=== PATIENT | male | born 1985 | race Caucasian/White ===

== ENCOUNTER 2020-02-03 23:16 | Emergency (ER) | payer SELFPAY ==
[~2020-02-03] VITALS: Ht 177.8 cm; Wt 79.0 kg
--- NOTE | 2020-02-03 23:27 | PHYS DOC ---
Past History Past Medical History: Anxiety, Depression Additional Past Medical Histor: self cutting Past Surgical History: No Surgical History Smoking: Cigarettes Alcohol Use: Occasionally Drug Use: Marijuana General Adult HPI: HPI: Patient is a [age] year old [sex] who presents with [] Review of Systems: Review of Systems: Constitutional: Denies fever or chills Eyes: Denies change in visual acuity HENT: Denies nasal congestion or sore throat Respiratory: Denies cough or shortness of breath Cardiovascular: Denies chest pain or edema GI: Denies abdominal pain, nausea, vomiting, bloody stools or diarrhea : Denies dysuria Musculoskeletal: Denies back pain or joint pain Integument: Denies rash Neurologic: Denies headache, focal weakness or sensory changes Endocrine: Denies polyuria or polydipsia Lymphatic: Denies swollen glands Psychiatric: Denies depression or anxiety Heart Score: Risk Factors: Risk Factors: DM, Current or recent (<one month) smoker, HTN, HLP, family history of CAD, obesity. Risk Scores: Score 0 - 3: 2.5% MACE over next 6 weeks - Discharge Home Score 4 - 6: 20.3% MACE over next 6 weeks - Admit for Clinical Observation Score 7 - 10: 72.7% MACE over next 6 weeks - Early Invasive Strategies Physical Exam: PE: Constitutional: Well developed, well nourished, no acute distress, non-toxic appearance. [] HENT: Normocephalic, atraumatic, bilateral external ears normal, oropharynx moist, no oral exudates, nose normal. [] Eyes: PERRLA, EOMI, conjunctiva normal, no discharge. [] Neck: Normal range of motion, no tenderness, supple, no stridor. [] Cardiovascular:Heart rate regular rhythm, no murmur [] Lungs & Thorax: Bilateral breath sounds clear to auscultation [] Abdomen: Bowel sounds normal, soft, no tenderness, no masses, no pulsatile masses. [] Skin: Warm, dry, no erythema, no rash. [] Back: No tenderness, no CVA tenderness. [] Extremities: No tenderness, no cyanosis, no clubbing, ROM intact, no edema. [] Neurologic: Alert and oriented X 3, normal motor function, normal sensory function, no focal deficits noted. [] Psychologic: Affect normal, judgement normal, mood normal. [] EKG: EKG: @2321 Sinus tachycardia at 110bpm, NO ST elevation, QRS 94ms, QT/QTc 334/458ms Radiology/Procedures: Radiology/Procedures: [] Course & Med Decision Making: Course & Med Decision Making Pertinent Labs and Imaging studies reviewed. (See chart for details) [] Dragon Disclaimer: Dragon Disclaimer: This electronic medical record was generated, in whole or in part, using a voice recognition dictation system. Departure Departure: Impression: Primary Impression: Anxiety Additional Impression: Atypical chest pain Disposition: 01 HOME/RESIDENCE PRIOR TO ADM (back to police custody) Condition: STABLE Patient Instructions: Anxiety and Panic Attacks, [id number], Chest Pain (Nonspecific), [id number] Scripts Lorazepam (ATIVAN) 1 Mg Tablet 0.5 TAB PO TID PRN for ANXIETY MDD 3 Tablet(s), #6 TAB 0 Refills Prov: CLAIR MERIDA DO 02/03/20 CLAIR MERIDA DO Feb 03, 2020 23:27
--- NOTE | 2020-02-03 23:47 | RAD ---
Exam: Chest one view INDICATION: Chest pain TECHNIQUE: Frontal view of the chest Comparisons: None FINDINGS: The cardiomediastinal silhouette and pulmonary vessels are within normal limits. The lung and pleural spaces are clear. IMPRESSION: No acute cardiopulmonary process. Electronically signed by: Shyanne Blevins MD (02/03/2020 11:44 PM) [facility]
[2020-02-03] MEDS ORDERED: LORA-254 PO (23:50)
[2020-02-04] VITALS: BP 131/82
[2020-02-04] MEDS ORDERED: LORazepam 1 MG TABLET PO ONE
[2020-02-04] MEDS ORDERED: LORazepam 1 MG TABLET ONE (00:10)
--- NOTE | 2020-02-04 04:30 | EKG ---
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
== END 2020-02-04 00:12 | disposition home or self-care (01) ==
LOC: ER 23:16
DX: F41.9 Anxiety disorder, unspecified (principal); R07.89 Other chest pain; F31.9 Bipolar disorder, unspecified; F17.210 Nicotine dependence, cigarettes, uncomplicated; Z91.5 Personal history of self-harm
CPT/HCPCS: 36415; 71045; 84484; 93005; 99285

== ENCOUNTER 2020-08-01 10:59 | Emergency (ER) | payer SELFPAY ==
[~2020-08-01 10:59] MED LIST: LORA-254 PO
== END 2020-08-01 11:18 | disposition left against medical advice (07) ==
LOC: ER 10:59
DX: R10.9 Unspecified abdominal pain (principal); R11.10 Vomiting, unspecified; Z53.21 Procedure and treatment not carried out due to patient leaving prior to being seen by health care provider

== ENCOUNTER 2020-08-07 22:30 | Emergency (ER) | payer SELFPAY ==
[~2020-08-07] VITALS: Ht 177.8 cm; Wt 79.0 kg
[2020-08-07] MEDS ORDERED: ONDANSETRON ODT 4 MG TAB.RAPDIS PO ONE (23:45)
[2020-08-07] MEDS ORDERED: diazePAM 5 MG TABLET. PO ONE (23:45)
--- NOTE | 2020-08-08 01:54 | PHYS DOC ---
Past History Past Medical History: Anxiety, Depression Additional Past Medical Histor: self cutting Past Surgical History: No Surgical History Smoking: Cigarettes Alcohol Use: Heavy Drug Use: Marijuana Adult General Chief Complaint Chief Complaint: ABDOMINAL PAIN HPI HPI Patient is a 35-year-old male who presents to the emergency department with a chief complaint of right lower quadrant pain. States he quit drinking alcohol and taking Ativan about 3 days ago but has not had a bowel movement in approximately 5 days. States over the last couple of days he has had several episodes of nonbloody nonbilious emesis and feels nauseous most of the time. States he said decreased appetite as well. Denies any recent travel, illnesses, fevers, chest pain, shortness of breath, dysuria, hematuria or blood in the stool. Review of Systems Review of Systems Review of systems otherwise unremarkable except noted in HPI Current Medications Current Medications Current Medications Medications (Trade) Dose Ordered Sig/Netta Start Time Stop Time Status Last Admin Dose Admin Diazepam (Valium) 10 mg 1X ONCE 08/07/20 23:45 08/07/20 23:46 DC 08/07/20 23:43 10 MG Ondansetron HCl (Zofran Odt) 8 mg 1X ONCE 08/07/20 23:45 08/07/20 23:46 DC 08/07/20 23:42 8 MG Allergies Allergies Allergies Coded Allergies Type Severity Reaction Last Updated Verified No Known Allergies Allergy Unknown 02/04/20 Yes Physical Exam Physical Exam Constitutional: Well developed, well nourished, no acute distress, non-toxic appearance. [] HENT: Normocephalic, atraumatic, bilateral external ears normal, oropharynx moist, no oral exudates, nose normal. [] Eyes: conjunctiva normal, no discharge. [] Cardiovascular: Sinus tachycardia Lungs & Thorax: Bilateral breath sounds clear to auscultation [] Abdomen: soft, right lower quadrant tenderness no masses, no pulsatile masses. [] Skin: Warm, dry, no erythema, no rash. [] Back: No tenderness, no CVA tenderness. [] Extremities: No tenderness, no cyanosis, no clubbing, ROM intact, no edema. [] Neurologic: Alert and oriented X 3, normal motor function, normal sensory function, no focal deficits noted. [] Psychologic: Affect normal, judgement normal, mood normal. [] EKG EKG [] Radiology/Procedures Radiology/Procedures []CT SCAN OF THE ABDOMEN AND PELVIS WITH IV CONTRAST. History: Reason: rlq pain, OMNI 300, 75ml / Spl. Instructions: / History: Comparison:None. Procedure: Contiguous axial images of the abdomen and pelvis were performed after the administration of 75 cc of Omni 300 IV contrast. Oral contrast: No. Findings: There is a 6.3 cm x 6.3 cm mixed cystic solid mass with calcifications arise from the head of the pancreas which appears to protrude into the duodenal sweep. There is inflammation surrounding the distal body and tail of the pancreas the pancreatic duct is mildly dilated. The common bile duct is dilated to 1.3 cm and appears to directly involve the cystic portion of this mass. The gallbladder is normal. The appendix is normal. The left colon is collapsed however the transverse colon and right colon are distended. There is a 2.5 cm length of mild to moderate wall thickening circumferentially in the mid transverse colon. Liver: Unremarkable Spleen: Unremarkable Adrenal Glands: Unremarkable Kidneys: Unremarkable There is no mass or lymphadenopathy. There is no free air. There is no free fluid. The urinary bladder appears normal. Impression: 1. Large mass appears to involve the head of pancreas and the distal common bile duct and protrudes into the duodenal sweep. This could be benign or malignant. Recommend ERCP. 2. Dilated pancreatic duct and inflammation surrounding the distal pancreas consistent with pancreatitis. 3. Apple core lesion of the mid transverse colon resulting in mild obstructive changes of the colon this could be adenocarcinoma. End impression PQRS Compliance Statement: Heart Score C/O Chest Pain: No Risk Factors: Risk Factors: DM, Current or recent (<one month) smoker, HTN, HLP, family history of CAD, obesity. Risk Scores: Risk Factors: DM, Current or recent (<one month) smoker, HTN, HLP, family history of CAD, obesity. Course & Med Decision Making Course & Med Decision Making Patient is a 35-year-old male who presents with right lower quadrant pain, nausea, vomiting and no bowel movement for 5 days Vital signs notable for tachycardia. Physical exam noted above. Patient placed on the monitor with IV access established and IV fluid resuscitation begun. Given Zofran and diazepam. Given morphine for pain control. Laboratory analysis notable for mild leukocytosis, elevated LFTs and a lipase greater than 13,000 suggestive of pancreatitis. Imaging notable for a large mass over the head of the pancreas which protrudes into the distal common bile duct and protrudes into the duodenum, with dilated pancreatic duct and inflammation consistent with pancreatitis with an apple core lesion in the transverse colon suggestive of adenocarcinoma. Patient continued on pain and nausea control. Discussed findings with family and recommended transfer to [facility] for continued evaluation and treatment by GI. Family grateful, verbalized understanding and agreed with plan of transfer and admission.. [] Dragon Disclaimer Dragon Disclaimer This electronic medical record was generated, in whole or in part, using a voice recognition dictation system. Departure Departure: Impression: Primary Impression: Pancreatitis due to biliary obstruction Additional Impressions: Mass of colon Pancreatic mass Disposition: 02 DC/TRF OTHER SHORT TERM HOS Admitting Physician: Marci Vega Condition: IMPROVED Referrals: PCP,NO (PCP) Problem Qualifiers MINGO JIMENEZ MD Aug 08, 2020 01:53
[2020-08-08] MEDS ORDERED: MORPHINE SULFATE 4 MG/ML DISP.SYRIN. IV ONE ×2 (02:15→04:00)
[2020-08-08] MEDS ORDERED: IOHEXOL 300 MG/ML 75 ML VIAL. IV ONE (02:15)
[2020-08-08] MEDS ORDERED: IV RINGERS SOLUTION,LACTATED 1,000 ML IV ONE ×2 (02:15→04:00)
[2020-08-08 02:20] LABS: BASO # 0.2 x10^3/uL (0.0-0.2); BASO % 1 % (0-3); EOS # 0.3 x10^3/uL (0.0-0.7); EOS % 2 % (0-3); HEMATOCRIT 49.1 % (39.0-53.0); HEMOGLOBIN 17.3 g/dL (13.0-17.5); LYMPH # 1.6 x10^3/uL (1.0-4.8); LYMPH % 13 % (24-48); MEAN CORPUSCULAR HEMOGLOBIN 32 pg (25-35); MEAN CORPUSCULAR HGB CONC 35 g/dL (31-37); MEAN CORPUSCULAR VOLUME 90 fL (79-100); MONO # 0.8 x10^3/uL (0.0-1.1); MONO % 7 % (0-9); NEUT # 9.8 x10^3uL (1.8-7.7); NEUT % 77 % (31-73); PLATELET COUNT 342 x10^3/uL (140-400); RED BLOOD COUNT 5.43 x10^6/uL (4.30-5.70); RED CELL DISTRIBUTION WIDTH 14.4 % (11.5-14.5); WHITE BLOOD COUNT 12.7 x10^3/uL (4.0-11.0)
[2020-08-08 02:32] LABS: CALCIUM 9.8 mg/dL (8.5-10.1); CREATININE 0.7 mg/dL (0.7-1.3); GFR 128.3
[2020-08-08 02:38] LABS: ALBUMIN 3.6 g/dL (3.4-5.0); ALBUMIN/GLOBULIN RATIO 1.1 (1.0-1.7); TOTAL BILIRUBIN 0.6 mg/dL (0.2-1.0); TOTAL PROTEIN 6.9 g/dL (6.4-8.2)
--- NOTE | 2020-08-08 03:31 | RAD ---
CT SCAN OF THE ABDOMEN AND PELVIS WITH IV CONTRAST. History: Reason: rlq pain, OMNI 300, 75ml / Spl. Instructions: / History: Comparison:None. Procedure: Contiguous axial images of the abdomen and pelvis were performed after the administration of 75 cc o f Omni 300 IV contrast. Oral contrast: No. Findings: There is a 6.3 cm x 6.3 cm mixed cystic solid mass with calcifications arise from the head of the perry creas which appears to protrude into the duodenal sweep. There is inflammation surrounding the distal body and tail of the pancreas the pancreatic duct is mildly dilated. The common bile duct is dilated to 1.3 cm and appears to directly involve the cystic portion of this mass. The gallbladder is normal. The appendix is normal. The left colon is collapsed however the transverse colon and right colon are distended. There is a 2. 5 cm length of mild to moderate wall thickening circumferentially in the mid transverse colon. Liver: Unremarkable Spleen: Unremarkable Adrenal Glands: Unremarkable Kidneys: Unremarkable There is no mass or lymphadenopathy. There is no free air. There is no free fluid. The urinary bladder appears normal. Impression: 1. Large mass appears to involve the head of pancreas and the distal common bile duct and protrudes i nto the duodenal sweep. This could be benign or malignant. Recommend ERCP. 2. Dilated pancreatic duct and inflammation surrounding the distal pancreas consistent with pancreati tis. 3. Apple core lesion of the mid transverse colon resulting in mild obstructive changes of the colon t his could be adenocarcinoma. End impression PQRS Compliance Statement: One or more of the following individualized dose reduction techniques were utilized for this examinat ion: 1. Automated exposure control 2. Adjustment of the mA and/or kV according to patient size 3. Use of iterative reconstruction technique Electronically signed by: Frank Costello III, MD (08/08/2020 3:28 AM) [facility]
[2020-08-08] MEDS ORDERED: METOCLOPRAMIDE HCL 10 MG/2 ML VIAL. IVP ONE (04:00)
[2020-08-08 05:10] VITALS: BP 131/68
== END 2020-08-08 05:22 | disposition short-term general hospital (02) ==
LOC: ER 22:30
DX: K85.90 Acute pancreatitis without necrosis or infection, unspecified (principal); K63.9 Disease of intestine, unspecified; K86.9 Disease of pancreas, unspecified; F41.9 Anxiety disorder, unspecified; F32.9 Major depressive disorder, single episode, unspecified; F17.210 Nicotine dependence, cigarettes, uncomplicated; F12.10 Cannabis abuse, uncomplicated
CPT/HCPCS: 36415; 74177; 80053; 83690; 85025; 96361; 96374; 96375; 96376; 99285; J2270; J2765; J7120; Q0162; Q9967

== ENCOUNTER 2020-08-31 10:24 | Emergency (ER) | payer SELFPAY ==
[~2020-08-31] VITALS: Ht 177.8 cm; Wt 72.1 kg
[2020-08-31] MEDS: IV NORMAL SALINE 1,000ML 1,000 ML IV SCH (10:46)
[2020-08-31] MEDS: ONDANSETRON PF 4 MG/2 ML VIAL. IVP ONE (10:47)
[2020-08-31] MEDS: MORPHINE SULFATE 4 MG/ML DISP.SYRIN. IV ONE (10:47)
[2020-08-31] MEDS: FAMOTIDINE 20 MG/2 ML VIAL IVP ONE (10:47)
--- NOTE | 2020-08-31 10:48 | EKG ---
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
[2020-08-31] MEDS ORDERED: IOHEXOL 240 MG/ML 50ML VIAL. ONE (10:56)
[2020-08-31 11:10] LABS: BASO # 0.1 x10^3/uL (0.0-0.2); BASO % 1 % (0-3); EOS # 0.8 x10^3/uL (0.0-0.7); EOS % 4 % (0-3); HEMATOCRIT 49.7 % (39.0-53.0); HEMOGLOBIN 16.9 g/dL (13.0-17.5); LYMPH # 2.4 x10^3/uL (1.0-4.8); LYMPH % 13 % (24-48); MEAN CORPUSCULAR HEMOGLOBIN 32 pg (25-35); MEAN CORPUSCULAR HGB CONC 34 g/dL (31-37); MEAN CORPUSCULAR VOLUME 93 fL (79-100); MONO # 0.7 x10^3/uL (0.0-1.1); MONO % 4 % (0-9); NEUT % 78 % (31-73); PLATELET COUNT 379 x10^3/uL (140-400); RED BLOOD COUNT 5.33 x10^6/uL (4.30-5.70); RED CELL DISTRIBUTION WIDTH 14.8 % (11.5-14.5); WHITE BLOOD COUNT 17.9 x10^3/uL (4.0-11.0)
--- NOTE | 2020-08-31 11:10 | PHYS DOC ---
Past History Past Medical History: Alcoholism, Anxiety, Depression, Pancreatitis Additional Past Medical Histor: self cutting Past Surgical History: No Surgical History Smoking: Cigarettes Alcohol Use: Heavy Drug Use: Marijuana General Adult EDM: Chief Complaint: ABDOMINAL PAIN HPI: HPI: 35-year-old male with past medical history of pancreatitis presents with diffuse abdominal discomfort with associated nausea. Patient reports symptoms started last night. Patient with history of recent pancreatitis requiring admission to [facility]. Patient was initially seen at [facility] in the emergency department on 08/07/2020. Patient was noted to have lipase greater than 13,[address] finding concerning for mass on the head of pancreas with associated common bile duct dilatation and common bile duct stones. There was also concern for a possible "apple core lesion of the transverse colon "at that time. Patient was subsequently admitted at [facility] and seen by GI and general surgery. Patient underwent procedure to aspirate the mass/cyst at the head of the pancreas. Patient was admitted for 14 days with IV fluid, pain/nausea medication, and was also on TPN. Patient subsequently discharged on 08/21/2020. Patient reports an ERCP was not performed nor was a ch olecystectomy. Patient was advised these were outpatient procedures. Patient reports given his lack of insurance he was unable to afford these procedures/surgeries. Patient denies trauma. Denies known sick contacts. Denies known exposure to COVID-19. Patient also reports history of alcohol abuse but reports he has not drank any alcohol since before his prior admission. Review of Systems: Review of Systems: Constitutional: Denies fever or chills; reports generalized malaise Eyes: Denies redness or eye pain HENT: Denies nasal congestion or sore throat Respiratory: Denies cough or shortness of breath Cardiovascular: Denies chest pain or palpitations GI: Reports diffuse abdominal pain and nausea; denies vomiting : Denies dysuria or hematuria Musculoskeletal: Denies back pain or joint pain Integument: Denies rash or skin lesions Neurologic: Denies headache, focal weakness or sensory changes Complete systems were reviewed and found to be within normal limits, except as documented in this note. Current Medications: Current Meds: Current Medications Medications (Trade) Dose Ordered Sig/Netta Start Time Stop Time Status Last Admin Dose Admin Famotidine (Pepcid Vial) 20 mg 1X ONCE 08/31/20 10:45 08/31/20 10:54 DC 08/31/20 10:47 20 MG Iohexol (Omnipaque 240 Mg/ml) 50 ml 1X ONCE 08/31/20 11:15 08/31/20 11:16 UNV Iohexol (Omnipaque 300 Mg/ml) 75 ml 1X ONCE 08/31/20 11:15 08/31/20 11:16 UNV Morphine Sulfate (Morphine 4mg Syringe) 4 mg 1X ONCE 08/31/20 10:45 08/31/20 10:54 DC 08/31/20 10:47 4 MG Ondansetron HCl (Zofran) 4 mg 1X ONCE 08/31/20 10:45 08/31/20 10:54 DC 08/31/20 10:47 4 MG Sodium Chloride 1,000 ml @ 100 mls/hr Q10H 08/31/20 10:45 08/31/20 20:44 08/31/20 10:46 100 MLS/HR Allergies: Allergies: Allergies Coded Allergies Type Severity Reaction Last Updated Verified No Known Allergies Allergy Unknown 02/04/20 Yes Physical Exam: PE: Constitutional: Well developed, well nourished, moderate pain, appears unco mfortable, non-toxic appearance HENT: Normocephalic, atraumatic Eyes: Conjunctiva normal, no discharge Neck: Normal range of motion, supple Lungs & Thorax: No respiratory distress, equal chest rise and fall Abdomen: Soft, diffuse tenderness, voluntary guarding, slight distention Skin: Warm, dry, no erythema, no rash Back: No tenderness, no CVA tenderness Extremities: No tenderness, ROM intact, no edema Neurologic: Alert and oriented X 3, no focal deficits noted Psychologic: Affect normal, judgment normal Current Patient Data: Vital Signs: Vital Signs Date Time Temp Pulse Resp B/P (MAP) Pulse Ox O2 Delivery O2 Flow Rate FiO2 08/31/20 10:24 130 60 129/66 (87) 97 Room Air EKG: EKG: @1035 NSR at 99bpm, NO ST elevation, QRS 94ms, QT/QTc 350/449ms Radiology/Procedures: Radiology/Procedures: PROCEDURE: CT ABD PELV W/ORAL&IV CONTRAST CLINICAL HISTORY: Diffuse abdominal pain TECHNIQUE: CT of the abdomen and pelvis was performed using standard technique, scanning from just above the dome of the diaphragm to the symphysis pubis fol lowing administration of intravenous contrast. CT Dose Reduction Employed: One or more of the following individualized dose r eduction techniques were utilized for this examination: 1. Automated exposure control 2. Adjustment of the mA and/or kV according to patient size 3. Use of iterative reconstruction technique. COMPARISON: CT abdomen/pelvis 08/16/2020 FINDINGS: Partially visualized heart and lung bases unremarkable. Decreased size of the multilocular collection/cystic lesion in the pancreatico duodenal groove measuring up to 3.9 x 4.2 cm on today's exam, previously 5.5 x 6.2 cm. Apparent communication with the distal common bile duct is again noted with slightly decreased diameter of the common bile duct, measuring 11 mm on today's exam and 13 mm previously. Similar-appearing intrahepatic biliary ductal dilation and dilation of the main pancreatic duct. Multiple small ca lcifications/stones in the vicinity of the distal common bile duct and along the medial margin of the collection, similar to prior study. The mass collection appears to surround at least 75 percent of the descending duodenal circumference with increased reactive changes in the duodenum and gastric antrum. There is also increased reactive changes in the ascending and proximal transverse colon. Increased moderate to marked mesenteric stranding in the right hemiabdomen with mild simple appearing fluid extending from the flora hepatis, along the dependent right hemiabdomen/paracolic gutter, and into the rectovesical pouch. Liver, gallbladder, spleen, adrenal glands, and kidneys unchanged. Mildly filled urinary bladder. No dilated bowel. Partially visualized appendix unremarkable. Arterial atherosclerotic calcification without aneurysm. No acute osseous abnormality. IMPRESSION: Decreased size of the nonspecific multilocular collection/cystic lesion in the pancreaticoduodenal groove, however, there are increased surrounding inflammatory/reactive changes as described. Electronically signed by: Celso Pete DO (08/31/2020 1:33 PM) [facility] Heart Score: C/O Chest Pain: N/A Course & Med Decision Making: Course & Med Decision Making Pertinent Labs and Imaging studies reviewed. (See chart for details) Patient with history of pancreatitis with cyst and prior choledocholithiasis presents with continued pain despite recent admission at [facility]. Abdomen with peritoneal signs. Pain/nausea addressed. IV fluid hydration given. Labs obtained and posted to chart. Lipase elevated to >4000. CT abdomen/pelvis with findings of of continued pancreatitis with continued choledocholithiasis to distal common bile duct despite ductal dilatation down from 13 mm to 11 mm. Patient requiring frequent pain control. Patient requiring admission. Offered readmission at [facility] given lack of GI and general surgery at [facility]. Patient requesting to be transferred to as he was dissatisfied with his previous care. Utilize transfer center. excepting of transfer for admission. Dr. Rickey Lang accepting of admission. Patient stable for transfer for admission to . Discussed findings and plan with patient and family, who acknowledge understanding and agreement. Maynor Disclaimer: Maynor Disclaimer: This electronic medical record was generated, in whole or in part, using a voice recognition dictation system. Departure Departure: Impression: Primary Impression: Pancreatitis Qualified Codes: K85.10 - Biliary acute pancreatitis without necrosis or infection Additional Impression: Choledocholithiasis Disposition: 02 SHORT TERM HOSPITAL (- Dr. Rickey Lang) Condition: STABLE Referrals: PCP,SYD (PCP) CLAIR MERIDA DO August 31, 2020 11:10
[2020-08-31] MEDS: IOHEXOL 240 MG/ML 50ML VIAL. PO ONE (11:51)
[2020-08-31] MEDS: IOHEXOL 300 MG/ML 75 ML VIAL. IV ONE (11:51)
[2020-08-31 11:59] LABS: ALBUMIN/GLOBULIN RATIO 1.2 (1.0-1.7); ALK PHOS 110 U/L (46-116); ALT (SGPT) 33 U/L (16-63); ANION GAP 9 (6-14); AST (SGOT) 15 U/L (15-37); BLOOD UREA NITROGEN 12 mg/dL (8-26); BUN/CREATININE RATIO 17 (6-20); CALCIUM 8.1 mg/dL (8.5-10.1); CARBON DIOXIDE 30 mmol/L (21-32); CHLORIDE 105 mmol/L (98-107); CREATININE 0.7 mg/dL (0.7-1.3); GFR 128.3; GLUCOSE 115 mg/dL (70-99); POTASSIUM 4.4 mmol/L (3.5-5.1); SODIUM 144 mmol/L (136-145); TOTAL BILIRUBIN 0.7 mg/dL (0.2-1.0); TOTAL PROTEIN 5.6 g/dL (6.4-8.2)
[2020-08-31 12:31] LABS: LIPASE 4159 U/L (73-393)
--- NOTE | 2020-08-31 13:35 | RAD ---
EXAMINATION: CT ABDOMEN+PELVIS W (CT ABDOMEN/PELVIS WITH IV CONTRAST) CLINICAL HISTORY: Diffuse abdominal pain TECHNIQUE: CT of the abdomen and pelvis was performed using standard technique, scanning from just ab ove the dome of the diaphragm to the symphysis pubis following administration of intravenous contrast . CT Dose Reduction Employed: One or more of the following individualized dose reduction techniques wer e utilized for this examination: 1. Automated exposure control 2. Adjustment of the mA and/or kV ac cording to patient size 3. Use of iterative reconstruction technique. COMPARISON: CT abdomen/pelvis 08/16/2020 FINDINGS: Partially visualized heart and lung bases unremarkable. Decreased size of the multilocular collection/cystic lesion in the pancreaticoduodenal groove measuri ng up to 3.9 x 4.2 cm on today's exam, previously 5.5 x 6.2 cm. Apparent communication with the dista l common bile duct is again noted with slightly decreased diameter of the common bile duct, measuring 11 mm on today's exam and 13 mm previously. Similar-appearing intrahepatic biliary ductal dilation a nd dilation of the main pancreatic duct. Multiple small calcifications/stones in the vicinity of the distal common bile duct and along the medial margin of the collection, similar to prior study. The ma ss collection appears to surround at least 75 percent of the descending duodenal circumference with i ncreased reactive changes in the duodenum and gastric antrum. There is also increased reactive change s in the ascending and proximal transverse colon. Increased moderate to marked mesenteric stranding i n the right hemiabdomen with mild simple appearing fluid extending from the flora hepatis, along the dependent right hemiabdomen/paracolic gutter, and into the rectovesical pouch. Liver, gallbladder, spleen, adrenal glands, and kidneys unchanged. Mildly filled urinary bladder. No dilated bowel. Partially visualized appendix unremarkable. Arterial atherosclerotic calcification without aneurysm. No acute osseous abnormality. IMPRESSION: Decreased size of the nonspecific multilocular collection/cystic lesion in the pancreaticoduodenal gr oove, however, there are increased surrounding inflammatory/reactive changes as described. Electronically signed by: Celso Pete DO (08/31/2020 1:33 PM) [facility]
[2020-08-31] MEDS: HYDROmorphone PF 1 MG/ML DISP.SYRIN IVP ONE ×3 (13:50→18:53)
[2020-08-31 14:05] LABS: BILIRUBIN,URINE SMALL (NEG); CLARITY,URINE CLOUDY; COLOR,URINE AMBER; GLUCOSE,URINE NEG (NEG); NITRITE,URINE NEG (NEG); UROBILINOGEN,URINE 0.2 mg/dL (0.2 mg/dL)
[2020-08-31 14:09] LABS: BACTERIA,URINE 0 /HPF (0-FEW); RBC,URINE OCC /HPF (0-2)
[2020-08-31 14:10] LABS: SQUAMOUS EPITHELIAL CELL,UR OCC /LPF
[2020-08-31] MEDS: NICOTINE 21MG PATCH. TD ONE (15:35)
[2020-08-31 16:19] LABS: % ATYL 1 % (0-0); % BANDS 1 % (0-9); % EOS 4 % (0-5); % LYMPHS 15 % (24-48); % MONOS 2 % (0-10); % SEGS 77 % (35-66)
[2020-08-31 16:23] LABS: PLT ESTIMATE ADEQUATE (ADEQUATE)
[2020-08-31 16:25] LABS: POLYCHROMASIA PRESENT
[2020-08-31 19:20] VITALS: BP 108/45
== END 2020-08-31 19:30 | disposition short-term general hospital (02) ==
LOC: ER 10:24
DX: K85.90 Acute pancreatitis without necrosis or infection, unspecified (principal); K80.50 Calculus of bile duct without cholangitis or cholecystitis without obstruction; F41.9 Anxiety disorder, unspecified; F32.9 Major depressive disorder, single episode, unspecified; F17.210 Nicotine dependence, cigarettes, uncomplicated; F10.20 Alcohol dependence, uncomplicated; Z20.822 Contact with and (suspected) exposure to COVID-19; Y90.0 Blood alcohol level of less than 20 mg/100 ml
CPT/HCPCS: 36415; 74177; 80053; 81001; 82553; 83605; 83690; 84484; 85007; 85025; 85610; 85730; 87426; 93005; 96361; 96374; 96375; 96376; 99285; C9803; G0480; J1170; J2060; J2270; J2405; J3490; J7030; Q9966; Q9967; U0003

== ENCOUNTER 2020-10-30 11:57 | Emergency (ER) | payer SELFPAY ==
[~2020-10-30] VITALS: Ht 177.8 cm; Wt 64.8 kg
[2020-10-30] MEDS ORDERED: IOHEXOL 300 MG/ML 75 ML VIAL. IV ONE (12:45)
[2020-10-30] MEDS ORDERED: IV NORMAL SALINE 1,000ML 1,000 ML IV ONE (12:45)
[2020-10-30] MEDS ORDERED: HYDROmorphone PF 1 MG/ML DISP.SYRIN IVP ONE ×2 (12:45→15:15)
[2020-10-30] MEDS ORDERED: ONDANSETRON PF 4 MG/2 ML VIAL. IVP ONE (12:45)
[2020-10-30 12:59] LABS: BASO # 0.1 x10^3/uL (0.0-0.2); BASO % 1 % (0-3); EOS # 0.3 x10^3/uL (0.0-0.7); EOS % 3 % (0-3); HEMATOCRIT 38.5 % (39.0-53.0); HEMOGLOBIN 12.6 g/dL (13.0-17.5); LYMPH # 1.4 x10^3/uL (1.0-4.8); LYMPH % 14 % (24-48); MEAN CORPUSCULAR HEMOGLOBIN 27 pg (25-35); MEAN CORPUSCULAR HGB CONC 33 g/dL (31-37); MEAN CORPUSCULAR VOLUME 83 fL (79-100); MONO # 0.5 x10^3/uL (0.0-1.1); MONO % 5 % (0-9); NEUT # 7.8 x10^3uL (1.8-7.7); NEUT % 78 % (31-73); PLATELET COUNT 354 x10^3/uL (140-400); RED BLOOD COUNT 4.63 x10^6/uL (4.30-5.70); RED CELL DISTRIBUTION WIDTH 18.3 % (11.5-14.5); WHITE BLOOD COUNT 10.1 x10^3/uL (4.0-11.0)
[2020-10-30 13:07] LABS: CALCIUM 9.8 mg/dL (8.5-10.1); POTASSIUM 4.1 mmol/L (3.5-5.1)
[2020-10-30 13:13] LABS: ALBUMIN 3.3 g/dL (3.4-5.0); ALBUMIN/GLOBULIN RATIO 0.7 (1.0-1.7); TOTAL BILIRUBIN 0.5 mg/dL (0.2-1.0); TOTAL PROTEIN 7.9 g/dL (6.4-8.2)
--- NOTE | 2020-10-30 13:30 | PHYS DOC ---
Past History Past Medical History: Alcoholism, Anxiety, Depression, Pancreatitis Additional Past Medical Histor: Colon (CLAIR GUNN APRN) Past Surgical History: Other Additional Past Surgical Histo: GI (CLAIR GUNN APRN) Smoking: Cigarettes Alcohol Use: Heavy Drug Use: Marijuana (CLAIR GNUN APRN) Adult General Chief Complaint Chief Complaint: MULTIPLE COMPLAINTS HPI HPI Patient is a 35-year-old male who presents to the emergency department with a chief complaint of diffuse abdominal pain and increased pain at his J-Vac insertion site on his right flank area since evening when he noticed his drain became clogged and he has been unable to flush saline through since. Patient reports a 9 out of 10 pain. States he had his J-Vac placed at [facility] 3 weeks ago, reports he called his [facility] physician Dr. Jhony Bellamy who has made him an appointment for replacement of his J-Vac drain this coming Saturday, November [id number]. Patient states he has been treating his pain with 15 mg morphine sulfate tablets and 5 mg oxycodones without relief. Patient states the J-Vac drain was placed related to a history of acute pancreatitis with abscesses that have required draining, patient states that he is being followed by a infectious disease physician who has identified the infection to be fungal in nature, patient states he just finished his oral antibiotic regimen of fluconazole yesterday. Patient states he came to the emergency department today because he can no longer take the pain. Patient also states he is having difficulty hearing out of both his ears. Denies ear pain. States that he can hear normally unless he is speaking and he notices decreased hearing while he is speaking. Patient denies any recent fever or chills, denies any nasal or chest congestion, denies chest pains. Patient reports his last bowel movement was 3 days ago a large amount of soft stool, states he has not had a bowel movement since. Patient denies any burning or pressure with urination. Patient denies any increased thirst or increased urination. Patient denies any dizziness, denies headaches, denies visual changes. Patient denies any other physical complaints or physical concerns. Patient states he used to drink alcohol but has not drank alcohol in the past 3 months. Patient states that he does smoke cigarettes but is trying to quit using nicotine patches, patient denies illicit drug use. (CLAIR GUNN APRN) Review of Systems Review of Systems 14 body systems of review of systems have been reviewed. See HPI for pertinent positives and negative responses, otherwise all other systems are negative, nonpertinent or noncontributory. (CLAIR GUNN APRN) Current Medications Current Medications Current Medications Medications (Trade) Dose Ordered Sig/Netta Start Time Stop Time Status Last Admin Dose Admin Hydromorphone HCl (Dilaudid) 1 mg 1X ONCE 10/30/20 12:45 10/30/20 12:46 DC 10/30/20 12:44 1 MG Iohexol (Omnipaque 300 Mg/ml) 75 ml 1X ONCE 10/30/20 12:45 10/30/20 12:48 DC Ondansetron HCl (Zofran) 4 mg 1X ONCE 10/30/20 12:45 10/30/20 12:46 DC 10/30/20 12:45 4 MG Sodium Chloride 1,000 ml @ 1,000 mls/hr 1X ONCE 10/30/20 12:45 10/30/20 13:44 10/30/20 12:44 1,000 MLS/HR (CLAIR GUNN APRN) Allergies Allergies Allergies Coded Allergies Type Severity Reaction Last Updated Verified No Known Allergies Allergy Unknown 02/04/20 Yes (CLAIR GUNN APRN) Physical Exam Physical Exam Constitutional: Well developed, well nourished, 35-year-old male in no apparent distress, nontoxic in appearance, patient's complaint of pain exceeds patient's physical appearance and presentation. HENT: Normocephalic, atraumatic. Bilateral TMs within normal limits, no drainage appreciated from bilateral external auditory canals, no erythema appreciated. Oropharynx pink, moist, no edema or erythema appreciated, patient speaking in normal voice tones, no drooling, no trismus appreciated. Eyes: Conjunctiva normal, no discharge. Neck: Normal range of motion, no stridor. Cardiovascular: No cyanosis appreciated, distal cap refill less than 2 seconds. Lungs & Thorax: Patient is in no respiratory distress, no audible adventitious lung sounds appreciated. Abdomen: Abdomen soft, diffuse tenderness to palpation, no discoloration of the skin or bruising of the abdomen appreciated. Normal bowel sounds per auscultation. Skin: Warm, dry, no erythema, no rash. Back: No tenderness, no deformities. Except for right flank at J-tube insertion site, tenderness to palpation, no erythema or drainage appreciated from insertion site, no induration or masses appreciated. J-tube sutured in place, does not appear to be dislodged, attempted to flush J-tube with normal saline without success, no pain elicited during flushing attempt with normal saline. Scant purulent drainage noted and drainage bag. Extremities: No tenderness, no cyanosis, no clubbing, ROM intact, no edema. Neurologic: Alert and oriented X 3, normal motor function, normal sensory function, no focal deficits noted. Psychologic: Affect normal, judgement normal, mood normal. (CLAIR GUNN APRN) Current Patient Data Vital Signs Vital Signs Date Time Temp Pulse Resp B/P (MAP) Pulse Ox O2 Delivery O2 Flow Rate FiO2 10/30/20 12:44 16 10/30/20 12:32 99.0 10/30/20 12:09 115 123/72 96 Lab Results Laboratory Tests Test 10/30/20 12:42 White Blood Count 10.1 x10^3/uL (4.0-11.0) Red Blood Count 4.63 x10^6/uL (4.30-5.70) Hemoglobin 12.6 g/dL (13.0-17.5) L Hematocrit 38.5 % (39.0-53.0) L Mean Corpuscular Volume 83 fL (79-100) Mean Corpuscular Hemoglobin 27 pg (25-35) Mean Corpuscular Hemoglobin Concent 33 g/dL (31-37) Red Cell Distribution Width 18.3 % (11.5-14.5) H Platelet Count 354 x10^3/uL (140-400) Neutrophils (%) (Auto) 78 % (31-73) H Lymphocytes (%) (Auto) 14 % (24-48) L Monocytes (%) (Auto) 5 % (0-9) Eosinophils (%) (Auto) 3 % (0-3) Basophils (%) (Auto) 1 % (0-3) Neutrophils # (Auto) 7.8 x10^3uL (1.8-7.7) H Lymphocytes # (Auto) 1.4 x10^3/uL (1.0-4.8) Monocytes # (Auto) 0.5 x10^3/uL (0.0-1.1) Eosinophils # (Auto) 0.3 x10^3/uL (0.0-0.7) Basophils # (Auto) 0.1 x10^3/uL (0.0-0.2) Sodium Level 137 mmol/L (136-145) Potassium Level 4.1 mmol/L (3.5-5.1) Chloride Level 98 mmol/L (98-107) Carbon Dioxide Level 30 mmol/L (21-32) Anion Gap 9 (6-14) Blood Urea Nitrogen 12 mg/dL (8-26) Creatinine 1.0 mg/dL (0.7-1.3) Estimated GFR (Cockcroft-Gault) 85.0 BUN/Creatinine Ratio 12 (6-20) Glucose Level 125 mg/dL (70-99) H Calcium Level 9.8 mg/dL (8.5-10.1) Total Bilirubin Pending Aspartate Amino Transferase (AST) Pending Alanine Aminotransferase (ALT) Pending Alkaline Phosphatase Pending Total Protein Pending Albumin Pending Albumin/Globulin Ratio Pending Lipase Pending (CLAIR GUNN APRN) EKG EKG [] (CLAIR GUNN APRN) Radiology/Procedures Radiology/Procedures PATIENT: MICHELLE VILLEDA EACCOUNT: [id number] : 1985 LOCATION: ER AGE: 35 SEX: M EXAM STATUS: REG ER ORD. PHYSICIAN: CLAIR GUNN APRN REASON: pancreatic disease hx, clogged j-tube drain, diffuse pain PROCEDURE: CT ABD PELV W/ IV CONTRST ONLY CT ABDOMEN+PELVIS W History: Reason: pancreatic disease hx, clogged j-tube drain, diffuse pain / Spl. Instructions: omni 300 75ml iv only / History: Technique: After the administration of intravenous contrast, CT imaging was performed of the abdomen and pelvis. Multiplanar images are reviewed. Exposure: One or more of the following individualized dose reduction techniques were utilized for this examination: 1. Automated exposure control 2. Adjustment of the mA and/or kV according to patient size 3. Use of iterative reconstruction technique. Comparison: August 31, 2020 Findings: Lower chest: No consolidation or pleural effusion. Abdomen and pelvis: Pancreatic and common bile duct stent noted. Pneumobilia. Air within the gallbladder. No gallbladder wall thickening. Pancreatic head calcifications. Previously seen cystic lesions within the region of the pancreatic head are significantly decreased and resolved. Right mid abdominal pigtail drainage catheter within previously seen inferior peripancreatic fluid collection with mild residual fluid surrounding the catheter gas. Mild stranding extending into the right lower quadrant decreased compared to prior. Small right posterior hepatic hypodensity, unchanged. The spleen, and adrenal glands are unremarkable. No hydronephrosis. No renal calculus. Decompressed urinary bladder. Moderately distended fluid-filled loops of proximal and mid small bowel throughout the abdomen. Transition point within the right lower abdomen in the region of inflammatory changes with bowel wall thickening inferior to the previous mentioned pigtail pigtail catheter. No pneumatosis. No pneumoperitoneum. There is tethering of small bowel within this region with potential fistulous communication. Heterogeneous area centrally within this region measures 2.7 x 2.5 x 4.9 cm. Multiple mildly prominent mesenteric lymph nodes, likely reactive. Normal appendix with contrast. Prior contrast throughout the colon. Bones: No pathologic osseous lesions. Impression: 1. Small bowel obstruction with transition point in the right lower quadrant and the region of inflammatory changes and small bowel tethering with potential fistulous communication. Recommend follow-up. Also recommend oral contrast at time of follow-up. 2. Heterogeneous region within the right lower quadrant inflammatory changes, may represent bowel loop. Recommend attention on follow-up to exclude abscess. 3. Right mid abdominal pigtail catheter with small surrounding fluid and gas. 4. Changes of chronic pancreatitis with pancreatic and common bile duct stent. Electronically signed by: Jesus Hein DO (10/30/2020 1:56 PM) [facility] DICTATED AND SIGNED BY: JESUS HEIN DO DATE: 10/30/20 1336 CC: CLAIR GUNN APRN; PCP,NO ~MTH0 0 (CLAIR GUNN APRN) Heart Score C/O Chest Pain: No Risk Factors: Risk Factors: DM, Current or recent (<one month) smoker, HTN, HLP, family history of CAD, obesity. Risk Scores: Risk Factors: DM, Current or recent (<one month) smoker, HTN, HLP, family history of CAD, obesity. (CLAIR GUNN APRN) Course & Med Decision Making Course & Med Decision Making Pertinent Labs and Imaging studies reviewed. (See chart for details) 35-year-old male, vital signs reviewed, presents emergency department concerning increased abdominal pain, and J-tube not draining, unable to flush J-tube at home since last . Physical examination concerning for J-tube drain plug, unable to flush with normal saline. Patient does not appear toxic, is in no obvious distress, does however complain of 9 out of 10 pain. With a history of acute pancreatitis with complications requiring J-tube drain and close atten tion by GI, interventional radiology, and infectious disease, will order IV saline lock, normal saline 1000 cc IV, 4 mg Zofran for nausea prophylaxis, 1 mg of Dilaudid IV, CBC, CMP, lactic acid, lipase. CT abdomen pelvis with IV contrast, will evaluate pain control after period of time. Discussed with patient after radiological imaging and lab work will consult with physicians. Patient is amenable to this plan. CT abdomen pelvis with IV contrast revealed small bowel obstruction with other abdominal anomaly, discussed findings with patient also discussed recommendation for admission to hospital, patient states he still requests [facility] related to his ongoing recent care has been at [facility]. Will consult transfer center. Ordered patient 100 mg fentanyl IV for 9 out of 10 pain. At 1425 discussed patient with [facility] center pharmaceutical service representative Daily KEITH, Daily KEITH states she will consult with her inpatient physician and call back. 1500 patient still complaining of 9 out of 10 pain, will give 1 more milligram IV Dilaudid, patient states that when he was at [facility] during his last admission he was receiving 4 mg of Dilaudid at a time. Discussed with patient 4 mg Dilaudid at 1 time is extremely high dosing, will give 1 mg at a time with constant bedside monitoring of cardiorespiratory status while giving disc pain medication. Patient amenable to this plan. At 1510 transfer center [employer] Daily KEITH return call reporting inpatient management physician Dr. Levar Mills agreed patient needs inpatient criteria and has accepted patient in transfer to [facility] for further evaluation and treatment of patient's physical presentation and findings. No further provider to provider report needed, [facility] center [employer] Daily KEITH states she will call back with a bed number for nurse report. EMTALA transfer forms reviewed and signed by ED attending physician Dr. Chan. At 1530 notified by the patient's ED nurse that the patient wishes to leave A GAINST MEDICAL ADVICE. The patient and I had an extensive discussion regarding the risks of leaving AMA including but not limited to , permanent disability, and worsening condition. Also had an extensive discussion with the patient regarding the benefits of excepting admission and transfer which include promotion of health and wellness, and ongoing treatment of disease processes. The patient acknowledged the risks and benefits and agreed to take full responsibility of leaving AGAINST MEDICAL ADVICE. The patient was alert and oriented x4 and had full medical decision-making capability when they signed the AMA forms. At 1545 notified transfer center [employer] Daily KEITH of patient's leaving AGAINST MEDICAL ADVICE, transfer center [employer] Daily KEITH stated she would let Dr. Levar Mills know of the situation. (CLAIR GUNN APRN) Course & Med Decision Making The patient was informed multiple times that his condition was serious and could potentially be life-threatening. Risks were explained to the patient including the possibility of and he refused to stay in the hospital or be transferred. He left AGAINST MEDICAL ADVICE. (KEITH CHAN DO) Dragon Disclaimer Dragon Disclaimer This electronic medical record was generated, in whole or in part, using a voice recognition dictation system. (CLAIR GUNN APRN) Attending Co-Sign The patient was seen and interviewed as well as examined at the bedside. The chart was reviewed. The case was discussed. Agree with the plan of care. (KEITH CHAN DO) Departure Departure: Impression: Primary Impression: Abdominal pain Additional Impressions: Abnormal abdominal CT scan Small bowel obstruction Pancreatic disease Jejunostomy tube site pain Left against medical advice Disposition: 07 LEFT AWOL/ELOPED Condition: GUARDED Referrals: PCP,NO (PCP) Additional Instructions: You were seen in the emergency department for a clogged J-tube during an increasing abdominal pain that is unrelieved with your oral pain medications at home. You were given IV Dilaudid and IV fentanyl for pain which you reported did not seem to help much. A CT scan of your abdomen and pelvis was performed today and revealed the following findings per our house radiologist interpretation: 1. Small bowel obstruction with transition point in the right lower quadrant and the region of inflammatory changes and small bowel tethering with potential fistulous communication. Recommend follow-up. Also recommend oral contrast at time of follow-up. 2. Heterogeneous region within the right lower quadrant inflammatory changes, may represent bowel loop. Recommend attention on follow-up to exclude abscess. 3. Right mid abdominal pigtail catheter with small surrounding fluid and gas. 4. Changes of chronic pancreatitis with pancreatic and common bile duct stent. Due to these findings, I have recommended to you admission to the hospital to see a surgeon today. You had requested [facility] and I arranged for you to be admitted to [facility] under the inpatient practicing physician Dr. Levar Mills. Dr. Levar Mills agreed to admit you to [facility] for further evaluation of your symptoms and CT findings. You have since decided to leave [place] emergency department AGAINST MEDICAL ADVICE. I spoke with you at bedside extensively regarding the risks and benefits of leaving AGAINST ME DICAL ADVICE versus excepting transfer and admission to [facility]. I have urged you to reconsider your decision to leave AGAINST MEDICAL ADVICE, however you have adamantly refused transfer and admission to [facility] stating that you want to stay at home with family during the holiday and are tired of your long recent admissions to hospitals. I have asked you to sign a leaving AGAINST MEDICAL ADVICE form which you agreed to do so. I strongly encourage you to please return to the nearest emergency department for worsening symptoms. I am very worried that your symptoms will worsen and your health will worsen and that you may suffer from permanent disability or from this decision to leave AGAINST MEDICAL ADVICE. Patient does not wish to proceed with medical care recommended by ROSELIA Parra. Patient given information related to possible compli cations, up to and including , which could occur as a result of leaving the hospital at this time. Patient verbalizes understanding of risks involved due to leaving against medical advice. Patient has signed AMA form. Problem Qualifiers Primary Impression: Abdominal pain Abdominal location: generalized Qualified Codes: R10.84 - Generalized abdominal pain CLAIR GUNN APRN Oct 30, 2020 13:30 KEITH CHAN DO Oct 31, 2020 07:13
--- NOTE | 2020-10-30 13:58 | RAD ---
CT ABDOMEN+PELVIS W History: Reason: pancreatic disease hx, clogged j-tube drain, diffuse pain / Spl. Instructions: omni 300 75ml iv only / History: Technique: After the administration of intravenous contrast, CT imaging was performed of the abdomen and pelvis. Multiplanar images are reviewed. Exposure: One or more of the following individualized dose reduction techniques were utilized for thi s examination: 1. Automated exposure control 2. Adjustment of the mA and/or kV according to patient size 3. Use of iterative reconstruction technique. Comparison: August 31, 2020 Findings: Lower chest: No consolidation or pleural effusion. Abdomen and pelvis: Pancreatic and common bile duct stent noted. Pneumobilia. Air within the gallblad solitario. No gallbladder wall thickening. Pancreatic head calcifications. Previously seen cystic lesions w ithin the region of the pancreatic head are significantly decreased and resolved. Right mid abdominal pigtail drainage catheter within previously seen inferior peripancreatic fluid collection with mild residual fluid surrounding the catheter gas. Mild stranding extending into the right lower quadrant d ecreased compared to prior. Small right posterior hepatic hypodensity, unchanged. The spleen, and adrenal glands are unremarkable . No hydronephrosis. No renal calculus. Decompressed urinary bladder. Moderately distended fluid-filled loops of proximal and mid small bowel throughout the abdomen. Jimenez sition point within the right lower abdomen in the region of inflammatory changes with bowel wall thi ckening inferior to the previous mentioned pigtail pigtail catheter. No pneumatosis. No pneumoperiton eum. There is tethering of small bowel within this region with potential fistulous communication. Het erogeneous area centrally within this region measures 2.7 x 2.5 x 4.9 cm. Multiple mildly prominent mesenteric lymph nodes, likely reactive. Normal appendix with contrast. Lydia or contrast throughout the colon. Bones: No pathologic osseous lesions. Impression: 1. Small bowel obstruction with transition point in the right lower quadrant and the region of infla mmatory changes and small bowel tethering with potential fistulous communication. Recommend follow-up . Also recommend oral contrast at time of follow-up. 2. Heterogeneous region within the right lower quadrant inflammatory changes, may represent bowel lo op. Recommend attention on follow-up to exclude abscess. 3. Right mid abdominal pigtail catheter with small surrounding fluid and gas. 4. Changes of chronic pancreatitis with pancreatic and common bile duct stent. Electronically signed by: Jesus Hein DO (10/30/2020 1:56 PM) [facility]
[2020-10-30 15:09] LABS: BACTERIA,URINE 0 /HPF (0-FEW); BILIRUBIN,URINE NEG (NEG); CLARITY,URINE CLEAR; COLOR,URINE AMBER; GLUCOSE,URINE NEG (NEG); NITRITE,URINE NEG (NEG); RBC,URINE 0 /HPF (0-2); SQUAMOUS EPITHELIAL CELL,UR OCC /LPF; UROBILINOGEN,URINE 0.2 mg/dL (0.2 mg/dL); WBC,URINE 0 /HPF (0-4)
[2020-10-30 15:36] VITALS: BP 133/84
== END 2020-10-30 15:51 | disposition left against medical advice (07) ==
LOC: ER 11:57
DX: K56.609 Unspecified intestinal obstruction, unspecified as to partial versus complete obstruction (principal); K86.9 Disease of pancreas, unspecified; R93.5 Abnormal findings on diagnostic imaging of other abdominal regions, including retroperitoneum; R10.84 Generalized abdominal pain; F41.9 Anxiety disorder, unspecified; F32.9 Major depressive disorder, single episode, unspecified; F17.210 Nicotine dependence, cigarettes, uncomplicated; F10.20 Alcohol dependence, uncomplicated; Z93.4 Other artificial openings of gastrointestinal tract status; Y90.9 Presence of alcohol in blood, level not specified
CPT/HCPCS: 36415; 74177; 80053; 81001; 83605; 83690; 85025; 96361; 96374; 96375; 96376; 99285; J1170; J2405; J3010; J7030

== ENCOUNTER 2020-12-12 09:52 | Emergency (ER) | payer MEDICAID ==
[~2020-12-12] VITALS: Ht 177.8 cm; Wt 64.8 kg
[2020-12-12] MEDS ORDERED: ONDANSETRON PF 4 MG/2 ML VIAL. IVP ONE (10:15)
[2020-12-12] MEDS ORDERED: MORPHINE SULFATE 4 MG/ML DISP.SYRIN. IV ONE (10:15)
[2020-12-12] MEDS ORDERED: IV NORMAL SALINE 1,000ML 1,000 ML IV ONE (10:15)
[2020-12-12 10:42] LABS: BASO # 0.1 x10^3/uL (0.0-0.2); BASO % 1 % (0-3); EOS # 0.1 x10^3/uL (0.0-0.7); EOS % 1 % (0-3); HEMATOCRIT 46.9 % (39.0-53.0); HEMOGLOBIN 16.1 g/dL (13.0-17.5); LYMPH # 1.2 x10^3/uL (1.0-4.8); LYMPH % 10 % (24-48); MEAN CORPUSCULAR HEMOGLOBIN 28 pg (25-35); MEAN CORPUSCULAR HGB CONC 34 g/dL (31-37); MEAN CORPUSCULAR VOLUME 83 fL (79-100); MONO # 0.5 x10^3/uL (0.0-1.1); MONO % 4 % (0-9); NEUT # 10.2 x10^3uL (1.8-7.7); NEUT % 85 % (31-73); PLATELET COUNT 309 x10^3/uL (140-400); RED BLOOD COUNT 5.66 x10^6/uL (4.30-5.70); RED CELL DISTRIBUTION WIDTH 18.6 % (11.5-14.5); WHITE BLOOD COUNT 12.1 x10^3/uL (4.0-11.0)
[2020-12-12 11:27] LABS: CALCIUM 9.2 mg/dL (8.5-10.1); CREATININE 0.6 mg/dL (0.7-1.3); GFR 153.3; POTASSIUM 3.9 mmol/L (3.5-5.1)
[2020-12-12 11:33] LABS: ALBUMIN 3.5 g/dL (3.4-5.0); TOTAL BILIRUBIN 0.5 mg/dL (0.2-1.0); TOTAL PROTEIN 7.1 g/dL (6.4-8.2)
--- NOTE | 2020-12-12 11:38 | RAD ---
INDICATION: Reason: EPIGASTRIC PAIN, HX PANCREATITIS / Spl. Instructions: / History: . COMPARISON: October 30, 2020 TECHNIQUE: Axial CT images obtained through the abdomen and pelvis without contrast. One or more of the following individualized dose reduction techniques were utilized for this examinat ion: 1. Automated exposure control; 2. Adjustment of the mA and/or kV according to patient size; 3 . Use of iterative reconstruction technique. FINDINGS: Abdominal aorta is not aneurysmal. Calcific atherosclerosis is seen. Fat-containing left inguinal hernia. Pneumobilia is seen as well as stent within the common bile duct. Liver is prominent in size. Mixed density at the pancreatic head and uncinate process with calcifications as well as low-density region within. There is adjacent edema to the fat at the pancreas as well as the duodenum. Duodenal w all appears prominent in thickness as well. Pancreatic duct stent is no longer seen with portion of t he pancreatic duct dilated up to about 4-5 mm. Spleen unremarkable. No hydronephrosis. Nodular thickening of the left adrenal gland. Urinary bladder is partially distended. Wall mildly prominent but could be from lack of distention. There is a drain seen within the right lower quadrant of the abdomen at the site of previously identi fied fluid and air collection. There is been interval decrease in the fluid and air collection with o nly a trace amount of fluid seen at this site with adjacent stranding to the fat. Repeat demonstration of inflammatory changes at the right lower quadrant of the abdomen. Appendix par tially seen measuring approximately 6-7 mm IMPRESSION: * Repeat demonstration of pigtail catheter in the right lower quadrant the abdomen with the surround ing fluid and air collection decreased from prior with only a trace amount of fluid seen at this site . There is some persistent edema and adjacent fluid tracking superiorly and inferiorly but this is a mild finding. * Heterogenous appearance of the pancreatic head and uncinate process with calcifications within the area as well as areas of low density which could be secondary to acute on chronic pancreatitis. Ther e is also wall thickening and edema of the adjacent duodenum which may be secondarily inflamed or sec ondary to duodenitis or duodenal ulcer. * There is a couple loops of small bowel the left-side of the abdomen with prominent wall which coul d be from contraction with enteritis not excluded. * Suspected appendix is borderline in size. Electronically signed by: Brandon Collier MD (12/12/2020 11:36 AM) [id number]
--- NOTE | 2020-12-12 11:46 | PHYS DOC ---
Past History Past Medical History: Alcoholism, Anxiety, Depression, Pancreatitis Additional Past Medical Histor: Colon (LEELEE GLASS APRN) Past Surgical History: Other Additional Past Surgical Histo: GI (LEELEE GLASS APRN) Smoking: Cigarettes Alcohol Use: Heavy Drug Use: Marijuana (LEELEE GLASS APRN) General Adult EDM: Chief Complaint: ABDOMINAL PAIN HPI: HPI: Patient is a 35-year-old male who presents with generalized abdominal pain. Patient states "I have been dealing with this abdominal pain for the last 3 months and had to have fluid drained from my belly 4 times". "They told me it was from pancreatitis". Patient's been taking pain meds at home but states is not helping. Patient is also complaining of nausea and vomiting. Patient's pain is 8/10. Patient has an appointment today with his surgeon for follow-up. (LEELEE GLASS APRN) Review of Systems: Review of Systems: Constitutional: Denies fever or chills Eyes: Denies change in visual acuity HENT: Denies nasal congestion or sore throat Respiratory: Denies cough or shortness of breath Cardiovascular: Denies chest pain or edema GI: Reports generalized abdominal pain, nausea. Denies vomiting or diarrhea. : Denies dysuria Musculoskeletal: Denies back pain or joint pain Integument: Denies rash Neurologic: Denies headache, focal weakness or sensory changes Endocrine: Denies polyuria or polydipsia Lymphatic: Denies swollen glands Psychiatric: Denies depression or anxiety (LEELEE GLASS APRN) Current Medications: Current Meds: Current Medications Medications (Trade) Dose Ordered Sig/[facility] Start Time Stop Time Status Last Admin Dose Admin Morphine Sulfate (Morphine 4mg Syringe) 4 mg 1X ONCE 12/12/20 10:15 12/12/20 10:19 DC 12/12/20 10:33 4 MG Ondansetron HCl (Zofran) 4 mg 1X ONCE 12/12/20 10:15 12/12/20 10:19 DC 12/12/20 10:31 4 MG Sodium Chloride 1,000 ml @ 1,000 mls/hr 1X ONCE 12/12/20 10:15 12/12/20 11:14 DC 12/12/20 10:29 1,000 MLS/HR (LEELEE GLASS APRN) Allergies: Allergies: Allergies Coded Allergies Type Severity Reaction Last Updated Verified No Known Allergies Allergy Unknown 02/04/20 Yes (LEELEE GLASS SUPERVISOR TYPE PHOTOGRAPHY) Physical Exam: PE: Constitutional: Well developed, well nourished, no acute distress, non-toxic appearance. [] HENT: Normocephalic, atraumatic, bilateral external ears normal, oropharynx moist, no oral exudates, nose normal. [] Eyes: PERRLA, EOMI, conjunctiva normal, no discharge. [] Neck: Normal range of motion, no tenderness, supple, no stridor. [] Cardiovascular:Heart rate regular rhythm, no murmur [] Lungs & Thorax: Bilateral breath sounds clear to auscultation [] Abdomen: Bowel sounds normal, soft, generalized tenderness. Skin: Warm, dry, no erythema, no rash. [] Back: No tenderness, no CVA tenderness. [] Extremities: No tenderness, no cyanosis, no clubbing, ROM intact, no edema. [] Neurologic: Alert and oriented X 3, normal motor function, normal sensory function, no focal deficits noted. [] Psychologic: Affect normal, judgement normal, mood normal. [] (LEELEE GLASS SUPERVISOR TYPE PHOTOGRAPHY) Current Patient Data: Labs: Laboratory Tests Test 12/12/20 10:25 White Blood Count 12.1 x10^3/uL (4.0-11.0) H Red Blood Count 5.66 x10^6/uL (4.30-5.70) Hemoglobin 16.1 g/dL (13.0-17.5) Hematocrit 46.9 % (39.0-53.0) Mean Corpuscular Volume 83 fL (79-100) Mean Corpuscular Hemoglobin 28 pg (25-35) Mean Corpuscular Hemoglobin Concent 34 g/dL (31-37) Red Cell Distribution Width 18.6 % (11.5-14.5) H Platelet Count 309 x10^3/uL (140-400) Neutrophils (%) (Auto) 85 % (31-73) H Lymphocytes (%) (Auto) 10 % (24-48) L Monocytes (%) (Auto) 4 % (0-9) Eosinophils (%) (Auto) 1 % (0-3) Basophils (%) (Auto) 1 % (0-3) Neutrophils # (Auto) 10.2 x10^3uL (1.8-7.7) H Lymphocytes # (Auto) 1.2 x10^3/uL (1.0-4.8) Monocytes # (Auto) 0.5 x10^3/uL (0.0-1.1) Eosinophils # (Auto) 0.1 x10^3/uL (0.0-0.7) Basophils # (Auto) 0.1 x10^3/uL (0.0-0.2) Vital Signs: Vital Signs Date Time Temp Pulse Resp B/P (MAP) Pulse Ox O2 Delivery O2 Flow Rate FiO2 12/12/20 10:33 20 Room Air 12/12/20 10:00 98.2 77 142/92 98 (LEELEE GLASS APRN) EKG: EKG: [] (LEELEE GLASS APRN) Radiology/Procedures: Radiology/Procedures: []INDICATION: Reason: EPIGASTRIC PAIN, HX PANCREATITIS / Spl. Instructions: / History: . COMPARISON: October 30, 2020 TECHNIQUE: Axial CT images obtained through the abdomen and pelvis without contrast. One or more of the following individualized dose reduction techniques were utilized for this examination: 1. Automated exposure control; 2. Adjustment of the mA and/or kV according to patient size; 3. Use of iterative reconstruction technique. FINDINGS: Abdominal aorta is not aneurysmal. Calcific atherosclerosis is seen. Fat-containing left inguinal hernia. Pneumobilia is seen as well as stent within the common bile duct. Liver is prominent in size. Mixed density at the pancreatic head and uncinate process with calcifications as well as low-density region within. There is adjacent edema to the fat at the pancreas as well as the duodenum. Duodenal wall appears prominent in thickness as well. Pancreatic duct stent is no longer seen with portion of the pancreatic duct dilated up to about 4-5 mm. Spleen unremarkable. No hydronephrosis. Nodular thickening of the left adrenal gland. Urinary bladder is partially distended. Wall mildly prominent but could be from lack of distention. There is a drain seen within the right lower quadrant of the abdomen at the site of previously identified fluid and air collection. There is been interval decrease in the fluid and air collection with only a trace amount of fluid seen at this site with adjacent stranding to the fat. Repeat demonstration of inflammatory changes at the right lower quadrant of the abdomen. Appendix partially seen measuring approximately 6-7 mm IMPRESSION: * Repeat demonstration of pigtail catheter in the right lower quadrant the abdomen with the surrounding fluid and air collection decreased from prior with only a trace amount of fluid seen at this site. There is some persistent edema and adjacent fluid tracking superiorly and inferiorly but this is a mild finding. * Heterogenous appearance of the pancreatic head and uncinate process with calcifications within the area as well as areas of low density which could be secondary to acute on chronic pancreatitis. There is also wall thickening and edema of the adjacent duodenum which may be secondarily inflamed or secondary to duodenitis or duodenal ulcer. * There is a couple loops of small bowel the left-side of the abdomen with prominent wall which could be from contraction with enteritis not excluded. * Suspected appendix is borderline in size. Electronically signed by: Brandon Collier MD (12/12/2020 11:36 AM) DESKTOP- [id number] (LEELEE GLASS APRN) Heart Score: C/O Chest Pain: No Risk Factors: Risk Factors: DM, Current or recent (<one month) smoker, HTN, HLP, family history of CAD, obesity. Risk Scores: Score 0 - 3: 2.5% MACE over next 6 weeks - Discharge Home Score 4 - 6: 20.3% MACE over next 6 weeks - Admit for Clinical Observation Score 7 - 10: 72.7% MACE over next 6 weeks - Early Invasive Strategies (LEELEE GLASS APRN) Course & Med Decision Making: Course & Med Decision Making Pertinent Labs and Imaging studies reviewed. (See chart for details) [] 35-year-old male presents with generalized abdominal pain. Patient has had 4 thoracentesis to have fluid removed due to issues with his pancreas. Patient currently has a drain coming from his abdomen and has an appointment with a surgeon at 1500 today. Patient is reporting pain 8/[address] of abdomen and pelvis ordered to rule out any acute complications. Patient given morphine and Zofran for pain and nausea. All labs unremarkable. CT of abdomen pelvis negative for any acute abnormalities. Discussed results with patient. Explained to patient that he needs to follow-up with his surgeon at 3 PM today to discuss further management. Patient given copy of CT results to give to surgeon. Patient most likely is dealing with chronic abdominal pain that needs to be followed up with his PCP and GI doctor. Patient has Zofran and pain medication at home. Patient advised to return if he has worsening symptoms or concerns. Patient is hemodynamically stable upon disposition. (LEELEE GLASS APRN) Course & Med Decision Making I oversaw on the above date of service of this patient. This patient was evaluated, examined, treated, and dispositioned from the emergency department by the mid-level practitioner. Although I was working at the time , no assistance was requested. Electronically signed, Julianna Oliver DO (JULIANNA OLIVER DO) Maynor Disclaimer: Maynor Disclaimer: This electronic medical record was generated, in whole or in part, using a voice recognition dictation system. (LEELEE GLASS APRN) Departure Departure: Impression: Primary Impression: Abdominal pain Qualified Codes: R10.84 - Generalized abdominal pain Disposition: HOME / SELF CARE / HOMELESS Condition: STABLE Referrals: PCP,NO (PCP) Patient Instructions: Abdominal Pain Additional Instructions: You were seen in the emergency room for chronic abdominal pain. CT of your abdomen was negative for any acute abnormalities. All of your labs were unremarkable. Please keep your follow-up appointment at 3 PM today with your surgeon to discuss further pain management options. Return to the emergency room if you have worsening symptoms or concerns. EMERGENCY DEPARTMENT GENERAL DISCHARGE INSTRUCTIONS Thank you for coming to [facility] (ED) today and trusting us with you care. We trust that you had a positivie experience in our Emergency Department. If you wish to speak to the department management, you may call the director at [phone]. YOUR FOLLOW UP INSTRUCTIONS ARE FOLLOWS: 1. Do you have a private Doctor? If you do not have a private doctor, please ask for a resource list of physicians or clinics that may be able to assist you with follow up care. 2. The Emergency Physician has interpreted your x-rays. The X-Ray specialist will also review them. If there is a change in the findings, you will be notified in 48 hours when at all possible. 3. A lab test or culture has been done, your results will be reviewed and you will be notified if you need a change in treatment. ADDITIONAL INSTRUCTIONS AND INFORMATION: 1. Your care today has been supervised by a physician who is specially trained in emergency care. Many problems require more than one evaluation for a complete diagnosis and treatment. We recommend that you schedule your follow up appointment as recomm ended to ensure complete treatment of you illness or injury. If you are unable to obtain follow up care and continue to have a problem, or if your condition worsens, we recommend that you return to the ED. 2. We are not able to safely determine your condition over the phone nor are we able to give sound medical advice over the phone. For these safety reasons, if you call for medical advice we will ask you to come to the ED for further evaluation. 3. If you have any questions regarding these discharge instructions please call the ED at [phone]. SAFETY INFORMATION: In the interest of safety, wellness, and injury prevention; we encourage you to wear your sealbelt, if you smoke; quite smoking, and we encourage family to use a protective helmet for bicycling and other sporting events that present an increased risk for head injury. IF YOUR SYMPTOMS WORSEN OR NEW SYMPTOMS DEVELOP, OR YOU HAVE CONCERNS ABOUT YOUR CONDITION; OR IF YOUR CONDITION WORSENS WHILE YOU ARE WAITING FOR YOUR FOLLOW UP APPOINTMENT; EITHER CONTACT YOUR PRIMARY CARE DOCTOR, THE PHYSICIAN WHOSE NAME AND NUMBER YOU WERE GIVEN, OR RETURN TO THE ED IMMEDIATELY. LEELEE GLASS APRN Dec 12, 2020 11:46 JULIANNA OLIVER DO Dec 13, 2020 06:44
[2020-12-12 12:16] VITALS: BP 131/93
== END 2020-12-12 12:11 | disposition home or self-care (01) ==
LOC: ER 09:52
DX: R10.84 Generalized abdominal pain (principal); R11.2 Nausea with vomiting, unspecified; F41.9 Anxiety disorder, unspecified; F32.9 Major depressive disorder, single episode, unspecified; F17.210 Nicotine dependence, cigarettes, uncomplicated; F12.10 Cannabis abuse, uncomplicated
CPT/HCPCS: 36415; 74176; 80053; 83690; 85025; 96361; 96374; 96375; 99285; J2270; J2405; J7030

== ENCOUNTER 2020-12-20 15:10 | Emergency (ER) | payer MEDICAID ==
[~2020-12-20] VITALS: Ht 177.8 cm; Wt 64.8 kg
--- NOTE | 2020-12-20 15:21 | PHYS DOC ---
Past History Past Medical History: Alcoholism, Anxiety, Depression, Pancreatitis Additional Past Medical Histor: Colon Past Surgical History: Other Additional Past Surgical Histo: GI Smoking: Cigarettes Alcohol Use: Heavy Drug Use: Marijuana Adult General HPI HPI Patient is a 35-year-old male presenting for abdominal pain. This is an acute on chronic problem. He has known history of anxiety depression with ongoing alcohol abuse with gallstones and chronic pancreatitis. Reports he had recent complicated stay at [facility] for which he underwent several inpatient tests such as "4 ERCPs, a J-tube drain, and a colonoscopy". He is here stating he thinks he has pancreatitis again. Admits he drank 1.5 pints of alcohol today and is actively suicidal, he is not forthcoming with an actual plan. States his recently left him 2 weeks ago which is the source of his depression and thoughts of harming self. Patient states "I just want you to knock me out... Just give me 2 mg IV Dilaudid, that is what [facility] was giving me". Review of Systems Review of Systems Fourteen body systems of review of systems have been reviewed. See HPI for pertinent positives and negative responses, other mcqueen all other systems are negative, non-pertinent or non-contributory Allergies Allergies Allergies Coded Allergies Type Severity Reaction Last Updated Verified No Known Allergies Allergy Unknown 02/04/20 Yes Physical Exam Physical Exam Constitutional: Appears disheveled, poor hygiene, anxious and clearly intoxicated on arrival HENT: Normocephalic, atraumatic, bilateral external ears normal, oropharynx moist, no oral exudates, nose normal. Eyes: PERRLA, EOMI, conjunctiva normal, no discharge. Neck: Normal range of motion, no tenderness, supple, no stridor. Cardiovascular: Heart rate regular, sinus rhythm, no murmurs rubs or gallops Lungs & Thorax: Bilateral breath sounds clear to auscultation Abdomen: Bowel sounds normal, soft, epigastric tenderness with voluntary guarding, no rebound, no masses, no pulsatile masses. Nonsurgical abdomen, no peritoneal signs Skin: Warm, dry, no erythema, no rash. Back: No tenderness, no CVA tenderness. Extremities: No tenderness, no cyanosis, no clubbing, ROM intact, no edema. Neurologic: Alert and oriented X 3, grossly normal motor & sensory function, no focal deficits noted. Psychologic: Tearful affect, depressed mood Current Patient Data Vital Signs Vital Signs Date Time Temp Pulse Resp B/P (MAP) Pulse Ox O2 Delivery O2 Flow Rate FiO2 12/20/20 15:15 97.9 105 18 120/78 96 Room Air Vital Signs Date Time Temp Pulse Resp B/P (MAP) Pulse Ox O2 Delivery O2 Flow Rate FiO2 12/20/20 18:32 12 12/20/20 18:03 95.7 96 109/84 (92) 98 Room Air Lab Results Current Medications Medications (Trade) Dose Ordered Sig/[facility] Route PRN Reason Start Time Stop Time Status Last Admin Dose Admin Sodium Chloride 1,000 ml @ 1,000 mls/hr 1X ONCE IV 12/20/20 15:30 12/20/20 16:29 DC 12/20/20 15:36 Fentanyl Citrate (Fentanyl 2ml Vial) 75 mcg 1X ONCE IVP 12/20/20 15:30 12/20/20 15:31 DC 12/20/20 15:36 Iohexol (Omnipaque 300 Mg/ml) 75 ml 1X ONCE IV 12/20/20 15:30 12/20/20 15:31 DC 12/20/20 15:39 Info (Do NOT chart on this entry -- for MONITORING) 1 each PRN DAILY PRN MC SEE COMMENTS 12/20/20 15:30 12/20/20 23:57 DC Hydromorphone HCl (Dilaudid) 0.5 mg 1X ONCE IVP 12/20/20 16:30 12/20/20 16:39 DC 12/20/20 16:30 Hydromorphone HCl (Dilaudid) 0.5 mg 1X ONCE IVP 12/20/20 17:15 12/20/20 17:28 DC 12/20/20 17:16 Hydromorphone HCl (Dilaudid) 0.5 mg 1X ONCE IVP 12/20/20 18:30 12/20/20 18:31 DC 12/20/20 18:32 EKG EKG EKG ordered and interpreted by myself at 1600 hours as sinus rhythm 100 bpm, unremarkable intervals besides prolonged QTC at 473, no axis deviation, no acute ischemic findings, no STEMI Radiology/Procedures Radiology/Procedures EXAM: Chest, single view. HISTORY: Epigastric pain. COMPARISON: 02/03/2020 FINDINGS: A frontal view of the chest is obtained. There is no infiltrate, pleural effusion or pneumothorax. The heart is normal in size. IMPRESSION: No acute pulmonary finding. Electronically signed by: Natalie Villanueva MD (12/20/2020 3:54 PM) [id number] ////////////////////// EXAMINATION: CT abdomen and pelvis with IV contrast. INDICATION:35 years, Male, abdominal pain, history of pancreatitis epigastric pain. TECHNIQUE: Axial CT images of the abdomen and pelvis were obtained. Coronal and sagittal reformatted performed. COMPARISON: 12/12/2020 and multiple priors. Exposure: One or more of the following individualized dose reduction techniques were utilized for this examination: 1. Automated exposure control 2. Adjustment of the mA and/or kV according to patient size 3. Use of iterative reconstruction technique. FINDINGS: LOWER CHEST: Unremarkable ABDOMEN/PELVIS: Redemonstratedsequelae of chronic pancreatitis with enlarged heterogeneous pancreatic head and uncinate process and coarse calcifications. There is minimal fat stranding adjacent to the pancreatic head and along the anterior pararenal space. No main pancreatic ductal dilatation. Redemonstrated mild reactive wall thickening of the proximal duodenum. Interval decreasing size of rim-enhancing cystic structure at the pancreaticoduodenal groove/within the duodenal wall measures 1.6 x 1.4 cm, previously measures 2.0 x 1.6 cm. Interval removal of the right retroperitoneal drainage catheter with residual soft tissue thickening/scarring along the right anterior pararenal space. New subcentimeter cystic structures seen within the pancreatic head, for example example series 3 image 28 measures 0.7 cm. [address] stent in place with minimal intrahepatic pneumobilia. No biliary ductal dilation. Liver, spleen, gallbladder, adrenals and kidneys are unremarkable. Distal esophageal wall thickening, may relate to reflux esophagitis. No bowel dilatation. Appendix is normal. No pneumoperitoneum or ascites. Normal caliber abdominal aorta. Mesenteric arteries and portal vein are patent. Unremarkable urinary bladder and prostate. MUSCULOSKELETAL: No acute osseous process. IMPRESSION: 1. Sequelae of chronic pancreatitis with essentially unchanged minimal fat stranding adjacent to the pancreatic head and along the right anterior pararenal space which may reflect acute process. Consider correlation with lipase level. 2. Interval decreasing size of the rim-enhancing cystic structure at the pancreaticoduodenal groove/within the duodenal wall. New subcentimeter cystic structures within the pancreatic head. Findings likely representing developing pseudocysts. 3. CBD stent in place with minimal intrahepatic pneumobilia. No significant biliary ductal dilation. 4. Distal esophageal wall thickening, may relate to reflux esophagitis. Electronically signed by: Jany Villegas MD (12/20/2020 4:11 PM) [facility] Heart Score C/O Chest Pain: No Risk Factors: Risk Factors: DM, Current or recent (<one month) smoker, HTN, HLP, family history of CAD, obesity. Risk Scores: Risk Factors: DM, Current or recent (<one month) smoker, HTN, HLP, family history of CAD, obesity. Course & Med Decision Making Course & Med Decision Making Vitals stable. HPI and physical examination nonconcerning for any emergent or surgical issues. Patient acutely intoxicated on arrival citing SI Comprehensive ER work-up performed confirming acute alcohol intoxication likely exacerbating his chronic pancreatitis. This improved with IV fluids and pain medication Patient evaluated by qualified mental health professional who reviewed any appropriate supporting documentation and previous available medical records and feels patient does not meet criteria for admission to a mental health facility. Please refer to qualified mental health professional's documentation for details regarding this decision. Will discharge patient with appropriate mental health resources and follow up. Dragon Disclaimer Dragon Disclaimer This electronic medical record was generated, in whole or in part, using a voice recognition dictation system. Departure Departure: Impression: Primary Impression: Abdominal pain Additional Impressions: Pancreatic disease Alcohol abuse Suicidal behavior Disposition: HOME / SELF CARE / HOMELESS Condition: STABLE Referrals: PCP,NO (PCP) Additional Instructions: You have been evaluated in the Emergency Department today for abdominal pain. Your evaluation was not suggestive of any emergent condition requiring medical intervention at this time. However, some abdominal problems make take more time to appear. Therefore, it is important for you to watch for any new symptoms or worsening of your current condition. As discussed, please adhere to safety plan discussed prior to your departure and present guidance Center in the morning Return to the Emergency Department if you experience worsening pain, persistent fevers greater than 100.4, recurrent vomiting, blood in vomit, blood in stool, dark tarry stool, chest pain, difficulty breathing, or any other concerning symptoms. Problem Qualifiers JULIANNA OLIVER DO Dec 20, 2020 15:21
[2020-12-20] MEDS ORDERED: IV NORMAL SALINE 1,000ML 1,000 ML IV ONE (15:30)
[2020-12-20] MEDS ORDERED: CONTRAST GIVEN. MC PRN (15:30)
[2020-12-20] MEDS ORDERED: IOHEXOL 300 MG/ML 75 ML VIAL. IV ONE (15:30)
--- NOTE | 2020-12-20 15:56 | RAD ---
EXAM: Chest, single view. HISTORY: Epigastric pain. COMPARISON: 02/03/2020 FINDINGS: A frontal view of the chest is obtained. There is no infiltrate, pleural effusion or pneumo thorax. The heart is normal in size. IMPRESSION: No acute pulmonary finding. Electronically signed by: Natalie Villanueva MD (12/20/2020 3:54 PM) [id number]
[2020-12-20 15:58] LABS: BASO # 0.1 x10^3/uL (0.0-0.2); BASO % 1 % (0-3); EOS # 0.2 x10^3/uL (0.0-0.7); EOS % 2 % (0-3); HEMOGLOBIN 15.2 g/dL (13.0-17.5); LYMPH # 2.2 x10^3/uL (1.0-4.8); LYMPH % 21 % (24-48); MEAN CORPUSCULAR HEMOGLOBIN 29 pg (25-35); MEAN CORPUSCULAR HGB CONC 34 g/dL (31-37); MEAN CORPUSCULAR VOLUME 86 fL (79-100); MONO # 0.5 x10^3/uL (0.0-1.1); MONO % 5 % (0-9); NEUT # 7.7 x10^3uL (1.8-7.7); NEUT % 72 % (31-73); PLATELET COUNT 275 x10^3/uL (140-400); RED CELL DISTRIBUTION WIDTH 19.2 % (11.5-14.5); WHITE BLOOD COUNT 10.7 x10^3/uL (4.0-11.0)
--- NOTE | 2020-12-20 16:13 | EKG ---
[address] [address] Test Date: 2020-12-20 Test Time: 15:50:19 Pat Name: MICHELLE VILLEDA Department: Room: Gender: M Survey Superintendent: TOMÁS : 1985 Requested By: JULIANNA OLIVER Order Number: [id number] Reading MD: Measurements Intervals [place] Rate: 100 P: 19 KS: 134 QRS: 72 QRSD: 100 T: 64 QT: 364 QTc: 473 Interpretive Statements SINUS RHYTHM PROLONGED QT NO SPECIFIC ECG ABNORMALITIES RI6.02 No previous ECG available for comparison
--- NOTE | 2020-12-20 16:14 | RAD ---
EXAMINATION: CT abdomen and pelvis with IV contrast. INDICATION:35 years, Male, abdominal pain, history of pancreatitis epigastric pain. TECHNIQUE: Axial CT images of the abdomen and pelvis were obtained. Coronal and sagittal reformatted performed. COMPARISON: 12/12/2020 and multiple priors. Exposure: One or more of the following individualized dose reduction techniques were utilized for thi s examination: 1. Automated exposure control 2. Adjustment of the mA and/or kV according to patient size 3. Use of iterative reconstruction technique. FINDINGS: LOWER CHEST: Unremarkable ABDOMEN/PELVIS: Redemonstratedsequelae of chronic pancreatitis with enlarged heterogeneous pancreatic head and uncina te process and coarse calcifications. There is minimal fat stranding adjacent to the pancreatic head and along the anterior pararenal space. No main pancreatic ductal dilatation. Redemonstrated mild reactive wall thickening of the proximal duodenum. Interval decreasing size of ri m-enhancing cystic structure at the pancreaticoduodenal groove/within the duodenal wall measures 1.6 x 1.4 cm, previously measures 2.0 x 1.6 cm. Interval removal of the right retroperitoneal drainage ca theter with residual soft tissue thickening/scarring along the right anterior pararenal space. New [place] bcentimeter cystic structures seen within the pancreatic head, for example example series 3 image 28 measures 0.7 cm[address] stent in place with minimal intrahepatic pneumobilia. No biliary ductal dilation . Liver, spleen, gallbladder, adrenals and kidneys are unremarkable. Distal esophageal wall thickening, may relate to reflux esophagitis. No bowel dilatation. Appendix is normal. No pneumoperitoneum or as cites. Normal caliber abdominal aorta. Mesenteric arteries and portal vein are patent. Unremarkable u rinary bladder and prostate. MUSCULOSKELETAL: No acute osseous process. IMPRESSION: 1. Sequelae of chronic pancreatitis with essentially unchanged minimal fat stranding adjacent to the pancreatic head and along the right anterior pararenal space which may reflect acute process. Consid er correlation with lipase level. 2. Interval decreasing size of the rim-enhancing cystic structure at the pancreaticoduodenal groove/ within the duodenal wall. New subcentimeter cystic structures within the pancreatic head. Findings li sandra representing developing pseudocysts. 3. CBD stent in place with minimal intrahepatic pneumobilia. No significant biliary ductal dilation. 4. Distal esophageal wall thickening, may relate to reflux esophagitis. Electronically signed by: Jany Villegas MD (12/20/2020 4:11 PM) [facility] HOSPITALSrikanth
[2020-12-20 16:15] LABS: CALCIUM 8.8 mg/dL (8.5-10.1); CREATININE 0.5 mg/dL (0.7-1.3); GFR 189.2; POTASSIUM 3.7 mmol/L (3.5-5.1)
[2020-12-20 16:19] LABS: ALBUMIN 3.5 g/dL (3.4-5.0); ALBUMIN/GLOBULIN RATIO 1.1 (1.0-1.7); TOTAL BILIRUBIN 0.1 mg/dL (0.2-1.0); TOTAL PROTEIN 6.8 g/dL (6.4-8.2)
[2020-12-20] MEDS ORDERED: HYDROmorphone PF 1 MG/ML DISP.SYRIN IVP ONE ×3 (16:30→18:30)
[2020-12-20 16:32] LABS: ETHANOL 326 mg/dL (0-10); SALIC < 2.8 mg/dL (2.8-20.0)
[2020-12-20 16:33] LABS: ACETAMIN < 2 mcg/mL (10-30)
[2020-12-20 16:41] LABS: BARBITURATES NEG (NEG); BENZODIAZEPINES NEG (NEG); CANNABINOIDS POS (NEG); COCAINE NEG (NEG); METHADONE NEG (NEG); OPIATES NEG (NEG); PHENCYCLIDINE NEG (NEG)
[2020-12-20 16:51] LABS: AMPHETAMINE/METHAMPHETAMINE NEG (NEG)
[2020-12-20 16:55] LABS: BILIRUBIN,URINE NEG (NEG); CLARITY,URINE CLEAR; COLOR,URINE YELLOW; GLUCOSE,URINE NEG (NEG)
[2020-12-20 16:56] LABS: BACTERIA,URINE 0 /HPF (0-FEW); NITRITE,URINE NEG (NEG); RBC,URINE 0 /HPF (0-2); UROBILINOGEN,URINE 0.2 mg/dL (0.2 mg/dL); WBC,URINE 0 /HPF (0-4)
[2020-12-20 18:03] VITALS: BP 109/84
[2020-12-20 19:53] LABS: % EOS 2 % (0-5); % LYMPHS 22 % (24-48); % MONOS 3 % (0-10); % SEGS 73 % (35-66)
[2020-12-20 19:54] LABS: PLT ESTIMATE ADEQUATE (ADEQUATE)
== END 2020-12-20 18:37 | disposition home or self-care (01) ==
LOC: ER 15:10
DX: R10.13 Epigastric pain (principal); R45.851 Suicidal ideations; F10.20 Alcohol dependence, uncomplicated; K86.89 Other specified diseases of pancreas; F17.210 Nicotine dependence, cigarettes, uncomplicated; Z20.822 Contact with and (suspected) exposure to COVID-19; Y90.8 Blood alcohol level of 240 mg/100 ml or more
CPT/HCPCS: 71045; 74177; 80053; 80307; 80329; 81001; 83690; 84484; 85007; 85025; 87426; 93005; 96361; 96374; 96375; 96376; 99285; C9803; G0480; J1170; J3010; J7030; Q9967; U0003

== ENCOUNTER 2020-12-21 12:31 | Emergency (ER) | payer MEDICAID ==
[~2020-12-21] VITALS: Ht 177.8 cm; Wt 67.8 kg
[2020-12-21] MEDS ORDERED: KETOROLAC 15 MG/ML VIAL. IVP ONE (13:00)
[2020-12-21] MEDS ORDERED: FAMOTIDINE 20 MG/2 ML VIAL IVP ONE (13:00)
[2020-12-21] MEDS ORDERED: MVI, ADULT NO.4 WITH VIT K 10 ML, FOLIC ACID INJ 1 MG, THIAMINE INJ 100 MG in IV NORMAL... IV ONE ×2 (13:00→19:45)
[2020-12-21] MEDS ORDERED: diphenhydrAMINE 50 MG/ML VIAL IVP ONE (13:00)
[2020-12-21] MEDS ORDERED: IV NORMAL SALINE 1,000ML 1,000 ML IV ONE ×2 (13:00→22:30)
[2020-12-21] MEDS ORDERED: METOCLOPRAMIDE HCL 10 MG/2 ML VIAL. IVP ONE (13:00)
[2020-12-21 13:07] LABS: BASO # 0.1 x10^3/uL (0.0-0.2); BASO % 1 % (0-3); EOS # 0.3 x10^3/uL (0.0-0.7); EOS % 4 % (0-3); HEMATOCRIT 46.3 % (39.0-53.0); HEMOGLOBIN 15.6 g/dL (13.0-17.5); LYMPH % 38 % (24-48); MEAN CORPUSCULAR HEMOGLOBIN 29 pg (25-35); MEAN CORPUSCULAR HGB CONC 34 g/dL (31-37); MEAN CORPUSCULAR VOLUME 86 fL (79-100); MONO # 0.5 x10^3/uL (0.0-1.1); MONO % 7 % (0-9); NEUT # 3.9 x10^3uL (1.8-7.7); NEUT % 50 % (31-73); PLATELET COUNT 297 x10^3/uL (140-400); RED BLOOD COUNT 5.37 x10^6/uL (4.30-5.70); RED CELL DISTRIBUTION WIDTH 19.6 % (11.5-14.5); WHITE BLOOD COUNT 7.8 x10^3/uL (4.0-11.0)
[2020-12-21 13:09] LABS: CALCIUM 8.3 mg/dL (8.5-10.1); CREATININE 0.5 mg/dL (0.7-1.3); GFR 189.2; POTASSIUM 4.2 mmol/L (3.5-5.1)
[2020-12-21 13:15] LABS: ALBUMIN 3.4 g/dL (3.4-5.0); MAGNESIUM 2.4 mg/dL (1.8-2.4); TOTAL BILIRUBIN 0.1 mg/dL (0.2-1.0); TOTAL PROTEIN 6.9 g/dL (6.4-8.2)
[2020-12-21 13:17] LABS: ETHANOL 441 mg/dL (0-10)
[2020-12-21 13:18] LABS: ACETAMIN < 2.0 mcg/mL (10-30)
[2020-12-21 13:20] LABS: BARBITURATES NEG (NEG); BENZODIAZEPINES NEG (NEG); CANNABINOIDS POS (NEG); COCAINE NEG (NEG); METHADONE NEG (NEG); OPIATES NEG (NEG); PHENCYCLIDINE NEG (NEG)
[2020-12-21 13:22] LABS: AMPHETAMINE/METHAMPHETAMINE NEG (NEG)
[2020-12-21 13:26] LABS: BILIRUBIN,URINE NEG (NEG); CLARITY,URINE CLEAR; COLOR,URINE YELLOW; GLUCOSE,URINE NEG (NEG); NITRITE,URINE NEG (NEG); UROBILINOGEN,URINE 0.2 mg/dL (0.2 mg/dL)
[2020-12-21] MEDS ORDERED: ZIPRASIDONE IM 20 MG VIAL. IM ONE ×2 (13:30→18:30)
[2020-12-21 13:41] LABS: BACTERIA,URINE 0 /HPF (0-FEW); RBC,URINE 0 /HPF (0-2); SQUAMOUS EPITHELIAL CELL,UR FEW /LPF; WBC,URINE OCC /HPF (0-4)
[2020-12-21] MEDS ORDERED: TOTAL PARENTERAL NUTRITION 656.4987 ML, AMINO ACID 15% 80 GM, DEXTROSE 50% WATER 500 ML... IV SCH (22:00)
--- NOTE | 2020-12-22 05:23 | PHYS DOC ---
Past History Past Medical History: Alcoholism, Anxiety, Depression, Pancreatitis Additional Past Medical Histor: chronic pancreatitis Past Medical History Limited secondary to ETOH intoxication (CLAIR MERIDA DO) Past Surgical History: Other Additional Past Surgical Histo: ERCP, Past Surgical History Limited secondary to ETOH intoxication (CLAIR MERIDA DO) Smoking: Cigarettes Alcohol Use: Heavy Drug Use: Marijuana Social History Limited secondary to ETOH intoxication (CLAIR MERIDA DO) General Adult EDM: Chief Complaint: SUICIDAL IDEATION HPI: HPI: 35-year-old male with past medical history of chronic alcoholism and chronic pancreatitis presents via EMS with report of suicidal ideation. Patient reports the pain has become so severe that he just cannot deal with it anymore. Patient reports he did not "drink enough "alcohol before coming into the hospital here today. Patient was seen yesterday for same. Patient was deemed safe for discharge. Patient did cut his left upper arm but was done prior to yesterday. Steri-Strips were previously in place over the cut. Patient appears intoxicated. Patient reports associated nausea and vomiting and reports pain is similar to his chronic pancreatitis. Denies fever or chills. History of present illness limited secondary to alcohol intoxication. (CLAIR MERIDA DO) Review of Systems: Review of Systems: Constitutional: Denies fever or chills GI: Reports abdominal pain, nausea, and vomiting Psychiatric: Reports suicidal ideation Review of systems limited secondary to alcohol intoxication. (CLAIR MERIDA DO) Current Medications: Current Meds: Current Medications Medications (Trade) Dose Ordered Sig/Netta Start Time Stop Time Status Last Admin Dose Admin Diphenhydramine HCl (Benadryl) 25 mg 1X ONCE 12/21/20 13:00 12/21/20 13:16 DC Famotidine (Pepcid Vial) 20 mg 1X ONCE 12/21/20 13:00 12/21/20 13:12 DC 12/21/20 13:21 20 MG Ketorolac Tromethamine (Toradol 15mg Vial) 15 mg 1X ONCE 12/21/20 13:00 12/21/20 13:12 DC 12/21/20 13:21 15 MG Lorazepam (Ativan Inj) 2 mg 1X ONCE 12/21/20 19:00 12/21/20 19:03 DC 12/21/20 19:11 2 MG Metoclopramide HCl (Reglan Vial) 10 mg 1X ONCE 12/21/20 13:00 12/21/20 13:12 DC 12/21/20 13:21 10 MG Multivitamins/ Minerals 10 ml/ Folic Acid 1 mg/ Thiamine HCl 100 mg/Sodium Chloride 1,011.3 ml @ 1,000.187 mls/hr 1X ONCE 12/21/20 19:45 12/21/20 20:45 DC 12/21/20 19:29 1,000.187 MLS/HR Sodium Chloride 1,000 ml @ 1,000 mls/hr 1X ONCE 12/21/20 22:30 12/21/20 23:29 DC 12/21/20 22:20 1,000 MLS/HR Sodium Chloride 90 meq/Potassium Chloride 60 meq/ Potassium Phosphate 13.6 mmol/Magnesium Sulfate 10 meq/ Calcium Gluconate 10 meq/ Multivitamins/ Minerals 10 ml/ Zinc/Copper/ Manganese/ Selenium 1 ml/ Total Parenteral Nutrition/Amino Acids/Dextrose/ Fat Emulsion Intravenous 1,512 ml @ 63 mls/hr TPN CONT 12/21/20 22:00 12/21/20 19:38 DC Ziprasidone (Geodon Im) 20 mg 1X ONCE 12/21/20 18:30 12/21/20 18:43 DC 12/21/20 20:25 20 MG (CLAIR MERIDA DO) Allergies: Allergies: Allergies Coded Allergies Type Severity Reaction Last Updated Verified No Known Allergies Allergy Unknown 02/04/20 Yes (CLAIR MERIDA DO) Physical Exam: PE: Constitutional: Well developed, well nourished, no acute distress, non-toxic appearance HENT: Normocephalic, atraumatic Eyes: PERRL, EOMI, conjunctiva injected bilaterally, no discharge, horizontal nystagmus noted Neck: Normal range of motion, no tenderness, supple Lungs & Thorax: No respiratory distress, equal chest rise and fall Abdomen: Soft, diffuse tenderness Skin: Warm, dry, no erythema, no rash Back: No tenderness, no CVA tenderness Extremities: No tenderness, ROM intact, no edema Neurologic: Alert and oriented X 3, inebriated, no focal deficits noted Psychologic: Affect flat, judgment abnormal, reports suicidal ideation (CLAIR MERIDA DO) Current Patient Data: Labs: Laboratory Tests Test 12/21/20 12:45 12/21/20 12:57 12/21/20 13:40 12/21/20 18:47 White Blood Count 7.8 x10^3/uL (4.0-11.0) Red Blood Count 5.37 x10^6/uL (4.30-5.70) Hemoglobin 15.6 g/dL (13.0-17.5) Hematocrit 46.3 % (39.0-53.0) Mean Corpuscular Volume 86 fL (79-100) Mean Corpuscular Hemoglobin 29 pg (25-35) Mean Corpuscular Hemoglobin Concent 34 g/dL (31-37) Red Cell Distribution Width 19.6 % (11.5-14.5) H Platelet Count 297 x10^3/uL (140-400) Neutrophils (%) (Auto) 50 % (31-73) Lymphocytes (%) (Auto) 38 % (24-48) Monocytes (%) (Auto) 7 % (0-9) Eosinophils (%) (Auto) 4 % (0-3) H Basophils (%) (Auto) 1 % (0-3) Neutrophils # (Auto) 3.9 x10^3uL (1.8-7.7) Lymphocytes # (Auto) 3.0 x10^3/uL (1.0-4.8) Monocytes # (Auto) 0.5 x10^3/uL (0.0-1.1) Eosinophils # (Auto) 0.3 x10^3/uL (0.0-0.7) Basophils # (Auto) 0.1 x10^3/uL (0.0-0.2) Sodium Level 144 mmol/L (136-145) Potassium Level 4.2 mmol/L (3.5-5.1) Chloride Level 105 mmol/L (98-107) Carbon Dioxide Level 27 mmol/L (21-32) Anion Gap 12 (6-14) Blood Urea Nitrogen 4 mg/dL (8-26) L Creatinine 0.5 mg/dL (0.7-1.3) L Estimated GFR (Cockcroft-Gault) 189.2 BUN/Creatinine Ratio 8 (6-20) Glucose Level 128 mg/dL (70-99) H Calcium Level 8.3 mg/dL (8.5-10.1) L Magnesium Level 2.4 mg/dL (1.8-2.4) Total Bilirubin 0.1 mg/dL (0.2-1.0) L Aspartate Amino Transferase (AST) 23 U/L (15-37) Alanine Aminotransferase (ALT) 27 U/L (16-63) Alkaline Phosphatase 112 U/L (46-116) Total Protein 6.9 g/dL (6.4-8.2) Albumin 3.4 g/dL (3.4-5.0) Albumin/Globulin Ratio 1.0 (1.0-1.7) Lipase 445 U/L (73-393) H Salicylates Level 3.0 mg/dL (2.8-20.0) Salicylate Last Dose Date Unknown Salicylate Last Dose Time Unknown Acetaminophen Level < 2.0 mcg/mL (10-30) L Acetaminophen Last Dose Date Unknown Acetaminophen Last Dose Time Unknown Ethyl Alcohol Level 441 mg/dL (0-10) *H 288 mg/dL (0-10) H Urine Collection Type Unknown Urine Color Yellow Urine Clarity Clear Urine pH 7.5 Urine Specific [place] 1.010 Urine Protein Neg (NEG-TRACE) Urine Glucose (UA) Neg mg/dL (NEG) Urine Ketones (Stick) Neg mg/dL (NEG) Urine Blood Neg (NEG) Urine Nitrite Neg (NEG) Urine Bilirubin Neg (NEG) Urine Urobilinogen Dipstick 0.2 mg/dL (0.2 mg/dL) Urine Leukocyte Esterase Neg (NEG) Urine RBC 0 /HPF (0-2) Urine WBC Occ /HPF (0-4) Urine Squamous Epithelial Cells Few /LPF Urine Bacteria 0 /HPF (0-FEW) Urine Opiates Screen Neg (NEG) Urine Methadone Screen Neg (NEG) Urine Barbiturates Neg (NEG) Urine Phencyclidine Screen Neg (NEG) Urine Amphetamine/Methamphetamine Neg (NEG) Urine Benzodiazepines Screen Neg (NEG) Urine Cocaine Screen Neg (NEG) Urine Cannabinoids Screen Pos (NEG) Urine Ethyl Alcohol Pos (NEG) SARS-CoV-2 Antigen (Rapid) Negative (NEGATIVE) Vital Signs: Vital Signs Date Time Temp Pulse Resp B/P (MAP) Pulse Ox O2 Delivery O2 Flow Rate FiO2 12/22/20 04:13 100 8 110/65 (80) 95 Room Air 12/21/20 12:51 98.1 (CLAIR MERIDA DO) EKG: EKG: [] (CLAIR MERIDA DO) Radiology/Procedures: Radiology/Procedures: [] (CLAIR MERIDA DO) Heart Score: C/O Chest Pain: N/A (CLAIR MERIDA DO) Course & Med Decision Making: Course & Med Decision Making Pertinent Lab studies reviewed. (See chart for details) Patient with chronic pancreatitis and chronic alcoholism presents with report of suicidal ideation. Patient appears acutely intoxicated upon arrival. Patient had been seen for similar yesterday. Labs obtained and posted to chart. Patient's alcohol greater than 400. Banana bag initiated. Patient subsequently became agitated and ripped out his IV. Patient required IM Geodon and Ativan for agitation. Patient subsequently more sober and allowed IV access. Banana bag continued. Patient had been assessed by psychiatric assessment team and deemed to require inpatient treatment/detox. Awaiting acceptance to inpatient psychiatric/detox facility. [id number]-sign out given to Dr. Oliver for further evaluation and final disposition. (CLAIR MERIDA DO) Course & Med Decision Making I assumed care of patient at the start of my shift. I took care of patient approximately 24 to 48 hours ago for similar presenting symptoms, known alcoholic drink too much exacerbating his chronic pancreatitis and voicing SI Patient evaluated by qualified mental health professional who reviewed any appropriate supporting documentation and previous available medical records and feels patient does not meet criteria for admission to a mental health facility. I agree with this determination Please refer to qualified mental health professional's documentation for details regarding this decision. Will discharge patient with appropriate mental health resources and follow up. (JULIANNA OLIVER DO) Dragon Disclaimer: Dragon Disclaimer: This electronic medical record was generated, in whole or in part, using a voice recognition dictation system. (CLAIR MERIDA DO) Departure Departure: Impression: Primary Impression: Suicidal ideation Additional Impressions: Deliberate self-cutting Chronic pancreatitis Qualified Codes: K86.0 - Alcohol-induced chronic pancreatitis Alcohol abuse Disposition: HOME / SELF CARE / HOMELESS Condition: STABLE Referrals: PCP,NO (PCP) Additional Instructions: You have been evaluated in the Emergency Department today for abdominal pain. Your evaluation was not suggestive of any emergent condition requiring medical intervention at this time. However, some abdominal problems make take more time to appear. Therefore, it is important for you to watch for any new symptoms or worsening of your current condition. You need to report to the [facility] for evaluation and continued care as detailed in your safety plan given to you on ER departure Return to the Emergency Department if you experience worsening pain, persistent fevers greater than 100.4, recurrent vomiting, blood in vomit, blood in stool, dark tarry stool, chest pain, difficulty breathing, or any other concerning symptoms. CLAIR MERIDA DO Dec 22, 2020 05:23 JULIANNA OLIVER DO Dec 22, 2020 09:54
[2020-12-22] MEDS ORDERED: KETOROLAC 15 MG/ML VIAL. IVP ONE (08:30)
[2020-12-22 10:02] VITALS: BP 118/81
== END 2020-12-22 10:08 | disposition home or self-care (01) ==
LOC: ER 12:31 → EEVIPCON 12:31 → ER 12-22 10:08
DX: S41.112A Laceration without foreign body of left upper arm, initial encounter (principal); R45.851 Suicidal ideations; K86.0 Alcohol-induced chronic pancreatitis; F10.20 Alcohol dependence, uncomplicated; Z20.822 Contact with and (suspected) exposure to COVID-19; Y90.8 Blood alcohol level of 240 mg/100 ml or more; X78.8XXA Intentional self-harm by other sharp object, initial encounter; Y93.89 Activity, other specified; Y92.89 Other specified places as the place of occurrence of the external cause; Y99.8 Other external cause status
CPT/HCPCS: 36415; 80053; 80307; 80329; 81001; 83690; 83735; 85025; 87426; 96361; 96365; 96366; 96372; 96375; 96376; 99285; C9803; G0480; J1885; J2060; J2765; J3486; J3490; J7030; U0003; J0610; J3475; J3480

== ENCOUNTER 2021-01-07 23:42 | Emergency (ER) | payer MEDICAID ==
[~2021-01-07] VITALS: Ht 177.8 cm; Wt 67.8 kg
[2021-01-07 23:42] VITALS: BP 121/70
--- NOTE | 2021-01-07 23:44 | PHYS DOC ---
Past History Past Medical History: Alcoholism, Anxiety, Depression, Pancreatitis Additional Past Medical Histor: chronic pancreatitis Past Surgical History: Other Additional Past Surgical Histo: ERCP, Smoking: Cigarettes Alcohol Use: Heavy Drug Use: Marijuana General Adult HPI: HPI: ".. I ve been drinking.. and I have anxiety... can I have something for my anxiety.. It worse since I was arrested...I have a psychiatrist and a counselor...'" Patient is a 35 year old male who presents with above hx of intoxication. Pt. medical complaints started after he was arrested. Pt. reports recent admit at [facility] for anxiety. Patient reports history of chronic pain. Patient does admit to alcohol use tonight but states he is not that drunk. Patient offered Ativan for his anxiety.. Patient refused meds. Demanding to be discharged. Patient discharged from the ED. Patient left in police custody. Review of Systems: Review of Systems: Constitutional: Denies fever or chills Eyes: Denies change in visual acuity HENT: Denies nasal congestion or sore throat Respiratory: Denies cough or shortness of breath Cardiovascular: Denies chest pain or edema GI: Denies abdominal pain, nausea, vomiting, bloody stools or diarrhea : Denies dysuria Musculoskeletal: Denies back pain or joint pain Integument: Denies rash Neurologic: Denies headache, focal weakness or sensory changes Endocrine: Denies polyuria or polydipsia Lymphatic: Denies swollen glands Psychiatric: Complains of anxiety Family History: Family History: Patient refused family history Current Medications: Current Meds: Patient refused information on meds Allergies: Allergies: Allergies Coded Allergies Type Severity Reaction Last Updated Verified No Known Allergies Allergy Unknown 02/04/20 Yes Physical Exam: PE: Constitutional: In acute emotional distress, intoxicated inappearance. [] Smell of alcoholic beverages. HENT: Normocephalic, atraumatic, bilateral external ears normal, oropharynx moist, no oral exudates, nose normal. [] Eyes: PERRLA, EOMI, conjunctiva normal, no discharge. [] Neck: Normal range of motion, no tenderness, supple, no stridor. [] Cardiovascular: Tachycardia heart rate regular rhythm, no murmur [] Lungs & Thorax: Bilateral breath sounds equal apex with scattered wheezes auscultation [] Abdomen: Bowel sounds normal, soft, no tenderness, no masses, no pulsatile masses. [] Skin: Warm, dry, no erythema, no rash. [Tattoos. Self-induced scratches. Back: No tenderness, no CVA tenderness. [] Extremities: No tenderness, no cyanosis, no clubbing, ROM intact, no edema. [] Neurologic: Alert and oriented X 3, moves all extremities on request, has distal sensory,, no focal deficits noted. [] Slightly wide gait. Psychologic: Affect is calm judgement normal, mood normal. [] Does appear to be intoxicated. Current Patient Data: Labs: Patient refused labs EKG: EKG: Patient refused [] Radiology/Procedures: Radiology/Procedures: Patient refused [] Heart Score: C/O Chest Pain: N/A Risk Factors: Risk Factors: DM, Current or recent (<one month) smoker, HTN, HLP, family history of CAD, obesity. Risk Scores: Score 0 - 3: 2.5% MACE over next 6 weeks - Discharge Home Score 4 - 6: 20.3% MACE over next 6 weeks - Admit for Clinical Observation Score 7 - 10: 72.7% MACE over next 6 weeks - Early Invasive Strategies Course & Med Decision Making: Course & Med Decision Making Pertinent Labs and Imaging studies reviewed. (See chart for details) Patient to get follow-up with primary care. Patient keep follow-up with his counselor. Patient encouraged to consider inpatient program for his alcohol abuse. Impression; 1. Reports anxiety 2. Reports chronic pain 3. Appears to be intoxicated [] Dragon Disclaimer: Dragon Disclaimer: This electronic medical record was generated, in whole or in part, using a voice recognition dictation system. Departure Departure: Referrals: PCP,NO (PCP) Dragon Disclaimer This chart was dictated in whole or in part using Voice Recognition software in a busy, high-work load, and often noisy Emergency Department environment. It may contain unintended and wholly unrecognized errors or omissions. Dragon Disclaimer This chart was dictated in whole or in part using Voice Recognition software in a busy, high-work load, and often noisy Emergency Department environment. It may contain unintended and wholly unrecognized errors or omissions. Dragon Disclaimer This chart was dictated in whole or in part using Voice Recognition software in a busy, high-work load, and often noisy Emergency Department environment. It may contain unintended and wholly unrecognized errors or omissions. MAYA SOLOMON MD Jan 07, 2021 23:44
[2021-01-07] MEDS ORDERED: LORazepam 1 MG TABLET ONE (23:55)
[2021-01-08] MEDS ORDERED: LORazepam 1 MG TABLET PO ONE (00:30)
== END 2021-01-08 00:08 ==
LOC: ER 23:42
DX: F41.9 Anxiety disorder, unspecified (principal); G89.29 Other chronic pain; F10.229 Alcohol dependence with intoxication, unspecified; F32.9 Major depressive disorder, single episode, unspecified; F17.210 Nicotine dependence, cigarettes, uncomplicated; Y90.9 Presence of alcohol in blood, level not specified
CPT/HCPCS: 99284

== ENCOUNTER 2021-01-29 14:09 | Emergency (ER) | payer MEDICAID ==
[~2021-01-29] VITALS: Ht 175.3 cm; Wt 71.5 kg
[2021-01-29] MEDS ORDERED: ONDANSETRON PF 4 MG/2 ML VIAL. IVP ONE (14:45)
[2021-01-29] MEDS ORDERED: IV NORMAL SALINE 1,000ML 1,000 ML IV SCH (14:45)
[2021-01-29] MEDS ORDERED: HYDROmorphone PF 1 MG/ML DISP.SYRIN IV/SQ PRN (14:45)
--- NOTE | 2021-01-29 14:53 | PHYS DOC ---
Past History Past Medical History: Alcoholism, Anxiety, Depression, Pancreatitis Additional Past Medical Histor: chronic pancreatitis (CATHY WILLS TELEPHONE DIRECTORY DELIVERER) Past Surgical History: Other Additional Past Surgical Histo: ERCP, colonoscopies,mult drains in abd; mult abd procedures (CATHY WILLS TELEPHONE DIRECTORY DELIVERER) Smoking: Cigarettes Alcohol Use: Occasionally Drug Use: Marijuana (CATHY WILLS TELEPHONE DIRECTORY DELIVERER) General Adult EDM: Chief Complaint: ABDOMINAL PAIN HPI: HPI: Patient is a 35-year-old male presents today with abdominal pain. Patient states pain has been going on for 4 to 5 days it is located in the upper epi gastrium region but he states he is tender throughout his entire abdomen area. Patient also has nausea associated with this but no vomiting patient also states he has 4-5 loose stools daily since this pain started. Patient states he has a past medical history of pancreatitis with a pancreatic cyst with drainage and has history of elevated liver enzymes in the past. Patient does take morphine IR and Dilaudid p.o. at home for pain control and has been out of his Dilaudid p.o. and took his last morphine IR today. Patient states he had hepatic stents changed out a couple of weeks ago and is due to go back in a couple more weeks to have those replaced. He states he is seen at the [facility] with GI services and interventional radiology services for the hepatic stent placement. (CATHY WILLS TELEPHONE DIRECTORY DELIVERER) Review of Systems: Review of Systems: Constitutional: Denies fever or chills Eyes: Denies change in visual acuity HENT: Denies nasal congestion or sore throat Respiratory: Denies cough or shortness of breath Cardiovascular: Denies chest pain or edema GI: abdominal pain, nausea, diarrhea, denies vomiting. : Denies dysuria Musculoskeletal: Denies back pain or joint pain Integument: Denies rash Neurologic: Denies headache, focal weakness or sensory changes Endocrine: Denies polyuria or polydipsia Lymphatic: Denies swollen glands Psychiatric: Denies depression or anxiety (CATHY WILLS TELEPHONE DIRECTORY DELIVERER) Current Medications: Current Meds: Current Medications Medications (Trade) Dose Ordered Sig/Netta Start Time Stop Time Status Last Admin Dose Admin Hydromorphone HCl (Dilaudid) 1 mg PRN Q15MIN PRN 01/29/21 14:45 10/4/21 14:44 UNV Ondansetron HCl (Zofran) 4 mg 1X ONCE 01/29/21 14:45 01/29/21 14:46 UNV Sodium Chloride 1,000 ml @ 1,000 mls/hr Q1H 01/29/21 14:45 01/29/21 15:44 UNV (CATHY WILLS APRN) Allergies: Allergies: Allergies Coded Allergies Type Severity Reaction Last Updated Verified adhesive Allergy Intermediate 01/08/21 Yes No Known Allergies Allergy Unknown 02/04/20 Yes (CATHY WILLS APRN) Physical Exam: PE: Constitutional: acute distress noted. [] HENT: Normocephalic, atraumatic, bilateral external ears normal, oropharynx moist, no oral exudates, nose normal. [] Eyes: PERRLA, EOMI, conjunctiva normal, no discharge. [] Neck: Normal range of motion, no tenderness, supple, no stridor. [] Cardiovascular:Heart rate regular rhythm, no murmur [] Lungs & Thorax: Bilateral breath sounds clear to auscultation [] Abdomen: Abdominal pain noted throughout entire abdomen patient is guarded bowel sounds are hyperactive in the left lower quadrant and hypoactive throughout the rest of the abdomen Skin: Warm, dry, no erythema, no rash. [] Back: No tenderness, no CVA tenderness. [] Extremities: No tenderness, no cyanosis, no clubbing, ROM intact, no edema. [] Neurologic: Alert and oriented X 3, normal motor function, normal sensory function, no focal deficits noted. [] Psychologic: tearful and holding self (CATHY WILLS APRN) Current Patient Data: Labs: Laboratory Tests Test 01/29/21 15:00 01/29/21 16:23 White Blood Count 10.4 x10^3/uL Red Blood Count 5.18 x10^6/uL Hemoglobin 15.5 g/dL Hematocrit 46.8 % Mean Corpuscular Volume 90 fL Mean Corpuscular Hemoglobin 30 pg Mean Corpuscular Hemoglobin Concent 33 g/dL Red Cell Distribution Width 17.8 % Platelet Count 210 x10^3/uL Neutrophils (%) (Auto) 81 % Lymphocytes (%) (Auto) 11 % Monocytes (%) (Auto) 5 % Eosinophils (%) (Auto) 3 % Basophils (%) (Auto) 0 % Neutrophils # (Auto) 8.5 x10^3uL Lymphocytes # (Auto) 1.2 x10^3/uL Monocytes # (Auto) 0.5 x10^3/uL Eosinophils # (Auto) 0.3 x10^3/uL Basophils # (Auto) 0.0 x10^3/uL Sodium Level 137 mmol/L Potassium Level 3.9 mmol/L Chloride Level 101 mmol/L Carbon Dioxide Level 23 mmol/L Anion Gap 13 Blood Urea Nitrogen 4 mg/dL Creatinine 0.5 mg/dL Estimated GFR (Cockcroft-Gault) 189.2 BUN/Creatinine Ratio 8 Glucose Level 106 mg/dL Lactic Acid Level 1.5 mmol/L Calcium Level 8.8 mg/dL Total Bilirubin 0.2 mg/dL Direct Bilirubin 0.1 mg/dL Aspartate Amino Transf (AST/SGOT) 19 U/L Alanine Aminotransferase (ALT/SGPT) 19 U/L Alkaline Phosphatase 103 U/L Total Protein 7.0 g/dL Albumin 3.4 g/dL Albumin/Globulin Ratio 0.9 Lipase 518 U/L Urine Collection Type Unknown Urine Color Yellow Urine Clarity Clear Urine pH 6.0 Urine Specific [place] <=1.005 Urine Protein Neg Urine Glucose (UA) Neg mg/dL Urine Ketones (Stick) Neg mg/dL Urine Blood Neg Urine Nitrite Neg Urine Bilirubin Neg Urine Urobilinogen Dipstick 0.2 mg/dL Urine Leukocyte Esterase Neg Urine RBC 0 /HPF Urine WBC 0 /HPF Urine Bacteria 0 /HPF Current Medications Medications (Trade) Dose Ordered Sig/Netta Route PRN Reason Start Time Stop Time Status Last Admin Dose Admin Hydromorphone HCl (Dilaudid) 1 mg PRN Q15MIN PRN IV/SQ PAIN GREATER THAN 3/10 01/29/21 14:45 01/30/21 14:44 01/29/21 15:24 Sodium Chloride 1,000 ml @ 1,000 mls/hr Q1H IV 01/29/21 14:45 01/29/21 15:44 DC 01/29/21 15:25 Ondansetron HCl (Zofran) 4 mg 1X ONCE IVP 01/29/21 14:45 01/29/21 14:49 DC 01/29/21 15:24 Iohexol (Omnipaque 300 Mg/ml) 75 ml 1X ONCE IV 01/29/21 15:00 01/29/21 15:01 DC 01/29/21 15:02 Info (Do NOT chart on this entry -- for MONITORING) 1 each PRN DAILY PRN MC SEE COMMENTS 01/29/21 15:00 01/31/21 14:59 Promethazine HCl (Phenergan) 25 mg 1X ONCE PO 01/29/21 18:00 01/29/21 18:01 UNV Vital Signs: Vital Signs Date Time Temp Pulse Resp B/P (MAP) Pulse Ox O2 Delivery O2 Flow Rate FiO2 01/29/21 14:23 98.7 94 18 136/94 (108) 98 Room Air (CATHY WILLS APRN) EKG: EKG: [] (CATHY WILLS APRN) Radiology/Procedures: Radiology/Procedures: PROCEDURE: CT ABD PELV W/ IV CONTRST ONLY INDICATION: Reason: abdominal pain hx of pancreatic cyst / Spl. Instructions: / History: COMPARISON: December 20, 2020 TECHNIQUE: Axial CT images were obtained through the abdomen and pelvis with intravenous contrast. One or more of the following individualized dose reduction techniques were utilized for this examination: 1. Automated exposure control; 2. Adjustment of the mA and/or kV according to patient size; 3. Use of iterative reconstruction technique. FINDINGS: There is some wall thickening of the distal esophagus. Vascular: Multifocal plaque within the abdominal vasculature. Hepatobiliary: Pneumobilia is identified with common bile duct stent. Subcentimeter low-density lesions within the right lobe the liver which are too small to characterize but a common finding. Pancreas: At the pancreatic head there is heterogeneity and regions of edema and fluid. This fluid is also seen extending adjacent to the medial and lateral aspect of the duodenum. There is calcifications within the region as well as focal dilation of the pancreatic duct. There is a focal pocket of fluid seen within the pancreatic head region anterior to the stent with this pocket of fluid measuring up to about 29 mm. Spleen: Spleen unremarkable. Renal/Bladder: No significant hydronephrosis. Urinary bladder is distended at time of exam. Gastrointestinal: Small amount of fluid is seen tracking adjacent to the right side of the colon which may be associated with the pancreatic process. Appendix not well evaluated since it likely abuts unopacified loops of bowel. There is some fluid-filled distention of some small bowel loops. IMPRESSION: * Wall thickening of the distal esophagus. Would correlate for possible causes such as esophagitis or reflux. * Repeat demonstration of edema and fluid seen at the pancreatic region as well as calcifications. There is also some edema and fluid seen tracking along the right side of the abdomen as well as calcifications within the pancreas. This can be seen with acute on chronic pancreatitis. There is some associated dilatation of the pancreatic duct as well as a pocket of fluid seen at the pancreatic head and uncinate process region which could be from pseudocyst f ormation with phlegmon not excluded. Pneumobilia and common bile duct stent is seen. * There is a few mildly distended loops of small bowel but no high-grade transition point to suggest obstruction. Electronically signed by: Brandon Collier MD (01/29/2021 3:32 PM) DESKTOP- [id number][] (CATHY WILLS APRN) Heart Score: C/O Chest Pain: N/A Risk Factors: Risk Factors: DM, Current or recent (<one month) smoker, HTN, HLP, family history of CAD, obesity. Risk Scores: Score 0 - 3: 2.5% MACE over next 6 weeks - Discharge Home Score 4 - 6: 20.3% MACE over next 6 weeks - Admit for Clinical Observation Score 7 - 10: 72.7% MACE over next 6 weeks - Early Invasive Strategies (CATHY WILLS APRN) C/O Chest Pain: No (JULIANNA OLIVER DO) Course & Med Decision Making: Course & Med Decision Making Pertinent Labs and Imaging studies reviewed. (See chart for details) Patient examined and labs done 1744 patient reexamined continue to have 8 out of 10 pain and nausea, patient admits to drinking last night. Patient counseled that while drinking alcohol increases his pain in his pancreas thus increasing his abdominal pain. Spoke to Dr. Akbar regarding this case will attempt p.o. Phenergan with a fluid challenge within 30 minutes and another dose of Dilaudid. Patient given plan of care patient agrees to current plan of care. We will attempt to discharge patient home for follow-up with his primary care physician in the a.m. [] 1922 patient reexamined continued to have 7 out of 10 pain but is taking p.o. fluids and soft food without any nausea. Instructed patient quit drinking alcohol while you use it to control pain is actually making her pain worse. Patient instructed to follow-up with primary care physician for further pain medicine. Patient agreed with plan of care. (CATHY WILLS APRN) Course & Med Decision Making I was the Attending physician on the above date of service of this patient. This patient was evaluated, examined, treated, and dispositioned from the emergency department by the mid-level practitioner. Patient is well-known to our facility and chronically pain seeking. No indication for continued narcotic pain medication at home and patient who already has sufficient amount at home. Problem is related to ongoing alcohol abuse causing GI problems. Alcohol cessation and close PCP and GI follow-up advised Electronically signed, Julianna Oliver DO (JULIANNA OLIVER DO) Maynor Disclaimer: Maynor Disclaimer: This electronic medical record was generated, in whole or in part, using a voice recognition dictation system. (CATHY WILLS APRN) Departure Departure: Impression: Primary Impression: Chronic pancreatitis Qualified Codes: K86.0 - Alcohol-induced chronic pancreatitis Additional Impressions: Alcohol abuse Chronic abdominal pain Disposition: HOME / SELF CARE / HOMELESS Condition: STABLE Referrals: [facility] PCP,NO (PCP) [facility] Patient Instructions: Abdominal Pain, Acute Pancreatitis, [id number] Additional Instructions: Follow up with PCP in am Do not drink alcohol Take Phenergan as needed for nausea Take Pepcid as directed daily Scripts Famotidine (PEPCID) 20 Mg Tablet 20 MG PO BID for dyspepsia for 7 Days, #14 TAB Prov: CATHY WILLS APRN 01/29/21 Promethazine Hcl (PROMETHAZINE HCL) 25 Mg Tablet 25 TAB PO PRN Q6HRS for Nausea, #20 TAB Prov: CATHY WILLS APRN 01/29/21 CATHY WILLS APRN Jan 29, 2021 14:53 JULIANNA OLIVER DO Jan 29, 2021 20:18
[2021-01-29] MEDS ORDERED: CONTRAST GIVEN. MC PRN (15:00)
[2021-01-29] MEDS ORDERED: IOHEXOL 300 MG/ML 75 ML VIAL. IV ONE (15:00)
[2021-01-29 15:31] LABS: BASO % 0 % (0-3); EOS # 0.3 x10^3/uL (0.0-0.7); EOS % 3 % (0-3); HEMATOCRIT 46.8 % (39.0-53.0); HEMOGLOBIN 15.5 g/dL (13.0-17.5); LYMPH # 1.2 x10^3/uL (1.0-4.8); LYMPH % 11 % (24-48); MEAN CORPUSCULAR HEMOGLOBIN 30 pg (25-35); MEAN CORPUSCULAR HGB CONC 33 g/dL (31-37); MEAN CORPUSCULAR VOLUME 90 fL (79-100); MONO # 0.5 x10^3/uL (0.0-1.1); MONO % 5 % (0-9); NEUT # 8.5 x10^3uL (1.8-7.7); NEUT % 81 % (31-73); PLATELET COUNT 210 x10^3/uL (140-400); RED BLOOD COUNT 5.18 x10^6/uL (4.30-5.70); RED CELL DISTRIBUTION WIDTH 17.8 % (11.5-14.5); WHITE BLOOD COUNT 10.4 x10^3/uL (4.0-11.0)
--- NOTE | 2021-01-29 15:34 | RAD ---
INDICATION: Reason: abdominal pain hx of pancreatic cyst / Spl. Instructions: / History: COMPARISON: December 20, 2020 TECHNIQUE: Axial CT images were obtained through the abdomen and pelvis with intravenous contrast. One or more of the following individualized dose reduction techniques were utilized for this examinat ion: 1. Automated exposure control; 2. Adjustment of the mA and/or kV according to patient size; 3 . Use of iterative reconstruction technique. FINDINGS: There is some wall thickening of the distal esophagus. Vascular: Multifocal plaque within the abdominal vasculature. Hepatobiliary: Pneumobilia is identified with common bile duct stent. Subcentimeter low-density lesio ns within the right lobe the liver which are too small to characterize but a common finding. Pancreas: At the pancreatic head there is heterogeneity and regions of edema and fluid. This fluid is also seen extending adjacent to the medial and lateral aspect of the duodenum. There is calcificatio ns within the region as well as focal dilation of the pancreatic duct. There is a focal pocket of flu id seen within the pancreatic head region anterior to the stent with this pocket of fluid measuring u p to about 29 mm. Spleen: Spleen unremarkable. Renal/Bladder: No significant hydronephrosis. Urinary bladder is distended at time of exam. Gastrointestinal: Small amount of fluid is seen tracking adjacent to the right side of the colon whic h may be associated with the pancreatic process. Appendix not well evaluated since it likely abuts un opacified loops of bowel. There is some fluid-filled distention of some small bowel loops. IMPRESSION: * Wall thickening of the distal esophagus. Would correlate for possible causes such as esophagitis or reflux. * Repeat demonstration of edema and fluid seen at the pancreatic region as well as calcifications. T here is also some edema and fluid seen tracking along the right side of the abdomen as well as calcif ications within the pancreas. This can be seen with acute on chronic pancreatitis. There is some asso ciated dilatation of the pancreatic duct as well as a pocket of fluid seen at the pancreatic head and uncinate process region which could be from pseudocyst formation with phlegmon not excluded. Pneumob dayday and common bile duct stent is seen. * There is a few mildly distended loops of small bowel but no high-grade transition point to suggest obstruction. Electronically signed by: Brandon Collier MD (01/29/2021 3:32 PM) [id number]
[2021-01-29 15:37] LABS: CALCIUM 8.8 mg/dL (8.5-10.1); CREATININE 0.5 mg/dL (0.7-1.3); GFR 189.2; POTASSIUM 3.9 mmol/L (3.5-5.1)
[2021-01-29 15:43] LABS: ALBUMIN 3.4 g/dL (3.4-5.0); ALBUMIN/GLOBULIN RATIO 0.9 (1.0-1.7); DIRECT BILIRUBIN 0.1 mg/dL (0.0-0.2); TOTAL BILIRUBIN 0.2 mg/dL (0.2-1.0)
[2021-01-29 17:29] LABS: BACTERIA,URINE 0 /HPF (0-FEW); BILIRUBIN,URINE NEG (NEG); CLARITY,URINE CLEAR; COLOR,URINE YELLOW; GLUCOSE,URINE NEG (NEG); NITRITE,URINE NEG (NEG); RBC,URINE 0 /HPF (0-2); UROBILINOGEN,URINE 0.2 mg/dL (0.2 mg/dL); WBC,URINE 0 /HPF (0-4)
[2021-01-29] MEDS ORDERED: HYDROmorphone PF 1 MG/ML DISP.SYRIN IVP ONE (18:00)
[2021-01-29] MEDS ORDERED: PROMETHAZINE 25 MG TABLET. PO ONE (18:00)
[2021-01-29] MEDS ORDERED: FAMOTIDINE 20 MG/2 ML VIAL IVP ONE (19:00)
[2021-01-29] MEDS ORDERED: LIDO:MAALOX 1:1 20 ML SINGLE DOSE. PO ONE (19:00)
[2021-01-29] MEDS ORDERED: FAMOTIDINE 20 MG/2 ML VIAL ONE (19:01)
[2021-01-29] MEDS ORDERED: PROM25TA10 PO (19:11)
[2021-01-29] MEDS ORDERED: FAMO-63 PO (19:27)
[2021-01-29 19:35] VITALS: BP 126/88
== END 2021-01-29 19:44 | disposition home or self-care (01) ==
LOC: ER 14:09
DX: K86.0 Alcohol-induced chronic pancreatitis (principal); G89.29 Other chronic pain; F10.20 Alcohol dependence, uncomplicated; Z88.8 Allergy status to other drugs, medicaments and biological substances; Y90.9 Presence of alcohol in blood, level not specified
CPT/HCPCS: 36415; 74177; 80053; 80076; 81001; 83605; 83690; 85025; 96361; 96374; 96375; 96376; 99285; J1170; J2405; J3490; J7030; Q0169; Q9967

== ENCOUNTER 2021-02-07 21:19 | Emergency (ER) | payer MEDICAID ==
[~2021-02-07] VITALS: Ht 175.3 cm; Wt 71.5 kg
[~2021-02-07 21:19] MED LIST changes: +FAMO-63 PO; +PROM25TA10 PO
[2021-02-07 21:39] VITALS: BP 123/83
[2021-02-07] MEDS ORDERED: IV NORMAL SALINE 1,000ML 1,000 ML IV ONE (22:00)
[2021-02-07] MEDS ORDERED: ONDANSETRON PF 4 MG/2 ML VIAL. IVP ONE (22:00)
[2021-02-07] MEDS ORDERED: FAMOTIDINE 20 MG/2 ML VIAL IVP ONE (22:00)
[2021-02-07 22:20] LABS: BASO # 0.2 x10^3/uL (0.0-0.2); BASO % 1 % (0-3); EOS # 0.4 x10^3/uL (0.0-0.7); EOS % 4 % (0-3); HEMATOCRIT 49.8 % (39.0-53.0); HEMOGLOBIN 16.9 g/dL (13.0-17.5); LYMPH # 2.4 x10^3/uL (1.0-4.8); LYMPH % 19 % (24-48); MEAN CORPUSCULAR HEMOGLOBIN 30 pg (25-35); MEAN CORPUSCULAR HGB CONC 34 g/dL (31-37); MEAN CORPUSCULAR VOLUME 89 fL (79-100); MONO # 0.4 x10^3/uL (0.0-1.1); MONO % 3 % (0-9); NEUT # 8.9 x10^3uL (1.8-7.7); NEUT % 73 % (31-73); PLATELET COUNT 301 x10^3/uL (140-400); RED CELL DISTRIBUTION WIDTH 16.7 % (11.5-14.5); WHITE BLOOD COUNT 12.3 x10^3/uL (4.0-11.0)
[2021-02-07 22:28] LABS: CALCIUM 9.1 mg/dL (8.5-10.1); CREATININE 1.2 mg/dL (0.7-1.3); GFR 68.9; POTASSIUM 3.9 mmol/L (3.5-5.1)
[2021-02-07 22:34] LABS: ALBUMIN 3.7 g/dL (3.4-5.0); ALBUMIN/GLOBULIN RATIO 0.9 (1.0-1.7); MAGNESIUM 2.2 mg/dL (1.8-2.4); TOTAL BILIRUBIN 0.1 mg/dL (0.2-1.0); TOTAL PROTEIN 7.7 g/dL (6.4-8.2)
[2021-02-07] MEDS ORDERED: LIDO:MAALOX 1:1 20 ML SINGLE DOSE. ONE (23:01)
--- NOTE | 2021-02-07 23:05 | PHYS DOC ---
Past History Past Medical History: Alcoholism, Anxiety, Depression, Pancreatitis Additional Past Medical Histor: chronic pancreatitis Past Surgical History: Other Additional Past Surgical Histo: ERCP, colonoscopies,mult drains in abd; mult abd procedures Smoking: Cigarettes Alcohol Use: None Drug Use: Marijuana General Adult EDM: Chief Complaint: ABDOMINAL PAIN HPI: HPI: Patient is a [age] year old [sex] who presents with [] Review of Systems: Review of Systems: Constitutional: Denies fever or chills Eyes: Denies change in visual acuity HENT: Denies nasal congestion or sore throat Respiratory: Denies cough or shortness of breath Cardiovascular: Denies chest pain or edema GI: Denies abdominal pain, nausea, vomiting, bloody stools or diarrhea : Denies dysuria Musculoskeletal: Denies back pain or joint pain Integument: Denies rash Neurologic: Denies headache, focal weakness or sensory changes Endocrine: Denies polyuria or polydipsia Lymphatic: Denies swollen glands Psychiatric: Denies depression or anxiety Current Medications: Current Meds: Current Medications Medications (Trade) Dose Ordered Sig/Netta Start Time Stop Time Status Last Admin Dose Admin Famotidine (Pepcid Vial) 20 mg 1X ONCE 02/07/21 22:00 02/07/21 22:01 DC 02/07/21 21:58 20 MG Fentanyl Citrate (Fentanyl 2ml Vial) 75 mcg 1X ONCE 02/07/21 22:00 02/07/21 22:01 DC 02/07/21 21:58 75 MCG Ondansetron HCl (Zofran) 4 mg 1X ONCE 02/07/21 22:00 02/07/21 22:01 DC 02/07/21 21:58 4 MG Sodium Chloride 1,000 ml @ 1,000 mls/hr 1X ONCE 02/07/21 22:00 02/07/21 22:59 DC 02/07/21 21:58 1,000 MLS/HR Allergies: Allergies: Allergies Coded Allergies Type Severity Reaction Last Updated Verified adhesive Allergy Intermediate 01/08/21 Yes No Known Allergies Allergy Unknown 02/04/20 Yes Physical Exam: PE: Constitutional: Well developed, well nourished, no acute distress, non-toxic appearance. [] HENT: Normocephalic, atraumatic, bilateral external ears normal, oropharynx moist, no oral exudates, nose normal. [] Eyes: PERRLA, EOMI, conjunctiva normal, no discharge. [] Neck: Normal range of motion, no tenderness, supple, no stridor. [] Cardiovascular:Heart rate regular rhythm, no murmur [] Lungs & Thorax: Bilateral breath sounds clear to auscultation [] Abdomen: Bowel sounds normal, soft, no tenderness, no masses, no pulsatile masses. [] Skin: Warm, dry, no erythema, no rash. [] Back: No tenderness, no CVA tenderness. [] Extremities: No tenderness, no cyanosis, no clubbing, ROM intact, no edema. [] Neurologic: Alert and oriented X 3, normal motor function, normal sensory function, no focal deficits noted. [] Psychologic: Affect normal, judgement normal, mood normal. [] Current Patient Data: Labs: Laboratory Tests Test 02/07/21 21:52 White Blood Count 12.3 x10^3/uL (4.0-11.0) H Red Blood Count 5.60 x10^6/uL (4.30-5.70) Hemoglobin 16.9 g/dL (13.0-17.5) Hematocrit 49.8 % (39.0-53.0) Mean Corpuscular Volume 89 fL (79-100) Mean Corpuscular Hemoglobin 30 pg (25-35) Mean Corpuscular Hemoglobin Concent 34 g/dL (31-37) Red Cell Distribution Width 16.7 % (11.5-14.5) H Platelet Count 301 x10^3/uL (140-400) Neutrophils (%) (Auto) 73 % (31-73) Lymphocytes (%) (Auto) 19 % (24-48) L Monocytes (%) (Auto) 3 % (0-9) Eosinophils (%) (Auto) 4 % (0-3) H Basophils (%) (Auto) 1 % (0-3) Neutrophils # (Auto) 8.9 x10^3uL (1.8-7.7) H Lymphocytes # (Auto) 2.4 x10^3/uL (1.0-4.8) Monocytes # (Auto) 0.4 x10^3/uL (0.0-1.1) Eosinophils # (Auto) 0.4 x10^3/uL (0.0-0.7) Basophils # (Auto) 0.2 x10^3/uL (0.0-0.2) Prothrombin Time 9.3 SEC (9.4-11.4) L Prothrombin Time INR 0.9 (0.9-1.1) Activated Partial Thromboplast Time 25 SEC (23-33) Sodium Level 143 mmol/L (136-145) Potassium Level 3.9 mmol/L (3.5-5.1) Chloride Level 104 mmol/L (98-107) Carbon Dioxide Level 23 mmol/L (21-32) Anion Gap 16 (6-14) H Blood Urea Nitrogen 7 mg/dL (8-26) L Creatinine 1.2 mg/dL (0.7-1.3) Estimated GFR (Cockcroft-Gault) 68.9 BUN/Creatinine Ratio 6 (6-20) Glucose Level 113 mg/dL (70-99) H Lactic Acid Level 2.2 mmol/L (0.4-2.0) H Calcium Level 9.1 mg/dL (8.5-10.1) Magnesium Level 2.2 mg/dL (1.8-2.4) Total Bilirubin 0.1 mg/dL (0.2-1.0) L Aspartate Amino Transferase (AST) 15 U/L (15-37) Alanine Aminotransferase (ALT) 19 U/L (16-63) Alkaline Phosphatase 110 U/L (46-116) Total Protein 7.7 g/dL (6.4-8.2) Albumin 3.7 g/dL (3.4-5.0) Albumin/Globulin Ratio 0.9 (1.0-1.7) L Lipase 754 U/L (73-393) H Ethyl Alcohol Level 222 mg/dL (0-10) H Vital Signs: Vital Signs Date Time Temp Pulse Resp B/P (MAP) Pulse Ox O2 Delivery O2 Flow Rate FiO2 02/07/21 21:39 98.3 108 20 123/83 (96) 99 EKG: EKG: [] Radiology/Procedures: Radiology/Procedures: [] Heart Score: Risk Factors: Risk Factors: DM, Current or recent (<one month) smoker, HTN, HLP, family history of CAD, obesity. Risk Scores: Score 0 - 3: 2.5% MACE over next 6 weeks - Discharge Home Score 4 - 6: 20.3% MACE over next 6 weeks - Admit for Clinical Observation Score 7 - 10: 72.7% MACE over next 6 weeks - Early Invasive Strategies Course & Med Decision Making: Course & Med Decision Making Pertinent Labs and Imaging studies reviewed. (See chart for details) [] Dragon Disclaimer: Dragon Disclaimer: This electronic medical record was generated, in whole or in part, using a voice recognition dictation system. Departure Departure: Impression: Primary Impression: Alcohol abuse Additional Impressions: Chronic pancreatitis Qualified Codes: K86.0 - Alcohol-induced chronic pancreatitis Alcoholic gastritis Qualified Codes: K29.20 - Alcoholic gastritis without bleeding Disposition: HOME / SELF CARE / HOMELESS Condition: STABLE Referrals: PCP,YSD (PCP) TASH WHITFIELD MD Patient Instructions: Acute Pancreatitis, [id number], Alcohol and Drug Addiction, Finding Treatment, Alcoholic Gastritis-Brief, Chronic Alcoholism Additional Instructions: Please follow with your GI specialist at . You have been offered admission but have elected to present by yourself to for further evaluation. CT imaging was held today due to recent CT imaging which demonstrated findings consistent for chronic pancreatitis. CLAIR MERIDA DO Feb 07, 2021 23:05
[2021-02-07] MEDS ORDERED: MORPHINE SULFATE 4 MG/ML DISP.SYRIN. IV ONE (23:15)
[2021-02-07] MEDS ORDERED: LIDO:MAALOX 1:1 20 ML SINGLE DOSE. PO ONE (23:15)
[2021-02-07] MEDS ORDERED: MORPHINE SULFATE 2 MG/ML DISP.SYRIN. IV ONE (23:15)
== END 2021-02-07 23:26 | disposition home or self-care (01) ==
LOC: ER 21:19
DX: K29.20 Alcoholic gastritis without bleeding (principal); K86.0 Alcohol-induced chronic pancreatitis; F10.20 Alcohol dependence, uncomplicated; F41.9 Anxiety disorder, unspecified; F32.9 Major depressive disorder, single episode, unspecified; F17.210 Nicotine dependence, cigarettes, uncomplicated; Z88.8 Allergy status to other drugs, medicaments and biological substances; Y90.7 Blood alcohol level of 200-239 mg/100 ml
CPT/HCPCS: 36415; 80053; 83605; 83690; 83735; 85025; 85610; 85730; 96361; 96374; 96375; 99284; G0480; J2405; J3010; J3490; J7030

== ENCOUNTER 2021-02-26 03:51 | Inpatient (IN) | payer MEDICAID ==
[~2021-02-26] VITALS: Ht 175.3 cm; Wt 70.3 kg
[2021-02-26] MEDS ORDERED: ONDANSETRON PF 4 MG/2 ML VIAL. ONE (04:29)
[2021-02-26] MEDS ORDERED: IV RINGERS SOLUTION,LACTATED 1,000 ML IV ONE (04:30)
[2021-02-26] MEDS ORDERED: ONDANSETRON PF 4 MG/2 ML VIAL. IVP ONE (04:45)
[2021-02-26] MEDS ORDERED: MORPHINE SULFATE 2 MG/ML DISP.SYRIN. ONE (05:04)
[2021-02-26] MEDS ORDERED: MORPHINE SULFATE 4 MG/ML DISP.SYRIN. ONE (05:05)
[2021-02-26 05:15] LABS: BASO % 0 % (0-3); EOS # 0.4 x10^3/uL (0.0-0.7); EOS % 3 % (0-3); HEMATOCRIT 44.9 % (39.0-53.0); HEMOGLOBIN 15.4 g/dL (13.0-17.5); LYMPH # 1.6 x10^3/uL (1.0-4.8); LYMPH % 13 % (24-48); MEAN CORPUSCULAR HEMOGLOBIN 30 pg (25-35); MEAN CORPUSCULAR HGB CONC 34 g/dL (31-37); MEAN CORPUSCULAR VOLUME 89 fL (79-100); MONO # 0.6 x10^3/uL (0.0-1.1); MONO % 5 % (0-9); NEUT % 79 % (31-73); PLATELET COUNT 247 x10^3/uL (140-400); RED BLOOD COUNT 5.07 x10^6/uL (4.30-5.70); RED CELL DISTRIBUTION WIDTH 15.5 % (11.5-14.5); WHITE BLOOD COUNT 12.6 x10^3/uL (4.0-11.0)
[2021-02-26] MEDS ORDERED: MORPHINE SULFATE 2 MG/ML DISP.SYRIN. IV ONE ×2 (05:15)
[2021-02-26] MEDS ORDERED: MORPHINE SULFATE 4 MG/ML DISP.SYRIN. IV ONE ×2 (05:15)
--- NOTE | 2021-02-26 05:15 | RAD ---
PQRS Compliance Statement: One or more of the following individualized dose reduction techniques were utilized for this examinat ion: 1. Automated exposure control 2. Adjustment of the mA and/or kV according to patient size 3. Use of iterative reconstruction technique CT abdomen/pelvis without contrast 02/26/2021 4:23 AM INDICATION: Epigastric pain COMPARISON: CT abdomen/pelvis 01/29/2021 TECHNIQUE: Multiple axial CT images of the abdomen and pelvis were obtained without intravenous contr ast. Coronal and sagittal reformats are provided. FINDINGS: Lung bases are clear. Heart size is within normal limits. Evaluation of solid abdominal viscera is li mited without intravenous contrast. The liver, spleen, adrenal glands and gallbladder are similar in appearance. Similar degree of pneumobilia. There is dense calcification at the head of the pancreas. Peripancreatic inflammatory changes are identified with inflammation surrounding the second portion o f the duodenum. Main pancreatic duct is dilated to 6 mm. There are a stent is present. The abdominal aorta is normal in course and caliber. There are no pathologically enlarged lymph nodes in the abdomen and pelvis. There is no abdominal free fluid. There is no free intraperitoneal air. Small and large bowel are normal in caliber. There is no evidence for bowel obstruction. There are no pericolonic inflammatory changes. Appendix appears absent. The kidneys are relatively symmetric in appearance. There is no suspicious renal mass within the limi tations of a noncontrast examination. There is no hydronephrosis. There are no calculi within the kid neys, ureters or urinary bladder. Urinary bladder is within normal limits given the degree of distent ion. Prostate and seminal vesicles are normal in appearance. No suspicious osseous abnormality. IMPRESSION: 1. Coarse calcifications of the head of the pancreas with adjacent plantar changes may represent acut e on chronic pancreatitis. There is associated inflammation involving the second and third portion of the duodenum. No bowel obstruction. Electronically signed by: Latrice Hernadez MD (02/26/2021 5:13 AM) [facility]
[2021-02-26 05:18] LABS: CALCIUM 9.3 mg/dL (8.5-10.1); CREATININE 0.8 mg/dL (0.7-1.3); GFR 109.4; POTASSIUM 3.5 mmol/L (3.5-5.1)
[2021-02-26 05:23] LABS: ALBUMIN/GLOBULIN RATIO 1.2 (1.0-1.7); TOTAL BILIRUBIN 0.3 mg/dL (0.2-1.0); TOTAL PROTEIN 7.3 g/dL (6.4-8.2)
--- NOTE | 2021-02-26 06:08 | PHYS DOC ---
Past History Past Medical History: Alcoholism, Anxiety, Depression, Pancreatitis Additional Past Medical Histor: chronic pancreatitis (MINGO JIMENEZ MD) Past Surgical History: Other Additional Past Surgical Histo: ERCP, colonoscopies,mult drains in abd; mult abd procedures (MINGO JIMENEZ MD) Smoking: Cigarettes Alcohol Use: None Drug Use: Marijuana (MINGO JIMENEZ MD) Adult General Chief Complaint Chief Complaint: ABDOMINAL PAIN HPI HPI Patient is a 36-year-old male with a past medical history significant for alcoholism and pancreatitis, status post 3 days ERCP at who presents with a chief complaint of epigastric pain, sharp in nature, 8 out of 10 with nausea. Denies any alcohol ingestion. Denies any recent traumas, travels, illnesses, chest pain, shortness of breath, fevers, dysuria, hematuria, blood in the stool or diarrhea. (MINGO JIMENEZ MD) Review of Systems Review of Systems Review of systems otherwise unremarkable except noted in HPI (MINGO JIMENEZ MD) Allergies Allergies Allergies Coded Allergies Type Severity Reaction Last Updated Verified adhesive Allergy Intermediate 01/08/21 Yes No Known Allergies Allergy Unknown 02/04/20 Yes (MINGO JIMENEZ MD) Physical Exam Physical Exam Constitutional: Well developed, well nourished, no acute distress, non-toxic appearance. [] HENT: Normocephalic, atraumatic, bilateral external ears normal, oropharynx moist, no oral exudates, nose normal. [] Eyes: conjunctiva normal, no discharge. [] Neck: Normal range of motion, no tenderness, supple, no stridor. [] Cardiovascular:Heart rate regular rhythm, no murmur [] Lungs & Thorax: Bilateral breath sounds clear to auscultation [] Abdomen: soft, epigastric tenderness to palpation, no masses, no pulsatile masses. [] Skin: Warm, dry, no erythema, no rash. [] Back: no CVA tenderness. [] Extremities: No tenderness, ROM intact, no edema. [] Neurologic: Alert and oriented X 3, no focal deficits noted. [] Psychologic: Affect normal, judgement normal, mood normal. [] (MINGO JIMENEZ MD) EKG EKG [] (MINGO JIMENEZ MD) Radiology/Procedures Radiology/Procedures []RS Compliance Statement: One or more of the following individualized dose reduction techniques were utilized for this examination: 1. Automated exposure control 2. Adjustment of the mA and/or kV according to patient size 3. Use of iterative reconstruction technique CT abdomen/pelvis without contrast 02/26/2021 4:23 AM INDICATION: Epigastric pain COMPARISON: CT abdomen/pelvis 01/29/2021 TECHNIQUE: Multiple axial CT images of the abdomen and pelvis were obtained without intravenous contrast. Coronal and sagittal reformats are provided. FINDINGS: Lung bases are clear. Heart size is within normal limits. Evaluation of solid abdominal viscera is limited without intravenous contrast. The liver, spleen, adrenal glands and gallbladder are similar in appearance. Similar degree of pneumobilia. There is dense calcification at the head of the pancreas. Peripancreatic inflammatory changes are identified with inflammation surrounding the second portion of the duodenum. Main pancreatic duct is dilated to 6 mm. There are a stent is present. The abdominal aorta is normal in course and caliber. There are no pathologically enlarged lymph nodes in the abdomen and pelvis. There is no abdominal free fluid. There is no free intraperitoneal air. Small and large bowel are normal in caliber. There is no evidence for bowel obstruction. There are no pericolonic inflammatory changes. Appendix appears absent. The kidneys are relatively symmetric in appearance. There is no suspicious renal mass within the limitations of a noncontrast examination. There is no hydronephrosis. There are no calculi within the kidneys, ureters or urinary bladder. Urinary bladder is within normal limits given the degree of distention. Prostate and seminal vesicles are normal in appearance. No suspicious osseous abnormality. IMPRESSION: 1. Coarse calcifications of the head of the pancreas with adjacent plantar changes may represent acute on chronic pancreatitis. There is associated inflam mation involving the second and third portion of the duodenum. No bowel obstruction. Electronically signed by: Latrice Hernadez MD (02/26/2021 5:13 AM) [facility] (MINGO JIMENEZ MD) Heart Score C/O Chest Pain: No Risk Factors: Risk Factors: DM, Current or recent (<one month) smoker, HTN, HLP, family history of CAD, obesity. Risk Scores: Risk Factors: DM, Current or recent (<one month) smoker, HTN, HLP, family hi story of CAD, obesity. (MINGO JIMENEZ MD) Course & Med Decision Making Course & Med Decision Making Patient is a 36-year-old male with a past medical history significant for pancreatitis with recent ERCP who presents with abdominal pain Vital signs notable for tachycardia. Physical exam noted above. Patient placed on the monitor with IV access established, and fluid resuscitation begun. Made n.p.o. Given pain medicine. Given nausea medicine. CT notable for acute on chronic pancreatitis. [] (MINGO JIMENEZ MD) Course & Med Decision Making The patient's lipase is 654. He is still having quite a bit of discomfort. I have changed his pain medication over to Dilaudid which worked better for him when he was at . His other labs are unremarkable except for a slight white count of 12.6. I spoke with Dr. Vega our hospitalist and he is willing to admit the patient for pancreatitis. Since the patient was at I have notified to see if he needs to go back there. They are on high volume so I am unsure if a room will be available. If they do not have a room with the patient does not need to go to their facility, we will admit him here. The patient is in agreement with this plan. I spoke with Dr. Boyle, gastroenterology at and she has recommended admitting the patient and supportive care. She does not believe there is any additional value for transferring the patient to if our facility is comfortable with managing his supportive care and pain control. Dr. Vega is comfortable with this admission. He will be admitted to this facility. (KEITH CHAN DO) Dragon Disclaimer Dragon Disclaimer This electronic medical record was generated, in whole or in part, using a voice recognition dictation system. (MINGO JIMENEZ MD) Departure Departure: Impression: Primary Impression: Acute on chronic pancreatitis Disposition: ADMITTED INPATIENT Condition: STABLE Referrals: NON,STAFF (PCP) MINGO JIMENEZ MD Feb 26, 2021 06:08 KEITH CHAN DO Feb 26, 2021 07:28
[2021-02-26] MEDS ORDERED: HYDROmorphone PF 1 MG/ML DISP.SYRIN IVP ONE (07:30)
[2021-02-26] MEDS ORDERED: IV NORMAL SALINE 1,000ML 1,000 ML IV ONE (07:45)
[2021-02-26] MEDS: HYDROmorphone PF 1 MG/ML DISP.SYRIN IV PRN ×2 (10:09→12:46)
[2021-02-26] MEDS: ONDANSETRON PF 4 MG/2 ML VIAL. IVP PRN ×2 (10:09→15:30)
[2021-02-26 13:49] VITALS: BP 115/78
--- NOTE | 2021-02-26 14:02 | NUR ---
PT ARRIVED TO ROOM 117. PT REQUESTING PAIN MEDS. ER DID NOT RECORD STOP TIMES OR REASSESSMENTS ON PAIN MEDICATION. PT HAD AN ERCP PROCEDURE ON 02/23. PT USES MARIJUANA TO SLEEP AND FOR PAIN.
[2021-02-26 14:03] LABS: BILIRUBIN,URINE SMALL (NEG); CLARITY,URINE CLEAR; COLOR,URINE YELLOW; GLUCOSE,URINE NEG (NEG); NITRITE,URINE NEG (NEG); UROBILINOGEN,URINE 0.2 mg/dL (0.2 mg/dL)
[2021-02-26 14:07] LABS: BACTERIA,URINE 0 /HPF (0-FEW); RBC,URINE OCC /HPF (0-2); SQUAMOUS EPITHELIAL CELL,UR OCC /LPF; WBC,URINE OCC /HPF (0-4)
--- NOTE | 2021-02-26 14:37 | HP ---
DATE OF SERVICE: 02/26/2021 ADMIT DATE: 02/26/2021 HISTORY OF PRESENT ILLNESS: The patient is a 36-year-old male patient who presented to the Emergency Room of [facility] with complaint of abdominal pain. He stated that he had had an ERCP done at [facility] last , 02/23/2021 and apparently has had pancreatic duct and biliary duct stent placement as well as biopsy done and apparently this was done as an outpatient and the patient was discharged home and the patient came with a complaint of epigastric pain that is sharp in nature, 8/10 in severity with nausea. He denied any alcohol ingestion. Denied any recent trauma, travel, illness or any other complaint. He was extensively investigated and has had lab work and imaging studies. His lab work showed that his white cell count was slightly elevated at 12,600. His chemistry was mostly unremarkable except for a serum lipase of 650. Did have a CT scan of the abdomen and pelvis, which showed that there is coarse calcification of the head of the pancreas with adjacent changes that may represent [id number]-gl-svmwbgm pancreatitis. There is associated inflammation involving the second and third part of the duodenum, but no bowel obstruction. There are no pericolonic inflammatory changes. Appendix appears absent. Kidneys are relatively symmetric in appearance. There is no suspicious renal mass within the limitation of noncontrast examination. No hydronephrosis and no calculi within the kidneys, ureters or urinary bladder. The urinary bladder is within normal limits given the degree of distention. The patient was admitted with a diagnosis of fwcds-en-gwypqxj pancreatitis, was kept n.p.o., started on IV fluid, IV pain medication, antiemetic. PAST MEDICAL HISTORY: Significant for chronic pancreatitis, alcoholism, nicotine dependence, multiple abdominal abscesses that required percutaneous drainage. PAST SURGICAL HISTORY: Significant for esophagogastroduodenoscopy, colonoscopy. He has ERCP done about 4 times according to him. 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 He has also appendectomy. ALLERGIES: He has no known drug allergies. MEDICATIONS: He is currently on hydroxyzine, Lidoderm patches, Zofran, Compazine, trazodone, he takes 225 mg in the morning and 150 mg at bedtime; oxycodone 5 and 10 mg strength and morphine extended release 50 mg twice a day. He is on Protonix 40 mg once a day, folic acid 1 mg once a day, Creon 5000 units with food, Prozac 40 mg once a day, prazosin 1 mg at bedtime. He is on gabapentin 600 mg twice a day and 900 mg at bedtime and he is also on Voltaren gel. He is on nicotine lozenges and vitamin B1, MiraLax, melatonin and Benadryl as needed. FAMILY HISTORY: His both parents are alive in their 50s, have no medical problems. SOCIAL HISTORY: He is , from his , has a daughter and a son. He smokes 2 packs a day, quit drinking about a month ago. He continued to use marijuana. 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 PHYSICAL EXAMINATION: GENERAL: On arrival to the Emergency Room, he looked well and was clearly in no apparent respiratory distress. There was no pallor, jaundice, cyanosis, no lymphadenopathy, no thyromegaly, no jugular venous distention. No lower limb edema. VITAL SIGNS: His heart rate was 107, blood pressure was 124/80, temperature was 98.9, respiratory rate was 20 and oxygen saturation was 95% on room air. HEAD, EYES, EARS, NOSE, AND THROAT: Normocephalic, atraumatic. NECK: Supple. HEART: Normal first and second heart sounds, no gallop, rub or murmur. CHEST: Central trachea, equal bilateral expansion, air entry, vesicular breath sounds. No crepitation or rhonchi. ABDOMEN: Soft with tenderness in epigastric area. No guarding or rigidity. No organomegaly. All hernial orifices intact. Bowel sounds normal. NEUROLOGIC: He was awake, alert, responding appropriately. All cranial nerves intact. He moves extremities without difficulty. LABORATORY DATA: While in the Emergency Room, has had lab work done, showed a white cell count of 12,600, hemoglobin 15, hematocrit 45, MCV 89 and platelet count 247,000. His chemistry showed a serum sodium 139, potassium 3.5, chloride 101, bicarbonate 26, anion gap of 12, BUN 13, creatinine 0.8. Estimated GFR was 109 mL per minute. His glucose 116, calcium was 9.3. Total bilirubin, AST, ALT, alkaline phosphatase were normal. Lactate dehydrogenase was 192. Total protein was 7.3, albumin 4, lipase was 654. His coronavirus by rapid testing was negative. ASSESSMENT AND PLAN: In summary, this is a 36-year-old male patient who was admitted with qsprm-in-rmxqlqv pancreatitis, history of alcohol abuse and nicotine dependence. He apparently underwent ERCP on 02/23/2021, had had a biliary and pancreatic duct stent placement as well as biopsy. Plan is to keep him n.p.o., continue with intravenous fluids, intravenous pain medication, antiemetic. Once his pain and serum lipase decreases, we can start him on a clear liquid diet and advance as tolerated. GENTRY DR: Chrissy TID: [id number]
[2021-02-26] MEDS ORDERED: DIPH25CA58 PO (14:50)
[2021-02-26] MEDS ORDERED: GABA800T5 PO (14:50)
[2021-02-26] MEDS ORDERED: FOLI0.8C PO (14:50)
[2021-02-26] MEDS ORDERED: FLUO40CA9 PO (14:50)
[2021-02-26] MEDS ORDERED: TRAZ150T49 PO (14:50)
[2021-02-26] MEDS ORDERED: MORP15TA PO (14:50)
[2021-02-26] MEDS ORDERED: ACET325T9 PO (14:50)
[2021-02-26] MEDS ORDERED: TRAZ-120 PO (14:50)
[2021-02-26] MEDS ORDERED: GABA600T7 PO (14:50)
[2021-02-26] MEDS ORDERED: PROC10TA57 PO (14:50)
[2021-02-26] MEDS ORDERED: PRAZ1CAP2 PO (14:50)
[2021-02-26] MEDS ORDERED: POLY17PO5 PO (14:50)
[2021-02-26] MEDS ORDERED: DICL20GE TP (14:50)
[2021-02-26] MEDS ORDERED: LIDO700A21 TP (14:50)
[2021-02-26] MEDS ORDERED: CALC300T5 PO (14:50)
[2021-02-26] MEDS ORDERED: LIPA1CAP6 PO (14:50)
[2021-02-26] MEDS ORDERED: OXYC5CAP PO (14:50)
[2021-02-26] MEDS ORDERED: ONDA4TAB7 PO (14:50)
[2021-02-26] MEDS ORDERED: HYDR50TA PO (14:50)
[2021-02-26] MEDS ORDERED: MELA1TAB44 PO (14:50)
[2021-02-26] MEDS ORDERED: PANT20TA58 PO (14:50)
[2021-02-26] MEDS ORDERED: NICO1PAT21 TP (14:56)
[2021-02-26] MEDS ORDERED: VELVET GLOVE (14:56)
[2021-02-26] MEDS ORDERED: THIA100T22 PO (14:56)
[2021-02-26] MEDS: POTASSIUM CL 40MEQ D5-0.45NACL 1,000 ML IV SCH (15:04)
[2021-02-26] MEDS: HYDROmorphone PF 2 MG/ML VIAL IVP PRN ×3 (15:05→21:13)
[2021-02-26 19:56] VITALS: BP 106/70
[2021-02-26 23:50] VITALS: BP 94/62
[2021-02-27 00:27] VITALS: BP 134/79
[2021-02-27] MEDS: HYDROmorphone PF 2 MG/ML VIAL IVP PRN ×9 (00:30→23:22)
[2021-02-27] MEDS: POTASSIUM CL 40MEQ D5-0.45NACL 1,000 ML IV SCH ×3 (00:32→20:34)
[2021-02-27 05:48] VITALS: BP 111/79
[2021-02-27 07:09] LABS: BASO % 0 % (0-3); EOS # 0.2 x10^3/uL (0.0-0.7); EOS % 1 % (0-3); HEMATOCRIT 44.3 % (39.0-53.0); HEMOGLOBIN 14.8 g/dL (13.0-17.5); LYMPH # 0.6 x10^3/uL (1.0-4.8); LYMPH % 3 % (24-48); MEAN CORPUSCULAR HEMOGLOBIN 30 pg (25-35); MEAN CORPUSCULAR HGB CONC 33 g/dL (31-37); MEAN CORPUSCULAR VOLUME 89 fL (79-100); MONO # 0.6 x10^3/uL (0.0-1.1); MONO % 3 % (0-9); NEUT # 17.7 x10^3uL (1.8-7.7); NEUT % 93 % (31-73); PLATELET COUNT 239 x10^3/uL (140-400); RED BLOOD COUNT 4.95 x10^6/uL (4.30-5.70); WHITE BLOOD COUNT 19.1 x10^3/uL (4.0-11.0)
[2021-02-27 07:22] LABS: ALBUMIN 3.4 g/dL (3.4-5.0); ALBUMIN/GLOBULIN RATIO 1.1 (1.0-1.7); CALCIUM 9.2 mg/dL (8.5-10.1); CREATININE 0.6 mg/dL (0.7-1.3); GFR 152.4; TOTAL PROTEIN 6.6 g/dL (6.4-8.2)
[2021-02-27] MEDS: PANTOPRAZOLE IV 40 MG VIAL. IVP SCH (07:54)
[2021-02-27 10:53] VITALS: BP 110/70
[2021-02-27] MEDS ORDERED: IOHEXOL 300 MG/ML 75 ML VIAL. IV ONE (12:15)
[2021-02-27] MEDS ORDERED: HYDROmorphone PF 2 MG/ML VIAL IVP ONE (12:15)
[2021-02-27 12:29] LABS: % BANDS 1 % (0-9); % LYMPHS 3 % (24-48); % MONOS 1 % (0-10); % SEGS 95 % (35-66)
[2021-02-27 12:30] LABS: PLT ESTIMATE ADEQUATE (ADEQUATE)
[2021-02-27] MEDS: ONDANSETRON PF 4 MG/2 ML VIAL. IVP PRN ×2 (12:42→20:33)
--- NOTE | 2021-02-27 13:23 | RAD ---
CT ABDOMEN+PELVIS W History: Worsening abdominal pain and rising serum lipase. Comparison: CT abdomen and pelvis 02/26/2021, 01/29/2021, 12/20/2020 Technique: CT of the abdomen and pelvis with intravenous contrast. Findings: Bibasilar atelectatic change. No pleural effusion. The liver is normal in size and attenuation. There is redemonstration of a common bile duct stent wit h primarily left-sided pneumobilia. Mild air within the gallbladder. Small pericholecystic fluid, new from prior day. Redemonstrated heterogeneous appearance of the pancreatic head with numerous calcifi cations and prominent peripancreatic inflammatory change. Prominent pancreatic duct measuring 4 mm pr oximally. Relative hypodensity in the region of the pancreatic uncinate measuring approximately 1.0 x 0.7 cm. Nonencapsulated approximately 6 x 3.3 cm fluid collection anterior the pancreas between the stomach and the transverse colon, increasing from 02/26. The spleen, adrenals and kidneys are unremarkable and not significantly changed. The stomach demonstr ates secondary inflammatory changes at the antrum as does the duodenum and proximal jejunum. No evide nce of small bowel obstruction. Similar secondary wall inflammation in the hepatic flexure of the col on. There is small intra-abdominal free fluid collecting at the pelvis, increased from prior day comp arison. The bladder is unremarkable. Osseous structures and subcutaneous soft tissues are within norm al limits. Impression: 1. Acute on chronic pancreatitis with developing peripancreatic inflammatory change, possible uncina te fluid collection, pelvic free fluid, pericholecystic free fluid and a nonencapsulated appearing fl uid collection between the stomach and transverse colon. ------ Exposure: One or more of the following individualized dose reduction techniques were utilized for thi s examination: 1. Automated exposure control 2. Adjustment of the mA and/or kV according to patient size 3. Use of iterative reconstruction technique. Electronically signed by: Hitesh Sanchez MD (02/27/2021 1:20 PM) [id number]
[2021-02-27 15:16] VITALS: BP 117/80
--- NOTE | 2021-02-27 16:13 | PN ---
DATE: 02/27/2021 SUBJECTIVE: The patient is complaining of worsening abdominal pain. He is already on hydromorphone 2 mg IV every 3 hours and despite that, the pain has actually worsened and in fact, his serum lipase is steadily rising. Yesterday morning, it was 654, risen up to 975 and this morning went up to 1325. PHYSICAL EXAMINATION: GENERAL: When I examined him, he looked clearly in pain, but there is no pallor, jaundice, cyanosis, no lymphadenopathy, no thyromegaly, no jugular venous distention. No lower limb edema. VITAL SIGNS: His heart rate was 83, blood pressure was 110/70, temperature was 97.2, respiratory rate was 20 and oxygen saturation was 94%. HEAD, EYES, EARS, NOSE, AND THROAT: Normocephalic, atraumatic. NECK: Supple. HEART: Normal first and second heart sounds. No gallop, rub or murmur. CHEST: Shows central trachea, equal bilateral expansion, air entry, vesicular breath sounds. No crepitation or rhonchi. ABDOMEN: Distended with tenderness mostly in the epigastric area. There is no guarding or rigidity. No organomegaly. All hernial orifices intact. Bowel sounds normal. NEUROLOGIC: He was awake, alert, responding appropriately. All his cranial nerves are intact. He moves extremities without difficulty. His intake over the last 24 hours was 1000, no output was recorded. LABORATORY DATA: His lab work this morning showed the white cell count has risen up to 19,100, hemoglobin 14.8, hematocrit 44.3, MCV 89 and platelet count of 239,000 with a manual differential showed 93% polymorphs, 3% lymphocytes and 3% monocytes. His serum sodium was 135, potassium 4, chloride 98, bicarbonate 28, anion gap of 9, BUN 10, creatinine 0.6. Estimated GFR was 152 mL per minute. His glucose 130, calcium was 9.2. Total bilirubin, AST, ALT, alkaline phosphatase were normal. Total protein 6.2, albumin was 3.4. His serum lipase was 1325. ASSESSMENT: Ldcfa-ql-aepztyq pancreatitis with steadily rising serum lipase. His white cell count also has risen. The patient has had ERCP done on 02/23 and according to him, he has had pancreatic duct and biliary duct stent placement as well as biopsy done and apparently this was done as an outpatient. The patient was discharged home. PLAN: My plan is to continue with IV pain medication. Keep n.p.o. Continue with IV fluid. I have ordered a CT scan of the abdomen and pelvis with IV contrast as I am concerned that the worsening serum lipase and rising white cell count might be complication of stent deployment and once I have the official report from the radiologist, I would discuss the findings with the [facility] to see if he needs to be transferred there or any management that they might propose. GENTRY DR: Chrissy TID: [id number]
--- NOTE | 2021-02-27 18:38 | NUR ---
DR. AKHTAR IN CONTACT WITH [facility]. ZOSYN ORDERED Q6. 3.375MG. PT WILL STAY HERE FOR NOW. PT HAD CT SCAN. PT DILAUDID INCREASED TO 2MG Q2HRS. NEW IV PLACED. PT STILL IN EXTREME PAIN.
[2021-02-27 19:00] VITALS: BP 106/76
[2021-02-27 23:00] VITALS: BP 106/72
[2021-02-27] MEDS: PIPERACILLIN/TAZOBACTAM 3.375 GM in IV NORMAL SALINE 50ML 50 ML IV SCH (23:21)
[2021-02-28] MEDS: HYDROmorphone PF 2 MG/ML VIAL IVP PRN ×11 (01:27→22:45)
[2021-02-28] MEDS: ONDANSETRON PF 4 MG/2 ML VIAL. IVP PRN ×5 (02:09→20:23)
[2021-02-28 05:00] VITALS: BP 121/79
[2021-02-28] MEDS: PIPERACILLIN/TAZOBACTAM 3.375 GM in IV NORMAL SALINE 50ML 50 ML IV SCH ×4 (05:49→23:59)
--- NOTE | 2021-02-28 07:05 | PN ---
DATE: 02/27/2021 SUBJECTIVE: The patient was sitting at the edge of the bed, writhing in pain. Unfortunately, his serum lipase is steadily rising, has risen from 650 to 1325. His white cell count also has jumped from 12.6-19.1. I did repeat his CT scan of the abdomen and pelvis with IV contrast, which showed that the patient has acute on chronic pancreatitis with developing peripancreatic inflammatory changes, possible ____ fluid collection, pelvic free fluid, pericholecystic free fluid, and an encapsulated appearing fluid collection between the stomach and transverse colon. His spleen, adrenals, and kidneys are unremarkable and not significantly changed. The stomach demonstrates secondary inflammatory changes at the antrum as does the duodenum and proximal jejunum. No evidence of small-bowel obstruction, similar secondary wall inflammation in the hepatic flexure of the colon. There is small intraabdominal free fluid collecting at the pelvis, increased from prior day comparison. The bladder is unremarkable. Osseous structures and subcutaneous soft tissues are within normal limits. PHYSICAL EXAMINATION: GENERAL: When I examined him, he looked was obviously in severe pain, but there was no pallor, jaundice, cyanosis or thyromegaly. No jugular venous distention. No limb edema. VITAL SIGNS: His heart rate was 94, blood pressure 117/80, temperature was 99, respiratory rate was 18, and oxygen saturation was 94% on room air. HEAD, EYES, EARS, NOSE, AND THROAT: Normocephalic, atraumatic. NECK: Supple. HEART: Normal first and second heart sounds. No gallop or murmur. CHEST: Showed central trachea, equal bilateral chest expansion, air entry, vesicular breath sounds. No crepitation or rhonchi. ABDOMEN: Distended, soft, nontender. NEUROLOGIC: Abdomen was distended with tenderness mostly in the epigastric and right upper quadrant. There is no guarding or rigidity. No organomegaly. All hernial orifice intact. Bowel sounds normal. NEUROLOGIC: He was grossly intact. His intake over the last 24 hours was 1000. No output was recorded. LABORATORY DATA: This morning showed a white cell count 19,100, hemoglobin 14.8, hematocrit 44, MCV 89, and a platelet count 239,000 with a manual differential showed 93% polymorphs, 3% lymphocytes, and 3% monocytes. Serum sodium was 135, potassium 4, chloride 98, bicarbonate 28, anion gap of 9, BUN 10, creatinine 0.6. Estimated GFR was 152 mL per minute. His glucose 130, calcium was 9.2. Total bilirubin, AST, ALT, and alkaline phosphatase were normal. Total protein 6.6, albumin was 3.4, serum lipase was 1325. Urinalysis essentially unremarkable. ASSESSMENT: 1. Acute on chronic pancreatitis. Currently, the patient has had an ERCP done on 02/23/2021 at [facility]. Other medical problems include: A. Alcoholism. B. Nicotine dependence. C. Multiple abdominal abscesses, required percutaneous drainage. PLAN: My plan is to continue with n.p.o. status. Continue with IV fluid, IV pain medication, and antiemetic. I will repeat his lab work again tomorrow. I did leave a message with the transfer center at [facility]; however, ____ receive any call back from them yet. ZHANG/PALOMA DR: Chrissy TID: [id number]
[2021-02-28 07:38] LABS: BASO # 0.2 x10^3/uL (0.0-0.2); BASO % 1 % (0-3); EOS # 0.2 x10^3/uL (0.0-0.7); EOS % 1 % (0-3); HEMATOCRIT 42.1 % (39.0-53.0); HEMOGLOBIN 13.8 g/dL (13.0-17.5); LYMPH # 0.7 x10^3/uL (1.0-4.8); LYMPH % 3 % (24-48); MEAN CORPUSCULAR HEMOGLOBIN 29 pg (25-35); MEAN CORPUSCULAR HGB CONC 33 g/dL (31-37); MEAN CORPUSCULAR VOLUME 89 fL (79-100); MONO # 1.2 x10^3/uL (0.0-1.1); MONO % 6 % (0-9); NEUT # 18.6 x10^3uL (1.8-7.7); NEUT % 89 % (31-73); PLATELET COUNT 234 x10^3/uL (140-400); RED BLOOD COUNT 4.71 x10^6/uL (4.30-5.70); RED CELL DISTRIBUTION WIDTH 15.1 % (11.5-14.5)
[2021-02-28] MEDS: PANTOPRAZOLE IV 40 MG VIAL. IVP SCH (07:45)
[2021-02-28] MEDS: POTASSIUM CL 40MEQ D5-0.45NACL 1,000 ML IV SCH (07:47)
[2021-02-28 08:34] LABS: ALBUMIN 3.1 g/dL (3.4-5.0); ALBUMIN/GLOBULIN RATIO 0.9 (1.0-1.7); CREATININE 0.7 mg/dL (0.7-1.3); GFR 127.6; POTASSIUM 4.5 mmol/L (3.5-5.1); TOTAL BILIRUBIN 1.3 mg/dL (0.2-1.0); TOTAL PROTEIN 6.6 g/dL (6.4-8.2)
[2021-02-28 11:41] VITALS: BP 112/73
--- NOTE | 2021-02-28 13:23 | PN ---
DATE: 02/28/2021 SUBJECTIVE: The patient is resting, slightly propped up in bed, in no apparent distress. He continued to complain of abdominal pain, but no nausea, no vomiting. His serum lipase is down to 351, although his white cell count went up to 21,000. He did have low-grade fever this morning up to 100.2. PHYSICAL EXAMINATION: GENERAL: When I examined him this morning, there was no pallor, not jaundiced or cyanosed, no thyromegaly. No jugular venous distention. No lower limb edema. VITAL SIGNS: His heart rate was 100, blood pressure is 112/73, temperature was 97, respiratory rate was 18 and oxygen saturation was 95% on room air. HEAD, EYES, EARS, NOSE, AND THROAT: Normocephalic, atraumatic. NECK: Supple. HEART: Normal first and second heart sounds, no gallop, rub or murmur. CHEST: Clear to auscultation, no crepitation or rhonchi. ABDOMEN: Distended, soft, nontender. Had tenderness mostly in the epigastric and right upper quadrant. There is no guarding or rigidity. No organomegaly. All hernial orifices intact. Bowel sounds normal. NEUROLOGIC: He was awake, alert, responding appropriately. Cranial nerves intact. He moves extremities without difficulty. His intake over the last 24 hours was 1000, no output was recorded. LABORATORY DATA: As of this morning, his white cell count was 21,000, hemoglobin 14, hematocrit 42, MCV 89 and platelet count 234,000. His chemistry showed a serum sodium of 132, potassium 4.5, chloride 95, bicarbonate 28, anion gap of 9, BUN 6, creatinine 0.7. Estimated GFR was 127 mL per minute. His glucose 104, calcium was 9. Total bilirubin 1.3. His AST, ALT, alkaline phosphatase were normal. Total protein 6.6, albumin 3.1, serum lipase is down to 351. ASSESSMENT: 1. Acute on chronic pancreatitis. Currently, the patient has had an ERCP done on 02/23/2021 at [facility]. 2. Other medical problems include: A. Alcoholism. B. Nicotine dependence. C. Multiple abdominal abscesses requiring percutaneous drainage. 3. The patient has worsening fluid collection in the pelvic area between the stomach and the pancreas. PLAN: To continue with IV fluid, continue with pain medication. We will start him on a clear liquid diet and probably repeat his scan. DESEAN DR: Chrissy TID: [id number]
--- NOTE | 2021-02-28 13:44 | NUR ---
PATIENT IS TRANSFERRED TO [facility] FOR HIGHER LEVEL OF CARE, ONCOLOGY CONSULT. REPORT GIVEN TO DELBERT KEITH. PATIENT LEFT ROOM 111 VIA [facility].
[2021-02-28] MEDS: POTASSIUM CL 20MEQ IN 0.9%NACL 1,000 ML IV SCH (14:53)
[2021-02-28 16:15] VITALS: BP 107/70
[2021-02-28] MEDS ORDERED: fentaNYL 25MCG/HR 1 PATCH PATCH TD SCH (16:30)
[2021-02-28 19:53] VITALS: BP 109/76
[2021-02-28 22:57] VITALS: BP 113/73
[2021-03-01] MEDS: HYDROmorphone PF 2 MG/ML VIAL IVP PRN ×4 (00:45→07:51)
[2021-03-01] MEDS: POTASSIUM CL 20MEQ IN 0.9%NACL 1,000 ML IV SCH ×2 (00:45→09:01)
[2021-03-01] MEDS ORDERED: NICOTINE 21MG PATCH. TD PRN (05:00)
[2021-03-01] MEDS: ONDANSETRON PF 4 MG/2 ML VIAL. IVP PRN (05:26)
[2021-03-01] MEDS: PIPERACILLIN/TAZOBACTAM 3.375 GM in IV NORMAL SALINE 50ML 50 ML IV SCH ×2 (05:27→11:32)
[2021-03-01 06:02] VITALS: BP 111/74
[2021-03-01 06:52] LABS: CALCIUM 9.2 mg/dL (8.5-10.1); CREATININE 0.6 mg/dL (0.7-1.3); GFR 152.4; POTASSIUM 3.9 mmol/L (3.5-5.1)
[2021-03-01 06:58] LABS: BASO % 0 % (0-3); EOS # 0.4 x10^3/uL (0.0-0.7); EOS % 3 % (0-3); HEMATOCRIT 40.4 % (39.0-53.0); HEMOGLOBIN 13.2 g/dL (13.0-17.5); LYMPH # 0.9 x10^3/uL (1.0-4.8); LYMPH % 6 % (24-48); MEAN CORPUSCULAR HEMOGLOBIN 29 pg (25-35); MEAN CORPUSCULAR HGB CONC 33 g/dL (31-37); MEAN CORPUSCULAR VOLUME 90 fL (79-100); MONO # 0.9 x10^3/uL (0.0-1.1); MONO % 6 % (0-9); NEUT # 12.6 x10^3uL (1.8-7.7); NEUT % 85 % (31-73); PLATELET COUNT 216 x10^3/uL (140-400); RED BLOOD COUNT 4.49 x10^6/uL (4.30-5.70); RED CELL DISTRIBUTION WIDTH 15.1 % (11.5-14.5); WHITE BLOOD COUNT 14.8 x10^3/uL (4.0-11.0)
[2021-03-01] MEDS: PANTOPRAZOLE IV 40 MG VIAL. IVP SCH (07:51)
[2021-03-01] MEDS ORDERED: oxyCODONE/APAP 5/325 1 TAB TABLET PO PRN (08:30)
[2021-03-01 10:43] VITALS: BP 106/72
[2021-03-01] MEDS ORDERED: OXYC10TA PO (12:36)
[2021-03-01] MEDS ORDERED: AMOX1TAB61 PO (12:36)
[2021-03-01] MEDS ORDERED: MORP-15 PO (12:36)
--- NOTE | 2021-03-01 13:04 | NUR ---
PT DISCHARGED WITH DISCHARGE PAPERWORK AND BELONGINGS. PT AMBULATED TO THE FRONT WITH STAFF TO HIS RIDE.
--- NOTE | 2021-03-01 13:37 | DS ---
DATE OF DISCHARGE: 03/01/2021 HOSPITAL COURSE: The patient is a 36-year-old male patient with recurrent episode of pancreatitis. He has had an ERCP and stent deployed to his pancreatic duct as well as biliary duct on 02/23 and he presented to the Emergency Room on 02/26 with a complaint of severe abdominal pain that is sharp in nature, 8/10 in severity with nausea. Denied any alcohol ingestion. Denied any recent trauma, travel illness or other complaints. He was extensively investigated and has had lab work and imaging studies. His lab work showed that his white cell count was slightly elevated. His chemistry was mostly unremarkable except for serum lipase of [address] did [address] scan of the abdomen and pelvis, which showed that he has a coarse calcification of the head of the pancreas with adjacent changes that may represent nabyf-wd-qredrrv pancreatitis. There is associated inflammation involving the second and third part of the duodenum, but no bowel obstruction. There is no pericolonic inflammation. Appendix appears absent. Kidneys are relatively symmetric in appearance. There were no suspicious renal masses within the limitation of noncontrast examination. No hydronephrosis and no calculi within the kidneys, ureters or in the bladder. The patient was admitted with kdwkt-mn-ikiihmy pancreatitis, kept n.p.o., started on IV fluid, pain medication, antiemetic. Initially, his serum lipase has worsened and peaked at 1325. His white cell count has dramatically risen next day at 19 and went up to 21,000. We did repeat a CT scan of the abdomen and pelvis with IV contrast, which showed that the patient has vqpoo-zd-nhurfzh pancreatitis with developing peripancreatic inflammatory changes, possible uncinate fluid collection, pelvic free fluid, pericholecystic free fluid and an encapsulated-appearing fluid collection between the stomach and transverse colon. I did speak with the transfer center at [facility] and the transformation lead recommended conservative treatment with IV fluid, pain medication and n.p.o. I also recommended starting him on IV antibiotic and we did start him on IV Zosyn. The patient did actually very well, has had no more pain, no nausea, no vomiting. He is afebrile. His white cell count is down and he expressed desire to go home and therefore, the patient was discharged home with a plan to follow with his primary care physician as well as his gastroenterology team at [facility]. PHYSICAL EXAMINATION: GENERAL: When I examined him this morning, he was sitting comfortably in his bed, in no apparent respiratory distress, eating his lunch without difficulty and there was no pallor, jaundice, cyanosis or thyromegaly. No jugular venous distention. No limb edema. VITAL SIGNS: His heart rate was 97, blood pressure was 106/72, temperature was 98.5, respiratory rate was 16 and oxygen saturation was 96% on room air. HEAD, EYES, EARS, NOSE AND THROAT: Normocephalic, atraumatic. NECK: Supple. HEART: Normal first and second heart sounds. No gallop or murmur. CHEST: Clear to auscultation, no crepitation or rhonchi. ABDOMEN: Distended with mild tenderness in the epigastric area. No guarding or rigidity. No organomegaly. All hernial orifices intact. Bowel sounds normal. NEUROLOGIC: He was awake, alert, responding appropriately. All cranial nerves intact. He moves extremities without difficulty, ambulates without assistance or assistive devices. LABORATORY DATA: This morning showed a serum sodium 134, potassium 3.9, chloride 97, bicarbonate 29, anion gap of 8, BUN 7, creatinine 0.6. Estimated GFR was 152 mL per minute. His glucose was 94, calcium was 9.2. Serum lipase was down to 151. His white cell count is down to 14,800, hemoglobin 13, hematocrit 40, MCV 90 and platelet count 216,000 with normal manual differential. Urinalysis essentially unremarkable. His coronavirus PCR was negative. DISCHARGE INSTRUCTIONS: The patient will be discharged home to continue on Augmentin 875/125 mg twice a day for 7 more days, morphine sulfate extended release 15 mg twice a day, oxycodone immediate release 10 mg every 4 hours as needed. Should continue on all his other home medications as listed in his discharge summary and should follow with his primary care physician with a strict instruction to come to the Emergency Room should he have any further worsening of his pain or fever or recurrent bouts of nausea, vomiting. I also obviously warned him about drinking any alcohol given that he has had this recurrent episode of acute pancreatitis, started initially with alcohol consumption. GENTRY NERI: Chrissy TID: [id number]
== END 2021-03-01 13:06 | disposition home or self-care (01) | DRG 438 ==
LOC: ER 03:58 → 1 SOUTH 07:42
PROVIDERS: ADMIT Internal Medicine; ATTEND Internal Medicine
DX: K85.90 Acute pancreatitis without necrosis or infection, unspecified (principal); R65.11 Systemic inflammatory response syndrome (SIRS) of non-infectious origin with acute organ dysfunction; F32.A Depression, unspecified; F41.9 Anxiety disorder, unspecified; F17.200 Nicotine dependence, unspecified, uncomplicated; F12.90 Cannabis use, unspecified, uncomplicated; F10.20 Alcohol dependence, uncomplicated; K86.1 Other chronic pancreatitis; Z20.822 Contact with and (suspected) exposure to COVID-19
CPT/HCPCS: 36415; 74176; 74177; 80048; 80053; 81001; 83615; 83690; 85007; 85025; 87426; 96361; 96374; C9113; J1170; J2060; J2270; J2405; J2543; J7042; J7120; Q9967; U0003; 99285-25; J7030

== ENCOUNTER 2021-03-25 12:12 | Emergency (ER) | payer MEDICAID ==
[~2021-03-25] VITALS: Ht 175.3 cm; Wt 70.2 kg
[2021-03-25 12:12] VITALS: BP 140/72
[~2021-03-25 12:12] MED LIST changes: +ACET325T9 PO; +AMOX1TAB61 PO; +CALC300T5 PO; +DICL20GE TP; +DIPH25CA58 PO; +FLUO40CA9 PO; +FOLI0.8C PO; +GABA600T7 PO; +GABA800T5 PO; +HYDR50TA PO; +LIDO700A21 TP; +LIPA1CAP6 PO; +MELA1TAB44 PO; +MORP-15 PO; +MORP15TA PO; +NICO1PAT21 TP; +ONDA4TAB7 PO; +OXYC10TA PO; +OXYC5CAP PO; +PANT20TA58 PO; +POLY17PO5 PO; +PRAZ1CAP2 PO; +PROC10TA57 PO; +THIA100T22 PO; +TRAZ-120 PO; +TRAZ150T49 PO; +VELVET GLOVE
--- NOTE | 2021-03-25 12:56 | PHYS DOC ---
Past History Past Medical History: Alcoholism, Anxiety, Depression, Pancreatitis Additional Past Medical Histor: chronic pancreatitis Past Surgical History: Other Additional Past Surgical Histo: ERCP, colonoscopies; stents and drains Smoking: Cigarettes Alcohol Use: Heavy Drug Use: Marijuana General Adult EDM: Chief Complaint: ABDOMINAL PAIN HPI: HPI: Patient is a [age]Y male coming in for concerns for a hardened blood vessel on his right forearm. PC noticed yesterday but is not painful. Concerned because he was in [facility] about 1 month ago had multiple IVs and a PICC line. Patient is also complaining of worsening abdominal pain has a history of chronic pancreatitis. Family history of factor V Leiden, no personal history of blood clots Review of Systems: Review of Systems: All other systems within normal limits except for as noted in the HPI Allergies: Allergies: Allergies Coded Allergies Type Severity Reaction Last Updated Verified adhesive Allergy Intermediate 01/08/21 Yes No Known Allergies Allergy Unknown 02/04/20 Yes Physical Exam: PE: Constitutional: Well developed, well nourished, no acute distress, non-toxic appearance. [] HENT: Normocephalic, atraumatic, bilateral external ears normal, nose normal. [] Eyes: PERRLA, conjunctiva normal, no discharge. [] Neck: No rigidity, supple, no stridor. Firm cord like area on right forearm [] Cardiovascular: Regular rate and rhythm, brisk cap refill [] Lungs & Thorax: Non labored symmetric respirations, no tachypnea or respiratory distress [] Abdomen: Soft, nondistended. Skin: Warm, dry, no erythema, no rash. [] Back: Unremarkable Extremities: No deformities, range of motion grossly intact, no lower extremity edema [] Neurologic: Alert and oriented X 3, no focal deficits noted. [] Psychologic: Affect normal, judgement normal, mood normal. [] Current Patient Data: Vital Signs: Vital Signs Date Time Temp Pulse Resp B/P (MAP) Pulse Ox O2 Delivery O2 Flow Rate FiO2 03/25/21 12:12 97.8 83 16 140/72 (94) 97 Room Air EKG: EKG: [] Radiology/Procedures: Radiology/Procedures: [][address] [address] IMAGING REPORT Signed PATIENT: MICHELLE VILLEDA EACCOUNT: [id number] : 1985 LOCATION: ER AGE: 36 SEX: M EXAM STATUS: REG ER ORD. PHYSICIAN: SALLIE MCGOWAN MD REASON: hard vein in arm PROCEDURE: VENOUS UPPER EXTREMITY RIGHT EXAM: Right upper extremity venous Doppler sonogram. HISTORY: Pain. Hard vein and arm. TECHNIQUE: Tobar scale and color Doppler sonographic evaluation of the right upper extremity veins with spectral waveform analysis was performed. FINDINGS: There is segmental superficial venous thrombosis within a forearm vein, possibly due to a varicose vein. There is normal color flow, normal compressibility and there are normal spectral waveforms in the remainder of the upper extremity veins. IMPRESSION: 1. Segmental superficial venous thrombosis within a forearm vein at the site of palpable concern. This may be a varicose vein. 2. No Doppler evidence of deep venous thrombosis. Electronically signed by: Natalie Fraga MD (03/25/2021 2:27 PM) [id number] DICTATED AND SIGNED BY: NATALIE FRAGA MD DATE: 03/25/211425 CC: SALLIE MCGOWAN MD; CHI BRUMFIELD MD ~MTH0 0 Heart Score: C/O Chest Pain: No Risk Factors: Risk Factors: DM, Current or recent (<one month) smoker, HTN, HLP, family history of CAD, obesity. Risk Scores: Score 0 - 3: 2.5% MACE over next 6 weeks - Discharge Home Score 4 - 6: 20.3% MACE over next 6 weeks - Admit for Clinical Observation Score 7 - 10: 72.7% MACE over next 6 weeks - Early Invasive Strategies Course & Med Decision Making: Course & Med Decision Making Pertinent Labs and Imaging studies reviewed. (See chart for details) [] Dragon Disclaimer: Dragon Disclaimer: This electronic medical record was generated, in whole or in part, using a voice recognition dictation system. Departure Departure: Impression: Primary Impression: Abdominal pain Additional Impression: Superficial venous thrombosis of right arm Disposition: 01 HOME / SELF CARE / HOMELESS Condition: STABLE Referrals: CHI BRUMFIELD MD (PCP) Patient Instructions: Varicose Veins Additional Instructions: Use NSAIDs 3 times a day, warm compresses and compression until blood clot resolves. Scripts Ibuprofen (IBUPROFEN) 800 Mg Tablet 1 TAB PO TID for pain, #30 TAB Prov: SALLIE MCGOWAN MD 03/25/21 SALLIE MCGOWAN MD Mar 25, 2021 12:56
[2021-03-25 13:12] LABS: BASO # 0.1 x10^3/uL (0.0-0.2); BASO % 1 % (0-3); EOS # 0.3 x10^3/uL (0.0-0.7); EOS % 3 % (0-3); HEMATOCRIT 45.6 % (39.0-53.0); HEMOGLOBIN 15.4 g/dL (13.0-17.5); LYMPH # 1.3 x10^3/uL (1.0-4.8); LYMPH % 13 % (24-48); MEAN CORPUSCULAR HEMOGLOBIN 30 pg (25-35); MEAN CORPUSCULAR HGB CONC 34 g/dL (31-37); MEAN CORPUSCULAR VOLUME 88 fL (79-100); MONO # 0.5 x10^3/uL (0.0-1.1); MONO % 5 % (0-9); NEUT # 7.7 x10^3uL (1.8-7.7); NEUT % 79 % (31-73); PLATELET COUNT 327 x10^3/uL (140-400); RED BLOOD COUNT 5.17 x10^6/uL (4.30-5.70); RED CELL DISTRIBUTION WIDTH 15.4 % (11.5-14.5); WHITE BLOOD COUNT 9.8 x10^3/uL (4.0-11.0)
[2021-03-25 13:24] LABS: CLARITY,URINE CLOUDY; COLOR,URINE AMBER
[2021-03-25 13:24] LABS: AMPHETAMINE/METHAMPHETAMINE NEG (NEG); BARBITURATES NEG (NEG); BENZODIAZEPINES NEG (NEG); CANNABINOIDS POS (NEG); COCAINE NEG (NEG); METHADONE NEG (NEG); OPIATES POS (NEG); PHENCYCLIDINE NEG (NEG)
[2021-03-25 13:25] LABS: BACTERIA,URINE FEW /HPF (0-FEW); BILIRUBIN,URINE SMALL (NEG); GLUCOSE,URINE NEG (NEG); NITRITE,URINE NEG (NEG); RBC,URINE 0 /HPF (0-2); WBC,URINE OCC /HPF (0-4)
[2021-03-25 13:26] LABS: AMORPHOUS SEDIMENT,UR PRESENT /HPF
[2021-03-25 13:26] LABS: CALCIUM 9.4 mg/dL (8.5-10.1); CREATININE 0.8 mg/dL (0.7-1.3); GFR 109.4; POTASSIUM 4.2 mmol/L (3.5-5.1)
[2021-03-25 13:28] LABS: ALBUMIN 4.1 g/dL (3.4-5.0); ALBUMIN/GLOBULIN RATIO 1.3 (1.0-1.7); TOTAL BILIRUBIN 0.4 mg/dL (0.2-1.0); TOTAL PROTEIN 7.2 g/dL (6.4-8.2)
[2021-03-25] MEDS ORDERED: KETOROLAC 30 MG/ML VIAL. ONE ×2 (13:41→15:09)
[2021-03-25] MEDS ORDERED: ONDANSETRON PF 4 MG/2 ML VIAL. ONE (13:41)
[2021-03-25] MEDS ORDERED: ONDANSETRON PF 4 MG/2 ML VIAL. IVP ONE (13:45)
[2021-03-25] MEDS ORDERED: KETOROLAC 15 MG/ML VIAL. IVP ONE ×2 (13:45→14:45)
[2021-03-25] MEDS ORDERED: KETOROLAC 30 MG/ML VIAL. IVP ONE ×2 (14:15→15:15)
--- NOTE | 2021-03-25 14:29 | RAD ---
EXAM: Right upper extremity venous Doppler sonogram. HISTORY: Pain. Hard vein and arm. TECHNIQUE: Tobar scale and color Doppler sonographic evaluation of the right upper extremity veins wit h spectral waveform analysis was performed. FINDINGS: There is segmental superficial venous thrombosis within a forearm vein, possibly due to a v aricose vein. There is normal color flow, normal compressibility and there are normal spectral wavefo kevin in the remainder of the upper extremity veins. IMPRESSION: 1. Segmental superficial venous thrombosis within a forearm vein at the site of palpable concern. Thi s may be a varicose vein. 2. No Doppler evidence of deep venous thrombosis. Electronically signed by: Natalie Villanueva MD (03/25/2021 2:27 PM) [id number]
[2021-03-25] MEDS ORDERED: IBUP800T19 PO (14:59)
== END 2021-03-25 15:16 | disposition home or self-care (01) ==
LOC: ER 12:12
DX: R10.9 Unspecified abdominal pain (principal); I82.890 Acute embolism and thrombosis of other specified veins; F17.210 Nicotine dependence, cigarettes, uncomplicated; F12.10 Cannabis abuse, uncomplicated
CPT/HCPCS: 36415; 80053; 80307; 81001; 83690; 85025; 93971; 96374; 96375; 96376; 99284; G0480; J1885; J2405

== ENCOUNTER 2021-03-31 17:13 | Inpatient (IN) | payer MEDICAID ==
[~2021-03-31] VITALS: Ht 175.3 cm; Wt 67.9 kg
[~2021-03-31 17:13] MED LIST changes: +IBUP800T19 PO; +MORP-62 PO; -MORP15TA PO
--- NOTE | 2021-03-31 18:42 | PHYS DOC ---
Past History Past Medical History: Alcoholism, Anxiety, Depression, Pancreatitis Additional Past Medical Histor: chronic pancreatitis Past Surgical History: Other Additional Past Surgical Histo: ERCP, colonoscopies; stents and drains Smoking: Cigarettes Alcohol Use: Sober Additional Alcohol Information: SOBER SINCE Drug Use: Marijuana Adult General Chief Complaint Chief Complaint: ABDOMINAL PAIN HPI HPI Patient is a 36-year-old male with past medical history of alcoholic pancreatiti s presents with epigastric pain, decreased appetite and nausea since this morning. States that last drink was last week Thanks. Denies any recent traumas, travels, fever, chest pain, shortness of breath, dysuria, hematuria, diarrhea or blood in the stool. Denies any known ill contacts. States he took his nausea medicine at home and his morphine tablets which gave minimal relief. Review of Systems Review of Systems Review of systems otherwise unremarkable except noted in HPI Allergies Allergies Allergies Coded Allergies Type Severity Reaction Last Updated Verified adhesive Allergy Intermediate 03/31/21 Yes No Known Allergies Allergy Unknown 02/04/20 Yes Physical Exam Physical Exam Constitutional: Well developed, well nourished, no acute distress, non-toxic appearance. [] HENT: Normocephalic, atraumatic, bilateral external ears normal, oropharynx moist, no oral exudates, nose normal. [] Eyes: conjunctiva normal, no discharge. [] Neck: Normal range of motion, no tenderness, supple, no stridor. [] Cardiovascular:Heart rate regular rhythm, no murmur [] Lungs & Thorax: Bilateral breath sounds clear to auscultation [] Abdomen: soft, no tenderness, no masses, no pulsatile masses. [] Skin: Warm, dry, no erythema, no rash. [] Back: no CVA tenderness. [] Extremities: No tenderness, no cyanosis, no clubbing, ROM intact, no edema. [] Neurologic: Alert and oriented X 3, normal motor function, normal sensory function, no focal deficits noted. [] Psychologic: Affect normal, judgement normal, mood normal. [] Current Patient Data Vital Signs Vital Signs Date Time Temp Pulse Resp B/P (MAP) Pulse Ox O2 Delivery O2 Flow Rate FiO2 03/31/21 18:10 98.4 127 18 155/74 (101) 98 EKG EKG [] Radiology/Procedures Radiology/Procedures [] Heart Score C/O Chest Pain: No Risk Factors: Risk Factors: DM, Current or recent (<one month) smoker, HTN, HLP, family history of CAD, obesity. Risk Scores: Risk Factors: DM, Current or recent (<one month) smoker, HTN, HLP, family history of CAD, obesity. Course & Med Decision Making Course & Med Decision Making Patient is a 36-year-old male who presents with epigastric pain Vital signs notable for tachycardia. Physical exam noted above. Patient placed on the monitor with IV access established and IV fluid started. Given nausea medicine. Given pain medicine. Laboratory analysis notable for leukocytosis and mildly elevated lipase. CT with acute on chronic pancreatitis with a small amount of intraperitoneal fluid. Patient continued on IV fluids, nausea and pain medicine. Given Rocephin. Admitted to [facility] for acute on chronic pancreatitis. Discussed all findings with patient who verbalized understanding and agreed with plan of admis deon. [] Dragon Disclaimer Dragon Disclaimer This electronic medical record was generated, in whole or in part, using a voice recognition dictation system. Departure Departure: Impression: Primary Impression: Abdominal pain Additional Impressions: Alcohol abuse Acute on chronic pancreatitis Intra-abdominal infection Disposition: ADMITTED INPATIENT Admitting Physician: Marci Vega Condition: STABLE Referrals: CHI BRUMFIELD MD (PCP) Problem Qualifiers MINGO JIMENEZ MD Mar 31, 2021 18:41
[2021-03-31] MEDS ORDERED: ONDANSETRON PF 4 MG/2 ML VIAL. IVP ONE (18:45)
[2021-03-31] MEDS ORDERED: MORPHINE SULFATE 4 MG/ML DISP.SYRIN. IV ONE ×2 (18:45→20:30)
[2021-03-31] MEDS ORDERED: IOHEXOL 300 MG/ML 75 ML VIAL. IV ONE (18:45)
[2021-03-31] MEDS ORDERED: IV RINGERS SOLUTION,LACTATED 1,000 ML IV ONE ×2 (19:00→20:30)
[2021-03-31 19:29] LABS: BASO % 0 % (0-3); EOS # 0.2 x10^3/uL (0.0-0.7); EOS % 1 % (0-3); HEMATOCRIT 49.1 % (39.0-53.0); HEMOGLOBIN 16.3 g/dL (13.0-17.5); LYMPH % 6 % (24-48); MEAN CORPUSCULAR HEMOGLOBIN 29 pg (25-35); MEAN CORPUSCULAR HGB CONC 33 g/dL (31-37); MEAN CORPUSCULAR VOLUME 89 fL (79-100); MONO # 0.5 x10^3/uL (0.0-1.1); MONO % 3 % (0-9); NEUT # 14.8 x10^3uL (1.8-7.7); NEUT % 90 % (31-73); PLATELET COUNT 259 x10^3/uL (140-400); RED BLOOD COUNT 5.54 x10^6/uL (4.30-5.70); RED CELL DISTRIBUTION WIDTH 16.2 % (11.5-14.5); WHITE BLOOD COUNT 16.5 x10^3/uL (4.0-11.0)
--- NOTE | 2021-03-31 19:40 | RAD ---
Exam: CT of abdomen and pelvis with contrast INDICATION: Epigastric pain TECHNIQUE: Sequential axial images through the abdomen and pelvis obtained following the administrati on of 74 mm of Isovue-370 IV contrast. Sagittal and coronal reformatted images were reconstructed fro m the axial data and reviewed. Exposure: One or more of the following in the visualized dose reduction techniques were utilized for this examination: 1. Automated exposure control 2. Adjustment of the MA and/or KV according to patient size 3. Use of iterative of reconstructive technique Comparisons: 02/27/2021 FINDINGS: Heart size is normal. No pericardial effusion. Visualized lung bases are clear. No pleural effusion. Mild pneumobilia is noted. Spleen, and adrenals are unremarkable. Gallbladder is nondilated. There is a metallic common bile duct stent noted. Extensive inflammatory changes noted surrounding th e pancreatic head with mild pancreatic ductal dilatation. No discrete fluid collection is identified. Kidneys a straight symmetric enhancement. No perinephric inflammation or hydronephrosis. No renal or ureteral calculi are identified. Bladder is decompressed not well evaluated. Prostate is not enlarged. Large and small bowel are unremarkable. Appendix is not identified. No free intra-abdominal air. Ther e is trace amount of free fluid noted probably at the right paracolic gutter. Abdominal aorta has a normal course and caliber. Abdominal vasculature is patent. No enlarged abdominal lymph nodes are identified. No suspicious osseous lesions or acute fractures. IMPRESSION: Findings of extensive acute on chronic pancreatitis surrounding the pancreatic head with inflammatory changes and free fluid noted extending into the right paracolic gutter. No peripancreatic fluid gilbert ection is seen. Electronically signed by: Shyanne Blevins MD (03/31/2021 7:37 PM) [facility]
[2021-03-31 19:44] LABS: CALCIUM 9.3 mg/dL (8.5-10.1); GFR 84.5; POTASSIUM 3.8 mmol/L (3.5-5.1)
[2021-03-31 19:50] LABS: ALBUMIN 3.7 g/dL (3.4-5.0); ALBUMIN/GLOBULIN RATIO 1.1 (1.0-1.7); TOTAL BILIRUBIN 0.8 mg/dL (0.2-1.0); TOTAL PROTEIN 7.2 g/dL (6.4-8.2)
[2021-03-31 20:17] LABS: % BANDS 1 % (0-9); % EOS 2 % (0-5); % LYMPHS 8 % (24-48); % MONOS 4 % (0-10); % SEGS 85 % (35-66)
[2021-03-31 20:18] LABS: PLT ESTIMATE ADEQUATE (ADEQUATE)
[2021-03-31] MEDS ORDERED: MORPHINE SULFATE 2 MG/ML DISP.SYRIN. IVP PRN (20:30)
[2021-03-31 20:44] LABS: CLARITY,URINE CLEAR; COLOR,URINE YELLOW; GLUCOSE,URINE NEG (NEG)
[2021-03-31 20:45] LABS: BACTERIA,URINE FEW /HPF (0-FEW); BILIRUBIN,URINE SMALL (NEG); NITRITE,URINE NEG (NEG); RBC,URINE 0 /HPF (0-2); UROBILINOGEN,URINE 0.2 mg/dL (0.2 mg/dL)
[2021-03-31] MEDS ORDERED: cefTRIAXone SODIUM 1 GM VIAL ONE (21:07)
[2021-03-31] MEDS ORDERED: IV NORMAL SALINE 50ML 50 ML ONE (21:07)
[2021-03-31] MEDS: ONDANSETRON PF 4 MG/2 ML VIAL. IVP PRN (21:13)
[2021-03-31] MEDS ORDERED: METOCLOPRAMIDE HCL 10 MG/2 ML VIAL. IVP ONE (21:15)
[2021-03-31] MEDS ORDERED: OXYC5TAB4 PO (23:22)
[2021-03-31] MEDS ORDERED: NICO4LOZ93 PO (23:24)
[2021-04-01 00:28] VITALS: BP 123/88
[2021-04-01] MEDS: MORPHINE SULFATE 4 MG/ML DISP.SYRIN. IV PRN ×3 (01:03→09:40)
[2021-04-01] MEDS: ONDANSETRON PF 4 MG/2 ML VIAL. IVP PRN ×5 (01:04→19:46)
[2021-04-01 05:55] VITALS: BP 119/77
[2021-04-01 08:10] LABS: CALCIUM 8.6 mg/dL (8.5-10.1); CREATININE 0.7 mg/dL (0.7-1.3); GFR 127.6; POTASSIUM 4.4 mmol/L (3.5-5.1)
[2021-04-01] MEDS ORDERED: FLU VACC QUAD 21-22 (6MOS+) PF 0.5 ML SYRINGE. VAX IM ONE (09:00)
[2021-04-01] MEDS: NON FORMULARY ITEM PO PRN ×4 (09:13→21:45)
[2021-04-01] MEDS: POTASSIUM CL 20MEQ D5-0.45NACL 1,000 ML IV SCH ×3 (09:14→19:47)
[2021-04-01 10:41] VITALS: BP 117/80
[2021-04-01 11:01] LABS: BASO % 0 % (0-3); EOS # 0.3 x10^3/uL (0.0-0.7); EOS % 3 % (0-3); HEMATOCRIT 44.5 % (39.0-53.0); HEMOGLOBIN 14.7 g/dL (13.0-17.5); LYMPH % 8 % (24-48); MEAN CORPUSCULAR HEMOGLOBIN 29 pg (25-35); MEAN CORPUSCULAR HGB CONC 33 g/dL (31-37); MEAN CORPUSCULAR VOLUME 89 fL (79-100); MONO # 0.6 x10^3/uL (0.0-1.1); MONO % 5 % (0-9); NEUT # 11.6 x10^3uL (1.8-7.7); NEUT % 85 % (31-73); PLATELET COUNT 166 x10^3/uL (140-400); RED CELL DISTRIBUTION WIDTH 16.2 % (11.5-14.5); WHITE BLOOD COUNT 13.6 x10^3/uL (4.0-11.0)
[2021-04-01 12:31] LABS: PLATELET CLUMP PRESENT
[2021-04-01 12:32] LABS: PLT ESTIMATE ADEQUATE (ADEQUATE)
[2021-04-01] MEDS: HYDROmorphone PF 2 MG/ML VIAL IVP PRN ×4 (13:30→23:01)
--- NOTE | 2021-04-01 14:13 | HP ---
DATE OF SERVICE: 04/01/2021 ADMIT DATE: 03/31/2021 HISTORY OF PRESENT ILLNESS: The patient is a 36-year-old male patient who yet again came into the Emergency Room complaining of abdominal pain in the epigastric area with decreased appetite and nausea since yesterday morning. His last drink was last week on Thanksgiving. He denied any recent trauma, travel, fever, chest pain, shortness of breath. He was again extensively investigated in the Emergency Room, has had lab work and imaging studies. His initial lab work showed that his white cell count was 16,500, hemoglobin was 16, hematocrit 49 with normal platelet count. His chemistry was remarkable for elevated serum lipase up to 695. The patient was admitted with acute on chronic alcoholic pancreatitis. His CT scan also showed that the patient has a metallic stent in his common bile duct together with extensive inflammatory changes noted around the pancreatic head and mild pancreatic duct dilatation. No discrete fluid collection is identified. The conclusion is the patient has finding of extensive jcupm-uc-eifquqg pancreatitis surrounding the pancreatic head with the inflammatory changes and free fluid noted extending into the right paracolic gutter. No peripancreatic fluid collection is seen. The patient was started on IV fluid, kept n.p.o., started on IV antibiotic as well as pain medication, antiemetic. PAST MEDICAL HISTORY: Significant for recurrent chronic pancreatitis, alcoholism and nicotine dependence, multiple abdominal abscesses that required percutaneous drainage. PAST SURGICAL HISTORY: Significant for esophagogastroduodenoscopy, colonoscopy. He had ERCP about 4 times. He has also stents in his common bile duct and also a stent in his pancreatic duct. He also has multiple percutaneous drainage of abdominal abscesses and appendectomy. ALLERGIES: He has no known drug allergies. MEDICATIONS: He is currently on the following medications: Nicotine lozenges one every 2 hours, prazosin 1 mg at bedtime, ibuprofen 800 mg 3 times a day, morphine sulfate 15 mg twice a day. He is also on oxycodone immediate release 10 mg twice a day, acetaminophen 1000 mg every 6 hours, gabapentin 600 mg twice a day, gabapentin 900 mg at bedtime. He is on fluoxetine 40 mg daily, trazodone 25 mg daily and trazodone 150 mg at bedtime, hydroxyzine 50 mg 3 times a day, calcium carbonate 500 mg every 6 hours, polyethylene glycol 17 grams daily, and he is also on Creon one capsule 3 times a day before meals. He is on Compazine 10 mg every 6 hours, ondansetron 4 mg every 6 hours, Protonix 20 mg once a day and folic acid 800 mcg once a day, thiamine nitrate 100 mg once a day and melatonin 1 mg once a day. FAMILY HISTORY: Both parents are alive in their 50s and have no medical problems. SOCIAL HISTORY: He is , from his , has a daughter and a son. He smokes 2 packs a day, quit drinking about a month ago, although he continued to drink socially. According to him, the last drink was last Thanksgiving. He continued to use marijuana. 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 PHYSICAL EXAMINATION: GENERAL: On arrival to the Emergency Room, he was slightly tachycardic, but there was no pallor, jaundice, or cyanosis. No lymphadenopathy, no thyromegaly, no jugular venous distention. No lower limb edema. VITAL SIGNS: His heart rate was 127, blood pressure is 155/74, temperature was 98.4, respiratory rate was 18 and oxygen saturation was 98% on room air. HEAD, EYES, EARS, NOSE, AND THROAT: Normocephalic, atraumatic. NECK: Supple. HEART: Showed normal first and second heart sounds. No gallop, rub or murmur. CHEST: Clear to auscultation, no crepitation or rhonchi. ABDOMEN: Distended, soft, nontender and has some tenderness mostly in the epigastric area. There is no guarding or rigidity. No organomegaly. All hernial orifices intact. Bowel sounds normal. NEUROLOGIC: He was awake, alert, responding appropriately. Cranial nerves intact. He moves extremities without difficulty. He ambulates without assistance or assistive devices. LABORATORY DATA: Showed a white cell count of 16,500, hemoglobin 16, hematocrit 49, MCV 89 and platelet count of 259,000 with normal manual differential. Serum sodium was 139, potassium 3.8, chloride 96, bicarbonate 33, anion gap of 10, BUN 11, creatinine 1, estimated GFR was 84 mL per minute. His glucose 127, calcium was 9.3. Total bilirubin, AST, ALT were normal. Alkaline phosphatase slightly elevated. Total protein 7.2, albumin 3.7. Serum lipase was 695. His urinalysis was essentially unremarkable. His CT scan of the abdomen and pelvis with IV contrast showed that the patient has finding of extensive fueby-ev-kyouhuu pancreatitis surrounding the pancreatic head with the inflammatory changes and free fluid noted extending into the right paracolic gutter. No peripancreatic fluid collection. ASSESSMENT AND PLAN: The patient was admitted with acute on chronic alcohol-induced pancreatitis, continued alcohol abuse, possible intraabdominal infection. The patient was started on IV fluid, IV antibiotic, IV pain medication. We will continue to obviously keep him n.p.o. until his pain has somewhat subsided and we can start him on clear liquid diet and advance as tolerated. He claims that he has an appointment to follow with his environmental engineering manager for celiac axis block in the middle of March and again another appointment to review of his stents in April. DESEAN DR: Chrissy TID: [id number]
[2021-04-01 14:45] VITALS: BP 115/75
--- NOTE | 2021-04-01 19:51 | PN ---
DATE: 04/01/2021 SUBJECTIVE: The patient is resting, slightly propped up, continued to complain of intractable abdominal pain and nausea, but no vomiting. Denied any chills, rigors or fever. PHYSICAL EXAMINATION: GENERAL: When I examined him, he looked well and was clearly in no apparent respiratory distress. No pallor, jaundice, cyanosis or thyromegaly. No jugular venous distention. No limb edema. VITAL SIGNS: His heart rate was 86, blood pressure was 117/80, temperature was 98.8, respiratory rate was 20 and oxygen saturation was 93%. HEAD, EYES, EARS, NOSE, AND THROAT: Normocephalic, atraumatic. NECK: Supple. HEART: Showed normal first and second heart sounds. No gallop, rub or murmur. CHEST: Clear to auscultation, no crepitation or rhonchi. ABDOMEN: Distended with tenderness mostly in the epigastric area. No guarding or rigidity. No organomegaly. All hernial orifice intact. Bowel sounds normal. NEUROLOGIC: He was grossly intact. LABORATORY DATA: This morning showed white cell count of 13,600, hemoglobin 14.7, hematocrit 44, MCV 89 and platelet count of 166,000 with a manual differential showed 85% polymorphs, 8% lymphocytes, 5% monocytes. His chemistry showed a serum sodium 135, potassium 4.4, chloride 99, bicarbonate 27, anion gap of 9, BUN 9, creatinine 0.7. Estimated GFR was 127 mL per minute. His serum lipase was 175. ASSESSMENT: 1. Acute on chronic alcoholic pancreatitis. 2. Questionable intra-abdominal infection. 3. Alcohol abuse. 4. Marijuana abuse. 5. Nicotine dependence. PLAN: To continue with IV fluid. Switch his medication to hydromorphone 2 mg IV every 3 hours. Continue with antiemetic and IV antibiotic. Once he is able to eat and drink, we will decide the further management accordingly. MANOHAR/EKT DR: MANOHAR/neal TID: [id number]
[2021-04-01 20:08] VITALS: BP 115/79
[2021-04-02 00:33] VITALS: BP 113/71
[2021-04-02] MEDS: NON FORMULARY ITEM PO PRN ×2 (01:30→03:55)
[2021-04-02] MEDS: HYDROmorphone PF 2 MG/ML VIAL IVP PRN ×5 (01:54→15:21)
[2021-04-02] MEDS ORDERED: ONDANSETRON PF 4 MG/2 ML VIAL. IVP PRN (02:00)
[2021-04-02] MEDS ORDERED: LORazepam INTENSOL 2 MG/ML BOTTLE SL ONE (04:30)
[2021-04-02 05:00] VITALS: BP 108/74
[2021-04-02] MEDS ORDERED: LORazepam 0.5 MG TABLET PO ONE (05:00)
[2021-04-02] MEDS: POTASSIUM CL 20MEQ D5-0.45NACL 1,000 ML IV SCH ×2 (05:15→15:21)
[2021-04-02] MEDS: LACTOBACILLUS RHAMNOSUS GG 1 CAPSULE. PO SCH ×2 (08:16→20:55)
[2021-04-02 08:23] LABS: BASO % 1 % (0-3); EOS # 0.5 x10^3/uL (0.0-0.7); EOS % 5 % (0-3); HEMATOCRIT 43.3 % (39.0-53.0); HEMOGLOBIN 13.7 g/dL (13.0-17.5); LYMPH # 0.9 x10^3/uL (1.0-4.8); LYMPH % 8 % (24-48); MEAN CORPUSCULAR HEMOGLOBIN 29 pg (25-35); MEAN CORPUSCULAR HGB CONC 32 g/dL (31-37); MEAN CORPUSCULAR VOLUME 93 fL (79-100); MONO # 0.7 x10^3/uL (0.0-1.1); MONO % 7 % (0-9); NEUT % 79 % (31-73); PLATELET COUNT 153 x10^3/uL (140-400); RED BLOOD COUNT 4.67 x10^6/uL (4.30-5.70); RED CELL DISTRIBUTION WIDTH 15.7 % (11.5-14.5); WHITE BLOOD COUNT 10.1 x10^3/uL (4.0-11.0)
[2021-04-02 08:35] LABS: ALBUMIN 2.9 g/dL (3.4-5.0); ALBUMIN/GLOBULIN RATIO 0.9 (1.0-1.7); CALCIUM 8.3 mg/dL (8.5-10.1); CREATININE 0.6 mg/dL (0.7-1.3); GFR 152.4; POTASSIUM 3.9 mmol/L (3.5-5.1); TOTAL BILIRUBIN 0.5 mg/dL (0.2-1.0); TOTAL PROTEIN 6.2 g/dL (6.4-8.2)
[2021-04-02] MEDS ORDERED: FLU VACC QUAD 21-22 (6MOS+) PF 0.5 ML SYRINGE. VAX IM ONE (09:00)
[2021-04-02] MEDS ORDERED: POLYETHYLENE GLYCOL 3350 17 GM PACKET. PO PRN (10:45)
[2021-04-02] MEDS ORDERED: CALCIUM CARBONATE 500 MG TAB.CHEW PO PRN (11:00)
[2021-04-02 11:02] VITALS: BP 101/61
[2021-04-02] MEDS ORDERED: ONDANSETRON ODT 4 MG TAB.RAPDIS PO PRN (11:15)
[2021-04-02] MEDS ORDERED: MELATONIN 3 MG TABLET PO PRN (11:15)
[2021-04-02] MEDS ORDERED: PROCHLORPERAZINE 5 MG TABLET. PO PRN (11:45)
[2021-04-02] MEDS: LIPASE/PROTEAS/AMYLAS 10/32/42 CAPSULE.DR. PO SCH ×2 (11:59→17:47)
[2021-04-02] MEDS: FOLIC ACID 1 MG TABLET PO SCH (12:00)
[2021-04-02] MEDS: traZODone 50 MG TABLET. PO SCH (12:00)
[2021-04-02] MEDS: GABAPENTIN 300 MG CAPSULE. PO SCH ×2 (12:00→20:55)
[2021-04-02] MEDS: ACETAMINOPHEN 500 MG TABLET PO SCH ×2 (12:00→18:24)
[2021-04-02] MEDS ORDERED: NICOTINE POLACRILEX PO SCH (12:00)
[2021-04-02] MEDS: THIAMINE 100 MG TABLET. PO SCH (12:01)
--- NOTE | 2021-04-02 12:08 | PN ---
DATE: 04/02/2021 SUBJECTIVE: The patient is resting flat in bed, in no apparent respiratory distress. He is awake, alert. He is tolerating liquid diet. His lab work showed that his white cell count is down to 10,000. His lipase is down to 360. His chemistry is all otherwise fine. OBJECTIVE: GENERAL: On examining him, he looked well and was clearly in no apparent respiratory distress. There is no pallor, jaundice, cyanosis or thyromegaly. No jugular venous distention. No lower limb edema. VITAL SIGNS: Her heart rate was 87, blood pressure is 108/74, temperature was 98.3, respiratory rate was 18 and oxygen saturation was 93% on room air. HEAD, EYES, EARS, NOSE, AND THROAT: Normocephalic, atraumatic. NECK: Supple. HEART: Showed normal first and second heart sounds. No gallop, rub or murmur. CHEST: Clear to auscultation, no crepitation or rhonchi. ABDOMEN: Distended, soft, nontender. NEUROLOGIC: He was grossly intact. His intake and output: His intake was 1050, output was incompletely recorded. LABORATORY DATA: This morning showed his white cell count is 10,000, hemoglobin 13.7, hematocrit 43, MCV 93, and platelet count of 153,000. His chemistry showed a serum sodium 136, potassium 3.9, chloride 102, bicarbonate 24, anion gap of 10, BUN 6, creatinine 0.6. Estimated GFR was 152 mL per minute. His glucose was 86, calcium was 8.3. Total bilirubin, AST, ALT, alkaline phosphatase were normal. Total protein 6.2, albumin 2.9 and serum lipase was 160. ASSESSMENT: 1. Acute on chronic alcoholic pancreatitis. 2. Question intraabdominal infection. 3. Alcohol abuse. 4. Marijuana abuse. 5. Nicotine dependence. PLAN: To continue with IV fluid. Continue with pain management. We will advance diet as tolerated. I have reconciled all his medication and hopefully we can take off all his IV medications and discharge him home tomorrow, to follow with his quality improvement consultant at [facility]. I will also contact his quality improvement consultant tomorrow as he has this fluid around the paracolic gutter, has leukocytosis and possible inflammation. DESEAN/KIRAN DR: Chrissy TID: [id number]
[2021-04-02] MEDS: hydrOXYzine HCL 25 MG TABLET PO SCH ×2 (13:43→20:55)
[2021-04-02 15:56] VITALS: BP 114/76
[2021-04-02] MEDS ORDERED: oxyCODONE/APAP 5/325 1 TAB TABLET PO PRN (17:45)
[2021-04-02 18:18] VITALS: BP 105/69
[2021-04-02] MEDS: MORPHINE ER 15 MG TABLET.ER PO SCH (20:56)
[2021-04-02] MEDS ORDERED: PRAZOSIN 1 MG CAPSULE. PO SCH (21:00)
[2021-04-02] MEDS ORDERED: GABAPENTIN 300 MG CAPSULE. PO SCH (21:00)
[2021-04-02] MEDS ORDERED: traZODone 150 MG TABLET. PO SCH (21:00)
[2021-04-03] MEDS: ACETAMINOPHEN 500 MG TABLET PO SCH ×2 (05:55)
[2021-04-03 06:15] VITALS: BP 120/77
[2021-04-03 06:47] LABS: HEMATOCRIT 39.9 % (39.0-53.0); HEMOGLOBIN 13.3 g/dL (13.0-17.5); RED BLOOD COUNT 4.47 x10^6/uL (4.30-5.70); RED CELL DISTRIBUTION WIDTH 15.6 % (11.5-14.5); WHITE BLOOD COUNT 7.7 x10^3/uL (4.0-11.0)
[2021-04-03 06:56] LABS: CALCIUM 8.3 mg/dL (8.5-10.1); CREATININE 0.6 mg/dL (0.7-1.3); GFR 152.4; POTASSIUM 4.1 mmol/L (3.5-5.1)
[2021-04-03] MEDS ORDERED: PANTOPRAZOLE 40 MG TABLET. PO SCH (07:30)
[2021-04-03] MEDS: THIAMINE 100 MG TABLET. PO SCH (08:14)
[2021-04-03] MEDS: MORPHINE ER 15 MG TABLET.ER PO SCH (08:14)
[2021-04-03] MEDS: LIPASE/PROTEAS/AMYLAS 10/32/42 CAPSULE.DR. PO SCH (08:15)
[2021-04-03] MEDS: hydrOXYzine HCL 25 MG TABLET PO SCH (08:15)
[2021-04-03] MEDS: FOLIC ACID 1 MG TABLET PO SCH (08:15)
[2021-04-03] MEDS: LACTOBACILLUS RHAMNOSUS GG 1 CAPSULE. PO SCH (08:15)
[2021-04-03] MEDS: GABAPENTIN 300 MG CAPSULE. PO SCH (08:16)
[2021-04-03] MEDS: traZODone 50 MG TABLET. PO SCH (08:19)
[2021-04-03 10:46] VITALS: BP 111/73
[2021-04-03] MEDS ORDERED: OXYC5TAB4 PO (11:38)
[2021-04-03] MEDS ORDERED: CEFD300C PO (11:38)
[2021-04-03] MEDS ORDERED: MORP-15 PO (11:38)
== END 2021-04-03 12:07 | disposition home or self-care (01) | DRG 438 ==
LOC: ER 17:13 → 1 SOUTH 20:22
PROVIDERS: ADMIT Internal Medicine; ATTEND Internal Medicine
DX: K85.20 Alcohol induced acute pancreatitis without necrosis or infection (principal); R65.11 Systemic inflammatory response syndrome (SIRS) of non-infectious origin with acute organ dysfunction; F12.10 Cannabis abuse, uncomplicated; F17.200 Nicotine dependence, unspecified, uncomplicated; K86.0 Alcohol-induced chronic pancreatitis; F10.20 Alcohol dependence, uncomplicated; F32.A Depression, unspecified; F41.9 Anxiety disorder, unspecified; Z20.822 Contact with and (suspected) exposure to COVID-19
CPT/HCPCS: 36415; 74177; 80048; 80053; 81001; 83690; 85007; 85025; 85027; 87426; 90471; 90686; 96361; 96374; 99406; J0696; J1170; J2270; J2405; J2765; J7120; Q9967; U0003; 99285-25

== ENCOUNTER 2021-05-11 11:06 | Emergency (ER) | payer MEDICAID ==
[~2021-05-11] VITALS: Ht 175.3 cm; Wt 67.9 kg
[~2021-05-11 11:06] MED LIST changes: +CEFD300C PO; +NICO4LOZ93 PO; +OXYC5TAB4 PO
[2021-05-11 12:08] VITALS: BP 105/72
[2021-05-11] MEDS ORDERED: ONDANSETRON PF 4 MG/2 ML VIAL. IVP ONE (15:15)
[2021-05-11] MEDS ORDERED: IOHEXOL 300 MG/ML 75 ML VIAL. IV ONE (15:15)
[2021-05-11] MEDS ORDERED: IV NORMAL SALINE 1,000ML 1,000 ML IV ONE (15:15)
--- NOTE | 2021-05-11 15:43 | RAD ---
Ultrasound of the right upper extremity, HISTORY: Palpable abnormality, months informed Ultrasound was used to evaluate the right forearm. There is evidence of superficial venous thrombosis in the subcutaneous tissues at the location of the palpable abnormalities. Complete upper extremity venous study was not performed. IMPRESSION: 1. Superficial venous thrombosis right forearm. Electronically signed by: Byron Truong MD (05/11/2021 3:40 PM) [facility]
--- NOTE | 2021-05-11 15:57 | PHYS DOC ---
Past History Past Medical History: Alcoholism, Anxiety, Depression, Pancreatitis Additional Past Medical Histor: chronic pancreatitis (CATHY WILLS APRN) Past Surgical History: Other Additional Past Surgical Histo: ERCP, colonoscopies; stents and drains (CATHY WILLS APRN) Smoking: Cigarettes Alcohol Use: Sober Drug Use: Marijuana (CATHY WILLS APRN) General Adult EDM: Chief Complaint: ABDOMINAL PAIN HPI: HPI: Patient is a 36-year-old male who presents today with abdominal pain and right lower arm concern for blood clots. Patient states she just got out of intermediate yesterday and presents today to the emergency department for upper abdominal pain that radiates to the lower abdomen. Patient states he has a history of pancreatitis due to alcoholism, he states that he has not had anything to drink for a little over 4 weeks, and says that he has had abdominal pain since he was in [facility] and today he would like it evaluated. He is also concerned with his right lower arm he was told he had superficial blood clots in his arm and has only been receiving aspirin for these and he is concerned that they had gotten worse. Patient denies chest pain, shortness of air, cough, fever or chills, or painful urination or blood in his urine. (CATHY WILLS APRN) Review of Systems: Review of Systems: Constitutional: Denies fever or chills Eyes: Denies change in visual acuity HENT: Denies nasal congestion or sore throat Respiratory: Denies cough or shortness of breath Cardiovascular: Denies chest pain or edema GI: Abdominal pain and nausea : Denies dysuria Musculoskeletal: Denies back pain or joint pain Integument: Denies rash Neurologic: Denies headache, focal weakness or sensory changes Endocrine: Denies polyuria or polydipsia Lymphatic: Denies swollen glands Psychiatric: Denies depression or anxiety (CATHY WILLS APRN) Current Medications: Current Meds: Current Medications Medications (Trade) Dose Ordered Sig/Netta Start Time Stop Time Status Last Admin Dose Admin Iohexol (Omnipaque 300 Mg/ml) 75 ml 1X ONCE 05/11/21 15:15 05/11/21 15:16 DC 05/11/21 15:28 75 ML Ondansetron HCl (Zofran) 4 mg 1X ONCE 05/11/21 15:15 05/11/21 15:16 DC Sodium Chloride 1,000 ml @ 1,000 mls/hr 1X ONCE 05/11/21 15:15 05/11/21 16:14 (CATHY WILLS APRN) Allergies: Allergies: Allergies Coded Allergies Type Severity Reaction Last Updated Verified adhesive Allergy Intermediate 03/31/21 Yes No Known Allergies Allergy Unknown 02/04/20 Yes (CATHY WILLS APRN) Physical Exam: PE: Constitutional: Well developed, well nourished, no acute distress, non-toxic appearance. [] HENT: Normocephalic, atraumatic, bilateral external ears normal, oropharynx moist, no oral exudates, nose normal. [] Eyes: PERRLA, EOMI, conjunctiva normal, no discharge. [] Neck: Normal range of motion, no tenderness, supple, no stridor. [] Cardiovascular:Heart rate regular rhythm, no murmur [] Lungs & Thorax: Bilateral breath sounds clear to auscultation [] Abdomen: Bowel sounds normal, soft, tenderness in the epigastric region, no masses, no pulsatile masses. [] Skin: Warm, dry, no erythema, no rash. [] Back: No tenderness, no CVA tenderness. [] Extremities: Right arm lower arm showed some bruising noted along the vessels, appears from old IV sticks, vessels are hard in nature, no redness no swelling noted right arm has neurovascular intact distal to that area of concern. Neurologic: Alert and oriented X 3, normal motor function, normal sensory function, no focal deficits noted. [] Psychologic: Affect normal, judgement normal, mood normal. [] (CATHY WILLS APRN) Current Patient Data: Labs: Laboratory Tests Test 05/11/21 16:10 05/11/21 16:24 White Blood Count 4.3 x10^3/uL Red Blood Count 4.83 x10^6/uL Hemoglobin 14.1 g/dL Hematocrit 41.5 % Mean Corpuscular Volume 86 fL Mean Corpuscular Hemoglobin 29 pg Mean Corpuscular Hemoglobin Concent 34 g/dL Red Cell Distribution Width 15.4 % Platelet Count 157 x10^3/uL Neutrophils (%) (Auto) 60 % Lymphocytes (%) (Auto) 28 % Monocytes (%) (Auto) 9 % Eosinophils (%) (Auto) 3 % Basophils (%) (Auto) 1 % Neutrophils # (Auto) 2.6 x10^3uL Lymphocytes # (Auto) 1.2 x10^3/uL Monocytes # (Auto) 0.4 x10^3/uL Eosinophils # (Auto) 0.1 x10^3/uL Basophils # (Auto) 0.0 x10^3/uL Sodium Level 140 mmol/L Potassium Level 3.8 mmol/L Chloride Level 101 mmol/L Carbon Dioxide Level 28 mmol/L Anion Gap 11 Blood Urea Nitrogen 10 mg/dL Creatinine 0.6 mg/dL Estimated GFR (Cockcroft-Gault) 152.4 BUN/Creatinine Ratio 17 Glucose Level 88 mg/dL Calcium Level 8.2 mg/dL Total Bilirubin 0.4 mg/dL Aspartate Amino Transf (AST/SGOT) 17 U/L Alanine Aminotransferase (ALT/SGPT) 29 U/L Alkaline Phosphatase 111 U/L Total Protein 6.3 g/dL Albumin 3.8 g/dL Albumin/Globulin Ratio 1.5 Lipase 764 U/L Influenza Type A (Rapid) Negative Influenza Type B (Rapid) Negative SARS-CoV-2 Antigen (Rapid) Positive Current Medications Medications (Trade) Dose Ordered Sig/Netta Route PRN Reason Start Time Stop Time Status Last Admin Dose Admin Sodium Chloride 1,000 ml @ 1,000 mls/hr 1X ONCE IV 05/11/21 15:15 05/11/21 16:14 DC 05/11/21 16:40 Ondansetron HCl (Zofran) 4 mg 1X ONCE IVP 05/11/21 15:15 05/11/21 15:16 DC 05/11/21 16:40 Iohexol (Omnipaque 300 Mg/ml) 75 ml 1X ONCE IV 05/11/21 15:15 05/11/21 15:16 DC 05/11/21 15:28 Vital Signs: Vital Signs Date Time Temp Pulse Resp B/P (MAP) Pulse Ox O2 Delivery O2 Flow Rate FiO2 05/11/21 12:08 98.1 91 16 105/72 (83) 98 Room Air Vital Signs Date Time Temp Pulse Resp B/P (MAP) Pulse Ox O2 Delivery O2 Flow Rate FiO2 05/11/21 12:08 98.1 91 16 105/72 (83) 98 Room Air (CATHY WILLS MANAGER TESTING) EKG: EKG: [] (CATHY WILLS MANAGER TESTING) Radiology/Procedures: Radiology/Procedures: REASON: abd pain with hx of pancreatitis, nausea, vomiting OMNI 300, 75ml PROCEDURE: CT ABD PELV W/ IV CONTRST ONLY CT STUDY OF THE ABDOMEN AND PELVIS WITH CONTRAST Clinical indications: Abdominal pain with nausea and vomiting. History of pancreatitis. TECHNIQUE: After IV infusion of [ ], helical CT scanning of the abdomen and pelvis was performed. GI contrast was administered per mouth. {GI contrast was not administered. This may decrease the sensitivity to detect GI tract pathology.} PQRS COMPLIANCE STATEMENT One or more of the following individualized dose reduction techniques were utilized for this study: 1. Automated exposure control 2. Adjustment of the mA and/or kV according to patient size 3. Use of iterative reconstruction technique COMPARISON: March 31, 2021. FINDINGS: A biliary stent is again evident. There is air within the biliary tree as a result. No hepatic mass is seen. The spleen is not enlarged. There is calcification of the pancreas consistent with chronic pancreatitis. The previously seen peripancreatic inflammation around the head and neck of the pancreas has significantly improved. There is residual mild peripancreatic edema between the head/neck of the pancreas and the duodenum. There is mild reactive duodenal wall edema. There is mild dilatation of the distal pancreatic duct within the head and neck of the pancreas measuring up to 5 mm. This is unchanged. No peripancreatic edema surrounding the body or tail of pancreas. There is a new cyst of the inferior aspect of the head of the pancreas measuring 10 mm in size. No adrenal mass is evident. Both kidneys are normal without hydronephrosis or hydroureter. The urinary bladder wall is smooth. No focal aneurysmal dilatation of the abdominal aorta is seen. No enlarged abdominal or pelvic lymphadenopathy is seen. No obstructive bowel pattern is seen. The appendix and terminal ileum are normal. No lytic process is seen. No lung base consolidative infiltrate is seen. IMPRESSION: Improvement of the peripancreatic edema since March 31, 2021. Residual peripancreatic edema is still present between the head/neck of the pancreas and the duodenum with mild duodenal wall edema. There is a new cyst of the inferior aspect of the head of the pancreas. This could represent an intraparenchymal pseudocyst. Air is seen within the biliary tree and the gallbladder from a biliary stent. No gallbladder wall thickening is seen. There is a small amount of pericholecystic fluid within the gallbladder fossa which was not seen previously. This most likely is secondary to the pancreatitis given the inflammation seen previously extending towards the gallbladder fossa. Electronically signed by: Aston Davis MD (05/11/2021 4:01 PM) [id number][] REASON: RT FOREARM LUMPS PROCEDURE: EXT NON VASC RIGHT COMPLETE Ultrasound of the right upper extremity, HISTORY: Palpable abnormality, months informed Ultrasound was used to evaluate the right forearm. There is evidence of superficial venous thrombosis in the subcutaneous tissues at the location of the palpable abnormalities. Complete upper extremity venous study was not performed. IMPRESSION: 1. Superficial venous thrombosis right forearm. Electronically signed by: Byron Truong MD (05/11/2021 3:40 PM) [facility] (CATHY WILLS APRN) Heart Score: C/O Chest Pain: N/A Risk Factors: Risk Factors: DM, Current or recent (<one month) smoker, HTN, HLP, family history of CAD, obesity. Risk Scores: Score 0 - 3: 2.5% MACE over next 6 weeks - Discharge Home Score 4 - 6: 20.3% MACE over next 6 weeks - Admit for Clinical Observation Score 7 - 10: 72.7% MACE over next 6 weeks - Early Invasive Strategies (CATHY WILLS APRN) Course & Med Decision Making: Course & Med Decision Making Pertinent Labs and Imaging studies reviewed. (See chart for details) 1750 reviewed radiological and laboratory results with patient. Patient states he has an appointment with a GI specialist at the [facility] on May 17 for management of his pancreatic disease. I did inform him of his COVID-positive status and that he may need to call their office to inform them of that and that may change his appointment time. Patient also informed his lipase was elevated but patient states that he has not had any nausea or vomiting or increased pain while in the department he is requesting to go home at this time. Will write for pain medication and nausea medication for him to manage his pain and nausea at home. Patient informed that he will need to quarantine 10 days for the first day of his symptoms due to the COVID-19 status. Patient verbalizes understanding of this and is agreeable with the plan of care. (CATHY WILLS APRN) Dragon Disclaimer: Dragon Disclaimer: This electronic medical record was generated, in whole or in part, using a voice recognition dictation system. (CATHY WILLS APRN) Attending Co-Sign The patient was seen and interviewed as well as examined at the bedside. The chart was reviewed. The case was discussed. Agree with the plan of care. (KEITH CHAN DO) Departure Departure: Impression: Primary Impression: Chronic pancreatitis Qualified Codes: K86.1 - Other chronic pancreatitis Additional Impression: COVID-19 Disposition: HOME / SELF CARE / HOMELESS Condition: STABLE Referrals: CHI BRUMFIELD MD (PCP) Patient Instructions: Acute Pancreatitis, Clear Liquid Diet Additional Instructions: Hydrocodone take 1 to 2 tablets every 6 hours as needed for severe pain. Use with caution may cause drowsiness do not operate heavy machinery while taking this. Also may cause constipation. Zofran take 1 tablet every 6 hours as needed for nausea. Take 1 tablet wait 30 to 45 minutes before trying clear liquids. Clear liquids for the next 24 hours, and then advance to a bland diet. Follow-up tomorrow by phone with your GI specialist the [facility] to let them know you are in the emergency department, you will be given a copy of your CT scan results to show them to continuation of care. Ibuprofen as needed for pain. You have been tested for or diagnosed with COVID-19. It is an infection caused by a new type of coronavirus. COVID-19 will cause cold-like or mild flu symptoms in most. It can cause more severe symptoms like problems breathing in some. There is no treatment for COVID-19. The body will clear the infection over time. Self-care will help to ease discomfort. Steps to Take: Self-Care Rest as needed. Healthy habits may help you feel better. Steps include: Choose healthy foods including fruits and vegetables. Drink water throughout the day. Get plenty of sleep each night. If you smoke, try to quit. It may ease breathing. Avoid alcohol. Keep Others Healthy The virus can spread to others. Droplets are released every time you sneeze or cough. The droplets can get into the mouth, nose, or eyes of people near you and lead to infection. To lower the chances of spreading COVID-19 to others: Stay at home until your doctor has said it is safe to leave. If you tested positive this will mean staying isolated until both of the following are true: At least 10 days have passed since the start of illness. You are free of fever for at least 72 hours without the use of medicine. During this time: - Avoid public areas, events, or transportation. Do not return to work or school until your doctor has said it is safe to do so. - Call ahead if you need to go to a medical center. Let them know you may have COVID-19. It will help them guide you where to go. They may also ask you to wear a facemask when you come to the office. - If you call for emergency medical services, let them know you may have COVID- 19. While at home: - Try to avoid close contact with others. Stay about 6 feet away. - If possible, spend most of your time in a separate room from others. - Use a face mask if you will be in close contact with others such as sharing a room or vehicle. - Have someone wipe down common surfaces in the home. Use household e commerce specialist every day on areas like doorknobs, counters, or sinks. - Cough or sneeze into a tissue. Throw the tissue away right after use. If a tissue is not available, cough or sneeze into your elbow. - Wash your hands often. Wash them after sneezing or coughing. Use soap and water and wash for at least 20 seconds. Alcohol based hand carbon cleaner can be used if soap and water is not available. - Do not prepare food for others. Avoid sharing personal items like forks, spoons, or toothbrushes. - Avoid close contact with pets while you are sick. There is no evidence of the virus passing to pets. This is a safety step until more is known about this virus. Isolation can be frustrating. Social interaction can help. Keep in touch with friends and family through phone and tech options. You can still interact with others in your home, just keep a safe distance of about 6 feet. Follow-up: Your doctors office will check in with you to see if there are any changes in your health. You may be asked to keep track of symptoms to share with them. They will also let you know when you are clear to be in public again. Problems to Look Out For: Contact your doctor if your recovery is not going as you expect. Get emergency care if you have problems such as: - Trouble breathing - Nonstop chest pain or pressure - Changes in awareness, confusion, or problems waking - Lips or face have bluish color - Worsening of symptoms If you think you have an emergency, call for emergency medical services right away. As taken from [facility] Ondansetron (ONDANSETRON ODT) 4 Mg Tab.rapdis 1 TAB PO PRN Q6-8HRS for nausea, #16 TAB Prov: CATHY WILLS MANAGER TESTING 05/11/21 Hydrocodone Bit/Acetaminophen (HYDROCODONE-APAP 5-325 ) 1 Each Tablet 1 TAB PO PRN Q6HRS PRN for PAIN, #20 TAB 0 Refills Prov: CATHY WILLS MANAGER TESTING 05/11/21 CATHY WILLS APRN May 11, 2021 15:56 KEITH CHAN DO May 12, 2021 06:38
--- NOTE | 2021-05-11 16:04 | RAD ---
CT STUDY OF THE ABDOMEN AND PELVIS WITH CONTRAST Clinical indications: Abdominal pain with nausea and vomiting. History of pancreatitis. TECHNIQUE: After IV infusion of [ ], helical CT scanning of the abdomen and pelvis was performed. GI contrast was administered per mouth. {GI contrast was not administered. This may decrease the sensiti vity to detect GI tract pathology.} PQRS COMPLIANCE STATEMENT One or more of the following individualized dose reduction techniques were utilized for this study: 1. Automated exposure control 2. Adjustment of the mA and/or kV according to patient size 3. Use of iterative reconstruction technique COMPARISON: March 31, 2021. FINDINGS: A biliary stent is again evident. There is air within the biliary tree as a result. No hepa tic mass is seen. The spleen is not enlarged. There is calcification of the pancreas consistent with chronic pancreatitis. The previously seen peripancreatic inflammation around the head and neck of the pancreas has significantly improved. There is residual mild peripancreatic edema between the head/ne ck of the pancreas and the duodenum. There is mild reactive duodenal wall edema. There is mild dilata tion of the distal pancreatic duct within the head and neck of the pancreas measuring up to 5 mm. Thi s is unchanged. No peripancreatic edema surrounding the body or tail of pancreas. There is a new cyst of the inferior aspect of the head of the pancreas measuring 10 mm in size. No adrenal mass is evide nt. Both kidneys are normal without hydronephrosis or hydroureter. The urinary bladder wall is smooth . No focal aneurysmal dilatation of the abdominal aorta is seen. No enlarged abdominal or pelvic lymp hadenopathy is seen. No obstructive bowel pattern is seen. The appendix and terminal ileum are normal . No lytic process is seen. No lung base consolidative infiltrate is seen. IMPRESSION: Improvement of the peripancreatic edema since March 31, 2021. Residual peripancreatic e merle is still present between the head/neck of the pancreas and the duodenum with mild duodenal wall edema. There is a new cyst of the inferior aspect of the head of the pancreas. This could represent a n intraparenchymal pseudocyst. Air is seen within the biliary tree and the gallbladder from a biliary stent. No gallbladder wall thi ckening is seen. There is a small amount of pericholecystic fluid within the gallbladder fossa which was not seen previously. This most likely is secondary to the pancreatitis given the inflammation see n previously extending towards the gallbladder fossa. Electronically signed by: Aston Davis MD (05/11/2021 4:01 PM) [id number]
[2021-05-11 16:47] LABS: BASO % 1 % (0-3); EOS # 0.1 x10^3/uL (0.0-0.7); EOS % 3 % (0-3); HEMATOCRIT 41.5 % (39.0-53.0); HEMOGLOBIN 14.1 g/dL (13.0-17.5); LYMPH # 1.2 x10^3/uL (1.0-4.8); LYMPH % 28 % (24-48); MEAN CORPUSCULAR HEMOGLOBIN 29 pg (25-35); MEAN CORPUSCULAR HGB CONC 34 g/dL (31-37); MEAN CORPUSCULAR VOLUME 86 fL (79-100); MONO # 0.4 x10^3/uL (0.0-1.1); MONO % 9 % (0-9); NEUT # 2.6 x10^3uL (1.8-7.7); NEUT % 60 % (31-73); PLATELET COUNT 157 x10^3/uL (140-400); RED BLOOD COUNT 4.83 x10^6/uL (4.30-5.70); RED CELL DISTRIBUTION WIDTH 15.4 % (11.5-14.5); WHITE BLOOD COUNT 4.3 x10^3/uL (4.0-11.0)
[2021-05-11 16:48] LABS: CALCIUM 8.2 mg/dL (8.5-10.1); CREATININE 0.6 mg/dL (0.7-1.3); GFR 152.4; POTASSIUM 3.8 mmol/L (3.5-5.1)
[2021-05-11 16:54] LABS: ALBUMIN 3.8 g/dL (3.4-5.0); ALBUMIN/GLOBULIN RATIO 1.5 (1.0-1.7); TOTAL BILIRUBIN 0.4 mg/dL (0.2-1.0); TOTAL PROTEIN 6.3 g/dL (6.4-8.2)
[2021-05-11 17:36] LABS: INFLUENZA A PATIENT NEGATIVE (NEGATIVE); INFLUENZA B PATIENT NEGATIVE (NEGATIVE)
[2021-05-11] MEDS ORDERED: HYDR-2155 PO (18:01)
[2021-05-11] MEDS ORDERED: ONDA4TAB12 PO (18:01)
== END 2021-05-11 18:10 | disposition home or self-care (01) ==
LOC: ER 11:06
DX: U07.1 COVID-19 (principal); K86.1 Other chronic pancreatitis; F17.210 Nicotine dependence, cigarettes, uncomplicated; F10.20 Alcohol dependence, uncomplicated; Z88.8 Allergy status to other drugs, medicaments and biological substances; Y90.9 Presence of alcohol in blood, level not specified
CPT/HCPCS: 36415; 74177; 76881; 80053; 83690; 85025; 87428; 96361; 96374; 99285; J2405; J7030; Q9967

== ENCOUNTER → 2021-07-10 | Outpatient (CLI) | payer MEDICAID ==
[~2021-07-10] MED LIST changes: +HYDR-2155 PO; +ONDA4TAB12 PO
--- NOTE | 2021-07-10 15:38 | RAD ---
EXAM: Lumbar spine CT without contrast. HISTORY: Pain. TECHNIQUE: Computed tomographic images of the lumbar spine were obtained without contrast. Multiplana r reformatting was performed. *One or more of the following individualized dose reduction techniques were utilized for this examina tion: 1. Automated exposure control. 2. Adjustment of the mA and/or kV according to patient size. 3. Use of iterative reconstruction technique. COMPARISON: CT dated 03/31/2021. FINDINGS: There is minimal retrolisthesis of L4 on L5, measuring 2 mm. There is minimal multilevel en dplate remodeling. There is no fracture or suspicious osseous lesion. There are extensive calcificati ons within the proximal pancreas. The possibility of an underlying pancreatic mass is not excluded on the [id number]. There is minimal spurring and vacuum phenomenon involving the sacroiliac joints. There is a common bile duct stent and pneumobilia. At L1-L2, there is no stenosis. At L2-L3, there is no stenosis. At L3-L4, there is no stenosis. At L4-L5, there is a disc bulge. There is slight retrolisthesis. There is mild bilateral foraminal an d central canal stenosis. At L5-S1, there is no stenosis. IMPRESSION: 1. Mild degenerative change involving the lumbar spine, described in detail above. This results in mi ld bilateral foraminal and central canal stenosis at L4-L5. 2. Extensive pancreatic calcifications an pancreatic ductal dilatation, a finding which can be seen a s a sequela of chronic pancreatitis. There is also a biliary stent and pneumobilia. The possibility o f an underlying pancreatic mass is not excluded. The previously demonstrated inflammatory stranding s urrounding the pancreas has decreased, allowing for limitations on the current exam due to the field- of-view. Electronically signed by: Natalie Villanueva MD (07/10/2021 3:36 PM) [id number]
== END ==
LOC: CT 13:43
PROVIDERS: ATTEND Anesthesiology
DX: M47.26 Other spondylosis with radiculopathy, lumbar region (principal); M48.061 Spinal stenosis, lumbar region without neurogenic claudication; K86.89 Other specified diseases of pancreas
CPT/HCPCS: 72131

== ENCOUNTER 2021-09-17 06:49 | Emergency (ER) | payer MEDICAID ==
[~2021-09-17] VITALS: Ht 175.3 cm; Wt 80.1 kg
--- NOTE | 2021-09-17 07:28 | PHYS DOC ---
Past History Past Medical History: Alcoholism, Anxiety, Depression, Pancreatitis Additional Past Medical Histor: chronic pancreatitis Past Surgical History: Other Additional Past Surgical Histo: ERCP, colonoscopies; stents and drains Smoking: Cigarettes Alcohol Use: None Drug Use: Marijuana General Adult EDM: Chief Complaint: ABDOMINAL PAIN HPI: HPI: 36-year-old male presents with concern for pancreatitis. The patient has had pancreatitis multiple times in the past. He sees a specialist at . He tells me that he has been doing fairly well until about 5 AM when he started to have intense epigastric pain. Patient states that this pain feels like his previous bouts of pancreatitis. He has had nausea and vomiting. Patient denies drinking any alcohol. Denies fever or chills. Review of Systems: Review of Systems: Constitutional: Denies fever or chills Eyes: Denies change in visual acuity HENT: Denies nasal congestion or sore throat Respiratory: Denies cough or shortness of breath Cardiovascular: Denies chest pain or edema GI: Epigastric abdominal pain, nausea, vomiting. : Denies dysuria Musculoskeletal: Denies back pain or joint pain Integument: Denies rash Neurologic: Denies headache, focal weakness or sensory changes Endocrine: Denies polyuria or polydipsia Lymphatic: Denies swollen glands Psychiatric: Denies depression or anxiety Current Medications: Current Meds: Current Medications Medications (Trade) Dose Ordered Sig/Netta Start Time Stop Time Status Last Admin Dose Admin Ondansetron HCl (Zofran) 4 mg 1X ONCE 09/17/21 07:30 09/17/21 07:31 Sodium Chloride 1,000 ml @ 1,000 mls/hr 1X ONCE 09/17/21 07:30 09/17/21 08:29 Allergies: Allergies: Allergies Coded Allergies Type Severity Reaction Last Updated Verified adhesive Allergy Intermediate 03/31/21 Yes No Known Allergies Allergy Unknown 02/04/20 Yes Physical Exam: PE: Constitutional: Well developed, well nourished, no acute distress, non-toxic appearance. [] HENT: Normocephalic, atraumatic, bilateral external ears normal, oropharynx moist, no oral exudates, nose normal. [] Eyes: PERRLA, EOMI, conjunctiva normal, no discharge. [] Neck: Normal range of motion, no tenderness, supple, no stridor. [] Cardiovascular: Heart rate regular rhythm, no murmur [] Lungs & Thorax: Bilateral breath sounds clear to auscultation [] Abdomen: Bowel sounds normal, soft, epigastric tenderness, no masses, no pulsatile masses. [] Skin: Warm, dry, no erythema, no rash. [] Back: No tenderness, no CVA tenderness. [] Extremities: No tenderness, no cyanosis, no clubbing, ROM intact, no edema. [] Neurologic: Alert and oriented X 3, normal motor function, normal sensory function, no focal deficits noted. [] Psychologic: Affect normal, judgement normal, mood normal. [] Current Patient Data: Vital Signs: Vital Signs Date Time Temp Pulse Resp B/P (MAP) Pulse Ox O2 Delivery O2 Flow Rate FiO2 09/17/21 07:09 97.8 96 22 126/90 (102) 97 EKG: EKG: [] Radiology/Procedures: Radiology/Procedures: [] Heart Score: C/O Chest Pain: N/A Risk Factors: Risk Factors: DM, Current or recent (<one month) smoker, HTN, HLP, family history of CAD, obesity. Risk Scores: Score 0 - 3: 2.5% MACE over next 6 weeks - Discharge Home Score 4 - 6: 20.3% MACE over next 6 weeks - Admit for Clinical Observation Score 7 - 10: 72.7% MACE over next 6 weeks - Early Invasive Strategies Course & Med Decision Making: Course & Med Decision Making Pertinent Labs and Imaging studies reviewed. (See chart for details) The patient's labs are unremarkable except for a lipase of 595. This is similar to previous levels in his chart. He has had a much higher and a bit lower. Given 4 mg of morphine and he still has significant pain. I will give him 1 mg of Dilaudid. This made a significant difference in the patient's discomfort. He would like to attempt to go home. After period of bleeding, we gave him his usual dose of oxycodone 10/325. He feels well enough to go home. I will discharge him with a short course of this medication as he has an appointment in 2 days with his primary for his main pain medication refill. He is stable for discharge at this time. [] Dragon Disclaimer: Dragon Disclaimer: This electronic medical record was generated, in whole or in part, using a voice recognition dictation system. Departure Departure: Impression: Primary Impression: Chronic pancreatitis Disposition: HOME / SELF CARE / HOMELESS Condition: STABLE Referrals: CHI BRUMFIELD MD (PCP) Patient Instructions: Acute Pancreatitis, Boia-id-Eirc Scripts Oxycodone Hcl/Acetaminophen (PERCOCET 10-325 MG TABLET ) 1 Each Tablet 1 TAB PO TID PRN for PAIN MDD 4 Tablet(s), #10 TAB 0 Refills Prov: KEITH CHAN DO 09/17/21 KEITH CHAN DO September 17, 2021 07:28
[2021-09-17] MEDS: ONDANSETRON PF 4 MG/2 ML VIAL. IVP ONE (07:32)
[2021-09-17] MEDS: IV NORMAL SALINE 1,000ML 1,000 ML IV ONE (07:32)
[2021-09-17] MEDS: MORPHINE SULFATE 4 MG/ML DISP.SYRIN. IV ONE (07:33)
[2021-09-17 08:04] LABS: BASO # 0.1 x10^3/uL (0.0-0.2); BASO % 1 % (0-3); EOS # 0.7 x10^3/uL (0.0-0.7); EOS % 7 % (0-3); HEMATOCRIT 44.9 % (39.0-53.0); HEMOGLOBIN 15.5 g/dL (13.0-17.5); LYMPH # 1.5 x10^3/uL (1.0-4.8); LYMPH % 15 % (24-48); MEAN CORPUSCULAR HEMOGLOBIN 30 pg (25-35); MEAN CORPUSCULAR HGB CONC 35 g/dL (31-37); MEAN CORPUSCULAR VOLUME 88 fL (79-100); MONO # 0.5 x10^3/uL (0.0-1.1); MONO % 5 % (0-9); NEUT # 7.2 x10^3uL (1.8-7.7); NEUT % 72 % (31-73); PLATELET COUNT 151 x10^3/uL (140-400); RED BLOOD COUNT 5.11 x10^6/uL (4.30-5.70); RED CELL DISTRIBUTION WIDTH 14.1 % (11.5-14.5)
[2021-09-17 08:08] LABS: BARBITURATES NEG (NEG); BENZODIAZEPINES NEG (NEG); CANNABINOIDS NEG (NEG); COCAINE NEG (NEG); METHADONE NEG (NEG); OPIATES NEG (NEG); PHENCYCLIDINE NEG (NEG)
[2021-09-17 08:09] LABS: AMPHETAMINE/METHAMPHETAMINE NEG (NEG)
[2021-09-17 08:14] LABS: CALCIUM 8.9 mg/dL (8.5-10.1); CREATININE 0.7 mg/dL (0.7-1.3); GFR 127.6
[2021-09-17 08:17] LABS: BACTERIA,URINE 0 /HPF (0-FEW); CLARITY,URINE CLEAR; COLOR,URINE YELLOW; GLUCOSE,URINE NEG (NEG); NITRITE,URINE NEG (NEG); RBC,URINE OCC /HPF (0-2); SQUAMOUS EPITHELIAL CELL,UR FEW /LPF; UROBILINOGEN,URINE 0.2 mg/dL (0.2 mg/dL)
[2021-09-17 08:20] LABS: ALBUMIN 3.7 g/dL (3.4-5.0); ALBUMIN/GLOBULIN RATIO 1.2 (1.0-1.7); TOTAL BILIRUBIN 0.4 mg/dL (0.2-1.0); TOTAL PROTEIN 6.8 g/dL (6.4-8.2)
[2021-09-17] MEDS: HYDROmorphone PF 1 MG/ML DISP.SYRIN IVP ONE (08:47)
[2021-09-17] MEDS ORDERED: OXYC1TAB22 PO (10:11)
[2021-09-17 10:15] VITALS: BP 118/76
[2021-09-17] MEDS: oxyCODONE/APAP 10/325 1 TAB TABLET PO SCH (10:15)
== END 2021-09-17 10:42 | disposition home or self-care (01) ==
LOC: ER 06:49
DX: K86.1 Other chronic pancreatitis (principal); F10.20 Alcohol dependence, uncomplicated; F17.210 Nicotine dependence, cigarettes, uncomplicated; Z88.8 Allergy status to other drugs, medicaments and biological substances; Y90.0 Blood alcohol level of less than 20 mg/100 ml
CPT/HCPCS: 36415; 80053; 80307; 81001; 83690; 85025; 96361; 96374; 96375; 99284; J1170; J2270; J2405; J7030